=== PATIENT | male | born 1960 | race Two or more races ===

== ENCOUNTER 2017-01-03 17:11 | Emergency (ER) | payer OTHER ==
[~2017-01-03] VITALS: Ht 157.5 cm; Wt 76.0 kg
[2017-01-03 17:33] VITALS: Ht 157.5 cm; Wt 76.0 kg
[2017-01-03 19:30] VITALS: TEMP 98.2
[2017-01-03] MEDS ORDERED: ONDANSETRON 4 MG INJ IM STA (19:44)
[2017-01-03] MEDS ORDERED: AMLO-147 PO (19:51)
[2017-01-03] MEDS ORDERED: RANI150T5 PO (19:51)
[2017-01-03] MEDS ORDERED: METO-448 PO (19:52)
[2017-01-03] MEDS ORDERED: GABA300C16 PO (19:52)
[2017-01-03] MEDS ORDERED: SEVE800T7 PO (19:53)
--- NOTE | 2017-01-03 20:42 | RADRPT ---
PROCEDURE: CT Brain without. CLINICAL INDICATION: Weakness. TECHNIQUE: A CT of the brain was performed on multidetector high-resolution CT scanner utilizing a xial sections from the skull base through the vertex without contrast. The scan was reviewed in sof t tissue brain and high frequency resolution bone algorithm windows. Images were reviewed on a high -resolution PACS workstation. One or more the following does reduction techniques were utilized: Aut omated exposure control, adjustment of the mA/ or kV according to patient's size, or use of iterativ e reconstruction technique. The exam CTDI = 42.93 mGy and the DLP = 720.23 mGy-cm. COMPARISON: None available. FINDINGS: The ventricles and sulci are mildly prominent indicative of volume loss. There is no intracranial he morrhage, mass effect or midline shift. No abnormal intra-axial or extra-axial fluid collections ar e seen. The smith/white matter differentiation is preserved. There is prominent retrocerebellar CSF space measuring 1.1 cm in AP diameter which may represent yashira a cisterna magna versus arachnoid cyst. Partially empty sella is noted. There are minimal scattered foci of hypoattenuation in the white matter, which are nonspecific in et iology but likely reflect chronic small vessel ischemic changes. The visualized paranasal sinuses de monstrate mild to moderate mucosal thickening, more pronounced in ethmoid air cells. The mastoid ai r cells are essentially clear. IMPRESSION: 1. No acute intracranial hemorrhage, transcortical infarction or mass effect. If clinical concern p ersists consider brain MRI. 2. Minimal chronic small vessel ischemic changes. 3. Prominent retrocerebellar CSF space which may represent carolina cisterna magna versus arachnoid cys t. 4. Partially empty sella. 5. Mild generalized cerebral volume loss. RPTAT: HFN .Trudy Arzate MD, MD Date Time Electronically viewed and signed by .Trudy Arzate MD, MD on 01/03/2017 20:42 .N/
--- NOTE | 2017-01-03 21:07 | ERD ---
ER Documentation Chief Complaint Date/Time DATE: 01/03/17 TIME: 21:05 Chief Complaint Feeling Nauseated and weak after Dialysis today HPI 56-year-old man here for feeling nauseated midway through his dialysis. He states he received an hour and a half of hemodialysis and began feeling nauseous and somewhat dizzy. He denied chest pain, no headache or blurry vision , no slurred speech, no weakness in his arms or legs, no vomiting or diarrhea. Patient states his symptoms improved after leaving the dialysis center. ROS All systems reviewed and are negative except as per history of present illness. Medications Home Meds Active Scripts Ondansetron Hcl* (Zofran*) 4 Mg Tablet, 4 MG PO Q8H Y for NAUSEA AND/OR VOMITING , #30 TAB Prov:TITO MENDIOLA MD 01/03/17 Reported Medications Sevelamer Carbonate* (Renvela*) 800 Mg Tablet, 2.4 GM PO WITH MEALS, TAB 01/03/17 Metoprolol Tartrate* (Lopressor*) 25 Mg Tab, 25 MG PO BID, #60 TAB 01/03/17 Gabapentin* (Gabapentin*) 300 Mg Capsule, 300 MG PO DAILY, #30 CAP 01/03/17 Amlodipine Besylate* (Amlodipine Besylate*) 10 Mg Tablet, 10 MG PO DAILY, #30 TAB 01/03/17 Ranitidine Hcl* (Ranitidine Hcl*) 150 Mg Tablet, 150 MG PO Q12, #60 TAB 01/03/17 Allergies Allergies: Coded Allergies: No Known Allergy (Unverified , 01/03/17) PMhx/Soc Hypertension, end-stage kidney disease hemodialysis dependent History of Surgery: Yes (kidney stent) Anesthesia Reaction: No Hx Neurological Disorder: No Hx Respiratory Disorders: No Hx Cardiac Disorders: No Hx Psychiatric Problems: No Hx Miscellaneous Medical Probl: Yes (ESRD on HD) Hx Alcohol Use: No Hx Substance Use: No Hx Tobacco Use: No Smoking Status: Never smoker FmHx Family History: No diabetes Physical Exam Vitals Vital Signs Date Time Temp Pulse Resp B/P Pulse Ox O2 Delivery O2 Flow Rate FiO2 01/03/17 21:37 72 20 159/85 99 Room Air 01/03/17 19:30 98.2 73 20 173/85 98 Room Air 01/03/17 17:33 98.3 71 20 193/90 98 Physical Exam GENERAL: Well-developed, well-nourished, well-hydrated, in no apparent distress , looks nontoxic in appearance HEENT: Moist mucous membranes, pink conjunctiva, no cervical spine tenderness or step-off deformities, no goiter, no jaundice or icterus, extraocular movements intact without pain. No submandibular induration, and no pharyngeal erythema NEURO: Alert and oriented 3, cranial nerves II through XII intact bilaterally, pupils equal round reactive to light, no focal deficits or facial asymmetry, sensation intact distally Strength 5/5 in upper and lower extremities bilaterally CARDIAC: Regular rate and rhythm, no murmurs rubs or gallops LUNGS: Clear bilaterally no wheezing crackles or stridor ABDOMEN: Soft nontender, no guarding, no rigidity, no rebound, no psoas sign no obturator sign. Normoactive bowel sounds SKIN: Warm and dry to touch, no abrasions, contusions, or hematomas, no lacerations, no ecchymosis, no target lesions, and without ulcers EXTREMITIES: No clubbing cyanosis or edema, calves are bilaterally symmetrical, no Homans sign, no popliteal cord sign. Distal pulses equal and bilateral PSYCH: Normal affect without agitation or irritability Results 24 hrs Laboratory Tests Test 01/03/17 20:05 Troponin I < 0.012ng/ml Current Medications Medications (Trade) Dose Ordered Sig/Harjeet Route PRN Reason Start Time Stop Time Status Last Admin Dose Admin Ondansetron HCl (Zofran Inj) 4 mg ONCE STAT IM 01/03/17 19:44 01/03/17 19:47 DC 01/03/17 19:56 Clonidine (Catapres) 0.1 mg ONCE ONCE PO 01/03/17 20:00 01/03/17 20:01 DC 01/03/17 19:57 Procedures/MDM Patient was placed on autocad designer rhythm strip revealed a sinus rhythm at about 70 bpm with upright P and T waves. Patient was afebrile. CT scan of the brain was performed that was negative for acute bleed mass or shift. EKG performed, read by me: 68 bpm, normal sinus rhythm, normal axis, no acute ST segment changes, narrow QRS complex, with good R-wave progression in precordial leads. Troponin was negative. For his symptoms I administered Zofran 4 mg intramuscular injection, and clonidine 0.1 mg p.o. for hypertension. Differential diagnoses considered, included but not limited to acute coronary syndrome, pulmonary embolism, aortic dissection, abdominal aortic aneurysm, sepsis, stroke, meningitis, encephalitis, pneumonia, appendicitis, cholecystitis , bowel obstruction, pyelonephritis, nephrolithiasis, cystitis, as well as metabolic, hematologic, and electrolyte abnormalities. As well as abscess, cellulitis, fractures, and dislocations. Patient feels much better at this time, and vital signs are normal, symptoms have improved. I did give strict instructions to return to the ED if symptoms continue or worsen, patient will otherwise follow-up with primary care physician. Patient understood instructions and agreed to plan. Disclaimer: Inadvertent spelling and grammatical errors are likely due to EHR/ dictation software use and do not reflect on the overall quality of patient care. Also, please note that the electronic time recorded on this note does not necessarily reflect the actual time of the patient encounter. Departure Diagnosis: Primary Impression: Hypertension Hypertension type: essential hypertension Qualified Code: I10 - Essential hypertension Additional Impressions: Dizziness End stage kidney disease Condition: Good TITO MENDIOLA MD Jan 03, 2017 21:07
[2017-01-03] MEDS ORDERED: ONDA4TAB8 PO (21:27)
[2017-01-03 21:37] VITALS: BP 159/85; PULSE 72; RESP 20
== END 2017-01-03 21:40 | disposition home or self-care (01) ==
LOC: E/R 17:11
DX: I12.0 Hypertensive chronic kidney disease with stage 5 chronic kidney disease or end stage renal disease (principal); N18.6 End stage renal disease; R42 Dizziness and giddiness
CPT/HCPCS: 70450; 84484; 93005; 96372; J2405; Z7502; Z7610

== ENCOUNTER 2017-02-26 07:15 | Inpatient (IN) | payer OTHER ==
[~2017-02-26] VITALS: Ht 167.6 cm; Wt 72.3 kg
[~2017-02-26 07:15] MED LIST: AMLO-147 PO; GABA300C16 PO; METO-448 PO; ONDA4TAB8 PO; RANI150T5 PO; SEVE800T7 PO
--- NOTE | 2017-02-26 08:29 | RADRPT ---
PROCEDURE: XR Chest. CLINICAL INDICATION: Shortness of breath, cough TECHNIQUE: AP Portable chest. COMPARISON: No pertinent prior examinations were submitted for comparison. FINDINGS: The cardiac silhouette is enlarged. The aortic arch is calcified. The right hemidiaphragm is elevat ed. There are bilateral interstitial densities. The right minor fissure is thickened. Costophrenic angles are blunted. The pulmonary arteries are dilated. No pneumothorax is seen. The osseous stru ctures are intact. IMPRESSION: Interstitial edema or infiltrates. Probable trace pleural effusions. Physician Debora Date Time Electronically viewed and signed by Physician Debora on 02/26/2017 08:28 CS/
[2017-02-26 08:32] LABS: BASOPHIL # 0.1 10^3/ul (0.0-0.1); EOSINOPHILS # 0.9 10^3/ul (0.0-0.5); EOSINOPHILS % 6.8 % (0.0-7.0); HEMATOCRIT 26.4 % (42.0-52.0); LYMPHOCYTES # 1.2 10^3/ul (0.8-2.9); LYMPHOCYTES % 9.1 % (15.0-51.0); MEAN CORPUSCULAR HEMOGLOBIN 31.5 pg (29.0-33.0); MEAN CORPUSCULAR HGB CONC 34.1 g/dl (32.0-37.0); MEAN CORPUSCULAR VOLUME 92.3 fl (82.0-101.0); MEAN PLATELET VOLUME 9.3 fl (7.4-10.4); MONOCYTE # 1.4 10^3/ul (0.3-0.9); MONOCYTES % 10.6 % (0.0-11.0); PLATELET COUNT 268 10^3/UL (140-415); RED BLOOD COUNT 2.86 10^6/ul (4.70-6.10); RED CELL DISTRIBUTION WIDTH 13.2 % (11.5-14.5); WHITE BLOOD COUNT 13.3 10^3/ul (4.8-10.8)
--- NOTE | 2017-02-26 08:45 | ERA ---
ER Documentation Chief Complaint Date/Time DATE: 02/26/17 TIME: 08:42 Chief Complaint "cough congestion for past 3 days" received dialysis yesterday HPI 56-year-old male with a history of hypertension and ESRD on hemodialysis presenting with shortness of breath and cough for about 12 days. A chest x-ray was ordered yesterday after his dialysis and he was referred to a tortilla maker. Family called tortilla maker's office yesterday but was unable to get a hold of them. As he is worsening, they do not want to wait until Tuesday. He denies any associated fever, chills, colored phlegm, or chest pain. He does complain of worsening shortness of breath with exertion. He is unable to sleep secondary to his cough. He was told he had fluid in his lungs and needed to see this tortilla maker for further testing. In the meantime, he was given azithromycin prescription, which he started taking yesterday. ROS All systems reviewed and are negative except as per history of present illness. Medications Home Meds Reported Medications Tamsulosin Hcl* (Tamsulosin Hcl*) 0.4 Mg Cap.er.24h, 0.4 MG PO HS, CAP 02/26/17 Sevelamer Carbonate* (Renvela*) 800 Mg Tablet, 2.4 GM PO WITH MEALS, TAB 01/03/17 Metoprolol Tartrate* (Lopressor*) 25 Mg Tab, 25 MG PO BID, #60 TAB 01/03/17 Gabapentin* (Gabapentin*) 300 Mg Capsule, 300 MG PO DAILY, #30 CAP 01/03/17 Amlodipine Besylate* (Amlodipine Besylate*) 10 Mg Tablet, 10 MG PO DAILY, #30 TAB 01/03/17 Ranitidine Hcl* (Ranitidine Hcl*) 150 Mg Tablet, 150 MG PO Q12, #60 TAB 01/03/17 Discontinued Scripts Ondansetron Hcl* (Zofran*) 4 Mg Tablet, 4 MG PO Q8H Y for NAUSEA AND/OR VOMITING , #30 TAB Prov:TITO MENDIOLA MD 01/03/17 Allergies Allergies: Coded Allergies: No Known Allergy (Unverified , 02/26/17) PMhx/Soc History of Surgery: Yes (kidney stent) Anesthesia Reaction: No Hx Neurological Disorder: No Hx Respiratory Disorders: No Hx Cardiac Disorders: Yes (Hypertension) Hx Psychiatric Problems: No Hx Miscellaneous Medical Probl: Yes (ESRD on HD) Hx Alcohol Use: No Hx Substance Use: No Hx Tobacco Use: No Smoking Status: Never smoker FmHx Family History: No coronary disease Physical Exam Vitals Vital Signs Date Time Temp Pulse Resp B/P Pulse Ox O2 Delivery O2 Flow Rate FiO2 02/26/17 09:14 92 100 35 02/26/17 08:17 73 22 187/88 Room Air 02/26/17 08:11 Nasal Cannula 2 02/26/17 07:19 98.6 86 18 214/98 97 Physical Exam Const: Well-appearing, no apparent distress, speaking in full sentences, frequent dry cough on exam Head: Atraumatic Eyes: Normal Conjunctiva ENT: Normal External Ears, Nose and Mouth. Neck: Full range of motion..~ No meningismus. Resp: Clear to auscultation bilaterally, however limited as his respirations are shallow due to frequent coughing Cardio: Regular rate and rhythm, no murmurs Abd: Soft, non tender, non distended. Normal bowel sounds Skin: No petechiae or rashes Back: No midline or flank tenderness Ext: No cyanosis, or edema. Left upper extremity fistula with thrill Neur: Awake and alert and oriented 3, no facial asymmetry, strength and sensations intact in all 4 extremities Psych: Normal Mood and Affect Result Diagram: 02/26/17 0801 02/26/17 0801 Results 24 hrs Laboratory Tests Test 02/26/17 08:01 02/26/17 08:48 White Blood Count 13.310^3/ul Red Blood Count 2.8610^6/ul Hemoglobin 9.0g/dl Hematocrit 26.4% Mean Corpuscular Volume 92.3fl Mean Corpuscular Hemoglobin 31.5pg Mean Corpuscular Hemoglobin Concent 34.1g/dl Red Cell Distribution Width 13.2% Platelet Count 28199^3/UL Mean Platelet Volume 9.3fl Neutrophils % 72.0% Lymphocytes % 9.1% Monocytes % 10.6% Eosinophils % 6.8% Basophils % 1.0% Nucleated Red Blood Cells % 0.0/100WBC Neutrophils # (Manual) 1010^3/ul Lymphocytes # 1.210^3/ul Monocytes # 1.410^3/ul Eosinophils # 0.910^3/ul Basophils # 0.110^3/ul Nucleated Red Blood Cells # 0.010^3/ul Prothrombin Time 14.3Sec Prothrombin Time Ratio 1.1 INR International Normalized Ratio 1.11 Activated Partial Thromboplast Time 34.2Sec Sodium Level 132mmol/L Potassium Level 4.3mmol/L Chloride Level 86mmol/L Carbon Dioxide Level 28mmol/L Anion Gap 22 Blood Urea Nitrogen 24mg/dl Creatinine 7.53mg/dl Glucose Level 122mg/dl Calcium Level 9.6mg/dl Total Bilirubin 0.3mg/dl Direct Bilirubin 0.00mg/dl Indirect Bilirubin 0.3mg/dl Aspartate Amino Transf (AST/SGOT) 22IU/L Alanine Aminotransferase (ALT/SGPT) 31IU/L Alkaline Phosphatase 77IU/L Total Protein 7.9g/dl Albumin 4.0g/dl Globulin 3.90g/dl Albumin/Globulin Ratio 1.02 Troponin I 0.034ng/ml Current Medications Medications (Trade) Dose Ordered Sig/Harjeet Route PRN Reason Start Time Stop Time Status Last Admin Dose Admin Nitroglycerin (Nitroglycerin (Sl Tab) 0.4 Mg) 1 tab ONCE ONCE SL 02/26/17 09:00 02/26/17 09:01 DC 02/26/17 08:43 Hydralazine HCl (Apresoline) 10 mg ONCE ONCE IV 02/26/17 09:00 02/26/17 09:01 DC 02/26/17 08:43 Procedures/MDM EMERGENT LABS AND DIAGNOSTIC STUDIES: Lab Results above were reviewed and interpreted by me. CBC: no anemia or evidence of infection CMP: No evidence of electrolyte abnormality, renal failure, hypoglycemia, liver failure, or biliary obstruction Troponin within normal limits 12-lead EKG was interpreted by Winifred Daniel MD: Normal Sinus Rhythm Normal axis Normal intervals, nonspecific ST abnormalities No acute ST or T wave changes suggestive of acute ischemia or STEMI. Radiology Results as interpreted by Radiology below were reviewed by Gita Daniel MD: PROCEDURE: XR Chest. CLINICAL INDICATION: Shortness of breath, cough TECHNIQUE: AP Portable chest. COMPARISON: No pertinent prior examinations were submitted for comparison. FINDINGS: The cardiac silhouette is enlarged. The aortic arch is calcified. The right hemidiaphragm is elevated. There are bilateral interstitial densities. The right minor fissure is thickened. Costophrenic angles are blunted. The pulmonary arteries are dilated. No pneumothorax is seen. The osseous structures are intact. IMPRESSION: Interstitial edema or infiltrates. Probable trace pleural effusions. Physician Debora Date Time Electronically viewed and signed by Physician Debora on 02/26/2017 08: 28 Initial Nursing notes reviewed. Previous Medical Records requested via the Electronic Health Record. EMERGENCY DEPARTMENT COURSE / MEDICAL DECISION MAKING: Patient given IV hydralazine and nitro for his significantly elevated blood pressure. He had no hypoxia but was tachypneic in respiratory distress, so he was started on BiPAP. Patient is presenting with worsening shortness of breath and constellation of symptoms concerning for acute decompensated CHF. Vitals were notable for tachypnea and significantly elevated blood pressure. EKG shows no overt evidence of acute ischemia. Low suspicion for acute PE given exam and history. Low suspicion for acute ischemia, but will trend troponin. Chest x-ray showed interstitial infiltrates consistent with interstitial edema, however pneumonia could not be ruled out. Given the patient's clinical picture, I have a lower suspicion for pneumonia. Patient's symptoms significantly improved after he was given nitro and hydralazine for his hypertension and after BiPAP, so I cannot rule out hypertensive emergency as a possibility. Given decline in functional status, he will benefit from admission for further dialysis, hypertension management and cardiac evaluation. I spoke with Dr. Nichole, the admitting doctor, who requested blood cultures be sent and the patient be treated empirically for pneumonia. However I still think the patient does not need a full septic workup. Critical Care Time: 40 minutes Treatments/Evaluations: Close monitoring and treatment of unstable vital signs, cardiorespiratory, and neurologic status, while maintaining tight balance of fluid, respiratory, and cardiac interventions. This time includes discussing the case with the patient and the patients family. This time does not include all procedures stated elsewhere in this record. This time also includes reviewing old records, labs and radiological studies. This time includes examining and re-examining the patient. Additionally, this time also includes arranging care with admitting and consulting physicians. Accepting Care Team: Current data and ongoing care discussed. Time: Time of admission Primary Provider: Paola Consulting: Renal consulted for HD by admitting MD Outstanding Data: blood cultures Departure Diagnosis: Primary Impression: Acute respiratory failure Qualified Code: J96.00 - Acute respiratory failure, unspecified whether with hypoxia or hypercapnia Additional Impressions: Interstitial edema Qualified Code: R60.9 - Edema, unspecified type Chronic kidney disease Qualified Code: N18.9 - Chronic kidney disease, unspecified stage Condition: Serious OUMOU DANIEL MD Feb 26, 2017 08:45
[2017-02-26 08:46] LABS: ALBUMIN/GLOBULIN RATIO 1.02; BILIRUBIN,INDIRECT 0.3 mg/dl (0-1.1); BILIRUBIN,TOTAL 0.3 mg/dl (0.2-1.3); CALCIUM 9.6 mg/dl (8.4-10.2); CREATININE 7.53 mg/dl (0.61-1.24); POTASSIUM 4.3 mmol/L (3.5-5.1); TOTAL PROTEIN 7.9 g/dl (6.1-8.1)
[2017-02-26 08:53] LABS: INR 1.11; PARTIAL THROMBOPLASTIN TIME 34.2 Sec (25.0-35.0); PROTIME 14.3 Sec (12.2-14.2); PT RATIO 1.1
[2017-02-26] MEDS ORDERED: hydrALAzine 20 MG INJ IV ONE (09:00)
[2017-02-26] MEDS ORDERED: NITROGLYCERIN (SL) 0.4 MG TAB SL ONE (09:00)
[2017-02-26] MEDS ORDERED: ACETAMINOPHEN 325 MG TAB PO PRN ×2 (10:00→15:00)
[2017-02-26] MEDS ORDERED: ONDANSETRON 4 MG INJ IV PRN ×2 (10:00→15:00)
[2017-02-26] MEDS ORDERED: AZITHROMYCIN 500MG/NS (PMX) 250 ML IV STA (10:12)
[2017-02-26] MEDS ORDERED: CEFTRIAXONE 1 GM/50 ML (PMX) 50 ML IVPB STA (10:12)
[2017-02-26] MEDS ORDERED: TAMS0.4C2 PO (10:18)
[2017-02-26 11:48] VITALS: Ht 167.6 cm; Wt 72.3 kg
[2017-02-26 11:57] VITALS: BP 187/91; RESP 20
[2017-02-26 12:21] VITALS: PULSE 91
[2017-02-26 14:49] VITALS: BP 195/90; PULSE 84
[2017-02-26] MEDS: GABAPENTIN 300 MG CAP PO SCH (14:50)
[2017-02-26] MEDS: AMLODIPINE 10 MG TAB PO SCH (14:51)
[2017-02-26] MEDS: METOPROLOL 25 MG TAB PO SCH ×2 (14:51→21:12)
[2017-02-26] MEDS: RANITIDINE 150 MG TAB PO SCH (14:51)
[2017-02-26] MEDS ORDERED: ZOLPIDEM 5 MG TAB PO PRN (15:00)
[2017-02-26 15:25] VITALS: BP 181/96; RESP 20
[2017-02-26] MEDS: METHYLPREDNISOLONE 125 MG INJ IV SCH ×2 (15:36→21:12)
[2017-02-26] MEDS: ALBUTEROL/IPRATROPIUM (NEB) 3 ML AMP HHN SCH ×3 (15:44→20:05)
[2017-02-26] MEDS: ACETYLCYSTEINE 20% 4 ML VIAL NEB SCH ×2 (15:46→20:05)
[2017-02-26 16:51] VITALS: PULSE 85
[2017-02-26] MEDS: SEVELAMER CARBONATE 0.8 GM PKT PO SCH (18:11)
--- NOTE | 2017-02-26 18:40 | HP ---
DATE OF ADMISSION: 02/26/2017 CHIEF COMPLAINT: "I have been short of breath and coughing for 1 week with sweating and nausea." HISTORY OF PRESENT ILLNESS: The patient is a very pleasant, 56- year-old, [place] gentleman, with end-stage renal disease on hemodialysis Tuesday, Tuesday, and Tuesday, hypertension, GERD, and benign prostatic hypertrophy, who was in his usual state of health up until 1 week ago. He stated that he has been progressively short of breath and coughing while lying flat. He has also experienced diaphoresis and nausea, but no emesis. He denies any chest pain. He has had shortness of breath, however. It appeared his symptoms were predominantly at night while lying flat and are better with sitting up. He has been compliant with dialysis, which he has been on for approximately 3 years and underwent hemodialysis 1 day prior to admission. The patient stated that as the symptoms got worse, he presented to the emergency department for further evaluation and treatment. In the emergency department, the patient was hypertensive and was treated with intravenous medications and was placed on BiPAP. He defervesced and improved and was placed on the telemetry unit for further evaluation and treatment. ALLERGIES: NO KNOWN DRUG ALLERGIES. MEDICATIONS: 1. Tamsulosin 0.4 mg p.o. nightly. 2. Amlodipine 10 mg once daily. 3. Lopressor 25 mg twice daily. 4. Gabapentin 300 mg once daily. 5. Renvela 2.4 g with meals. 6. Ranitidine 150 mg p.o. twice daily. PAST SURGICAL HISTORY: 1. At age 14 in [facility], the patient had a surgery on his left kidney. He described as "cleaning of his kidney". 2. The patient had a fistula placed 3 years ago prior to the onset of dialysis. PAST MEDICAL HISTORY: As above. SOCIAL HISTORY: The patient smoked 2 to 3 cigarettes a day, but quit a year ago. He has done this off and on for approximately 30 years. Denies alcohol use. He lives in the [place] with his and daughter. 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 FAMILY HISTORY: Essentially noncontributory in this pleasant 56- year-old gentleman. REVIEW OF SYSTEMS: Essentially negative except as stated in the history of present illness. PHYSICAL EXAMINATION: VITAL SIGNS: Temperature is 98.6, blood pressure was severely elevated at 187/91, now down to 163/71, pulse rate ranged from 73 to 91, respiratory rate of 18 to 22, currently he is sating at 97 percent on room air. HEENT: Normocephalic, atraumatic. Extraocular moves are intact. His pupils are equal, round, and react to light and accommodation. Oropharynx is clear. No JVD was noted. No thyromegaly was noted. CARDIOVASCULAR: Regular rate and rhythm without appreciable murmurs, rubs, or gallops. LUNGS: He has poor air movement with inspiratory and expiratory wheezes bilaterally. No crackles or rales were noted. ABDOMEN: Abdomen is soft, nontender, nondistended. Normoactive bowel sounds present in all 4 quadrants. EXTREMITIES: H had 2 plus dorsalis pedis pulses, 2 plus radial pulses bilaterally. He had a shunt placed in his left upper arm and a thrill was present. NEUROLOGIC: He is alert, oriented times 4. Cranial nerves 2 through 12 grossly intact. Strength, sensation grossly intact. LABORATORY DATA/TESTS: Chest x-ray revealed interstitial edema or infiltrates and trace pleural effusions. White count 13.3, hemoglobin of 9.9, hematocrit of 26.4, platelet count of 268,000. Sodium 132, potassium 4.3, chloride 86, bicarb 28, anion gap 22, BUN 24, creatinine 7.53, glucose 122, calcium 9.6, total bilirubin 0.3, indirect 0.3, AST 22, ALT 31, alkaline phosphatase 77, troponin 0.034, total protein 7.9, albumin 4.0, globulin slightly elevated at 3.9. His PT is 14.3, INR 1.11, PTT of 34.2. IMPRESSION: 1. The patient is a very pleasant, 56-year-old gentleman, who presents with a 1 week history of cough, shortness of breath, diaphoresis and nausea. This predominantly occurred while laying flat. His x-ray reveals infiltrate edema. He was started on Rocephin and Zithromax. I have spoken to Dr. Real. He is brood station manager for the nephrology service. He will evaluate the patient in consultation and determine if additional dialysis needs to manage his volume. Will continue his Rocephin and Zithromax currently as well as Solu-Medrol and nebulizer treatment. I have also added Mucomyst as the patient stated that he has phlegm in his chest that he feels he cannot expectorate. 2. Hypertension: Needs better control. The patient will be started on Lopressor and Norvasc and additional agents to be added as needed. 3. Anemia: Appears to be stable with hemoglobin 9.0. This is likely secondary to chronic kidney disease. Will monitor his CBC and make treatment recommendations as needed. Dictated By: Tonny Guevara MD /tahmina/aurelio /Document#: [id number]
[2017-02-26 20:00] VITALS: BP 190/98; PULSE 86; RESP 20
[2017-02-26] MEDS ORDERED: ALPRAZOLAM 0.25 MG TAB PO ONE (21:00)
[2017-02-26] MEDS ORDERED: TAMSULOSIN (SR) 0.4 MG CAP PO SCH (21:00)
[2017-02-27] VITALS (10 sets, daily range): BP systolic 148–171; BP diastolic 70–84; PULSE 73–110; RESP 20
[2017-02-27] MEDS: ACETYLCYSTEINE 20% 4 ML VIAL NEB SCH ×2 (02:13→08:40)
[2017-02-27] MEDS: ALBUTEROL/IPRATROPIUM (NEB) 3 ML AMP HHN SCH ×4 (02:14→20:04)
[2017-02-27] MEDS: METHYLPREDNISOLONE 125 MG INJ IV SCH ×2 (06:39→14:32)
[2017-02-27 07:09] LABS: BASOPHILS % 0.4 % (0.0-2.0); HEMOGLOBIN 7.7 g/dl (14.0-18.0); LYMPHOCYTES # 0.7 10^3/ul (0.8-2.9); LYMPHOCYTES % 8.5 % (15.0-51.0); MEAN CORPUSCULAR HEMOGLOBIN 29.7 pg (29.0-33.0); MEAN CORPUSCULAR HGB CONC 33.5 g/dl (32.0-37.0); MEAN CORPUSCULAR VOLUME 88.8 fl (82.0-101.0); MEAN PLATELET VOLUME 9.8 fl (7.4-10.4); MONOCYTE # 0.3 10^3/ul (0.3-0.9); MONOCYTES % 3.3 % (0.0-11.0); NEUTROPHILS % 85.6 % (39.0-77.0); PLATELET COUNT 224 10^3/UL (140-415); RED BLOOD COUNT 2.59 10^6/ul (4.70-6.10); RED CELL DISTRIBUTION WIDTH 13.1 % (11.5-14.5); WHITE BLOOD COUNT 7.7 10^3/ul (4.8-10.8)
[2017-02-27 07:24] LABS: ALBUMIN 3.8 g/dl (3.3-4.9); CALCIUM 9.7 mg/dl (8.4-10.2); CREATININE 10.19 mg/dl (0.61-1.24); POTASSIUM 3.9 mmol/L (3.5-5.1)
[2017-02-27] MEDS: SEVELAMER CARBONATE 0.8 GM PKT PO SCH ×3 (09:02→17:34)
[2017-02-27] MEDS: AMLODIPINE 10 MG TAB PO SCH (09:03)
[2017-02-27] MEDS: RANITIDINE 150 MG TAB PO SCH (09:04)
[2017-02-27] MEDS: GABAPENTIN 300 MG CAP PO SCH (09:04)
[2017-02-27] MEDS: METOPROLOL 25 MG TAB PO SCH (09:04)
[2017-02-27] MEDS ORDERED: CEFTRIAXONE 1 GM/50 ML (PMX) 50 ML IVPB SCH (13:00)
[2017-02-27] MEDS ORDERED: AZITHROMYCIN 500MG/NS (PMX) 250 ML IVPB SCH (13:30)
[2017-02-27] MEDS ORDERED: METO-429 PO (15:46)
[2017-02-27] MEDS ORDERED: METOPROLOL 50 MG TAB PO SCH (21:00)
--- NOTE | 2017-02-28 05:28 | DS ---
DATE OF ADMISSION: 02/26/2017 DATE OF DISCHARGE: 02/27/2017 FINAL DIAGNOSES: 1. Tracheobronchitis. Stable. Continue with Zithromax for 5 more days and Medrol Dosepak. 2. End-stage renal disease. On hemodialysis, home, stable. Continue hemodialysis Tuesday, Tuesday, and Tuesday. 3. Hypertension. Stable. Continue outpatient medications including amlodipine, Lopressor. 4. Benign prostatic hypertrophy. Stable. Continue Flomax 0.4 mg nightly. 5. Gastroesophageal reflux disease. Stable. Continue 150 mg twice daily of ranitidine. HOSPITAL COURSE: The patient is a very pleasant 56-year-old gentleman with end-stage renal disease, on hemodialysis, who was in his usual state of health until approximately 1 week ago when he developed progressive shortness of breath and coughing while lying flat. He also experienced some diaphoresis and nausea, but no emesis. He presented to the Emergency Department with the aforementioned symptoms and was treated with intravenous hypertensive medications, as well as placed on BiPAP. The patient quickly defervesced and was placed on the Telemetry Unit for further evaluation and treatment. The patient was noted to have audible wheezing, predominantly in the upper chest area. I started him on Solu-Medrol 60 mg intravenously every 8 hours, as well as nebulizer treatments with Mucomyst. The patient stated that he has phlegm in her throat that he could not expectorate. After multiple doses of nebulized medications, as well as Solu-Medrol and intravenous antibiotics, the patient defervesced in 24 hours. He stated he was feeling much better after this treatment. His lung sounds cleared; however, he still had some wheezing in the neck and throat area. I discussed the patient's case with him in detail, as well as with his . The patient appears to have tracheobronchitis and it is responding to Zithromax and Solu-Medrol. For this reason, a joint decision was made to safely discharge the patient home on a 5-day course of Zithromax, as well as Solu-Medrol Dosepak. DISCHARGE CONDITION: Stable. DISPOSITION: Discharged home with . DISCHARGE MEDICATIONS: 1. Flomax 0.4 mg once nightly. 2. Amlodipine 10 mg once daily. 3. Lopressor 50 mg twice daily. (this was increased from 25 mg twice daily). 4. Gabapentin 300 mg once daily. 5. Renvela 2.4 g with meals. 6. Ranitidine 150 mg p.o. twice daily. 7. The patient was also given Zithromax for 5 additional days. 8. The patient was also given a Medrol Dosepak to complete his course. FOLLOWUP: The patient is to follow with hemodialysis tomorrow. His schedule is Tuesday, Tuesday, and Tuesday. He has also agreed to follow up with his primary care physician ( ) in 1 week as well. Dictated By: Tonny Guevara MD /tahmina/melvin /Document#: [id number]
--- NOTE | 2017-02-28 07:46 | RADRPT ---
PROCEDURE: US Abdomen and Retroperitoneum. CLINICAL INDICATION: Right upper quadrant pain evaluate cholelithiasis. TECHNIQUE: Multiple real-time longitudinal and transverse images were acquired of the patient's ab domen and retroperitoneum utilizing a curved array transducer. COMPARISON: None FINDINGS: Liver appears normal in size and echotexture No focal masses identified. Normal hepatopedal flow is seen within the main portal vein. The gallbladder is contracted without evidence of wall thickening or stones. No intra or extrahepatic biliary dilatation is seen. The common bile duct measures 3.1 mm in maximal dimension. The visualized portions of the pancreas are unremarkable. The spleen is normal in size and homogeneous in echogenicity. No free fluid is identified. The right kidney measures 9.6 cm. The left kidney measures 10.9 cm. There is normal echogenicity within the kidneys. There are no perinephric fluid collections. There is left-sided hydronephrosis with multiple left renal cysts as well. The largest measures 3.4 x 3.7 x 3.2 cm The aorta and IVC are unremarkable. There is a small amount of ascites seen in the right upper quadrant. IMPRESSION: 1. Contracted gallbladder without filling defects or biliary tree dilatation. This could be due to a nonfasting study. 2. Left-sided hydronephrosis. 3. Multiple left renal cysts. RPTAT: [facility] Physician Reynold Date Time Electronically viewed and signed by Physician Reynold on 02/28/2017 07:46 /
== END 2017-02-27 20:20 | disposition home or self-care (01) | DRG 202 ==
LOC: E/R 07:15 → TEL 09:47
PROVIDERS: ADMIT Internal Medicine; ATTEND Internal Medicine
DX: J40 Bronchitis, not specified as acute or chronic (principal); N18.6 End stage renal disease; I12.0 Hypertensive chronic kidney disease with stage 5 chronic kidney disease or end stage renal disease; Z87.891 Personal history of nicotine dependence; Z99.2 Dependence on renal dialysis; N40.0 Benign prostatic hyperplasia without lower urinary tract symptoms; K21.9 Gastro-esophageal reflux disease without esophagitis
CPT/HCPCS: 36415; 71010; 76700; 80053; 80061; 80069; 84484; 85025; 85610; 85730; 87040; 87081; 93005; 94640; 94660; 94664; 96374; J0360; J0456; J0696; J2930

== ENCOUNTER 2017-04-08 22:27 | Inpatient (IN) | payer MEDICARE, OTHER ==
[~2017-04-08] VITALS: Ht 162.6 cm; Wt 71.0 kg
[~2017-04-08 22:27] MED LIST changes: +METO-429 PO; -METO-448 PO; -ONDA4TAB8 PO; +TAMS0.4C2 PO
[2017-04-09] VITALS (21 sets, daily range): BP systolic 160–197; BP diastolic 71–95; PULSE 64–80; RESP 15–20; Ht 162.6 cm; Wt 71.0 kg
[2017-04-09] MEDS ORDERED: morphine 4 MG/ML VIAL IV STA (00:21)
[2017-04-09] MEDS ORDERED: LABETALOL HCL 20MG INJ IV ONE (00:30)
--- NOTE | 2017-04-09 00:36 | RADRPT ---
PROCEDURE: XR Chest. CLINICAL INDICATION: Chest pain. TECHNIQUE: Single frontal view. COMPARISON: 02/26/2017. FINDINGS: Previously noted interstitial pulmonary disease is no longer present. The lungs are now clear. The heart size is normal. There is no pleural effusion. There is no pneumothorax. IMPRESSION: 1. Normal chest radiograph. RPTAT: QQ .Jose Escoto MD, MD Date Time Electronically viewed and signed by .Jose Escoto MD, MD on 04/09/2017 00:35 .R/
[2017-04-09 01:04] LABS: BASOPHIL # 0.1 10^3/ul (0.0-0.1); BASOPHILS % 0.8 % (0.0-2.0); EOSINOPHILS # 0.9 10^3/ul (0.0-0.5); EOSINOPHILS % 7.2 % (0.0-7.0); HEMATOCRIT 39.9 % (42.0-52.0); HEMOGLOBIN 12.7 g/dl (14.0-18.0); LYMPHOCYTES # 1.7 10^3/ul (0.8-2.9); LYMPHOCYTES % 14.2 % (15.0-51.0); MEAN CORPUSCULAR HGB CONC 31.8 g/dl (32.0-37.0); MEAN CORPUSCULAR VOLUME 97.3 fl (82.0-101.0); MEAN PLATELET VOLUME 10.3 fl (7.4-10.4); MONOCYTE # 1.1 10^3/ul (0.3-0.9); MONOCYTES % 9.2 % (0.0-11.0); NEUTROPHIL # 8.2 10^3/ul (1.6-7.5); NEUTROPHILS % 68.3 % (39.0-77.0); PLATELET COUNT 145 10^3/UL (140-415); RED CELL DISTRIBUTION WIDTH 15.9 % (11.5-14.5)
[2017-04-09 01:19] LABS: INR 1.05; PROTIME 13.7 Sec (12.2-14.2); PT RATIO 1.1
[2017-04-09 01:20] LABS: PARTIAL THROMBOPLASTIN TIME 27.2 Sec (25.0-35.0)
[2017-04-09 01:23] LABS: CALCIUM 9.7 mg/dl (8.4-10.2); CREATININE 12.8 mg/dl (0.61-1.24); POTASSIUM 4.9 mmol/L (3.5-5.1)
[2017-04-09 01:34] LABS: TROPONIN-I 0.018 ng/ml (0.00-0.12)
[2017-04-09] MEDS ORDERED: morphine 10 MG INJ IM ONE (02:00)
[2017-04-09] MEDS ORDERED: SOD CHLORIDE 0.9% 500 ML IV ONE (02:00)
[2017-04-09] MEDS ORDERED: hydrALAzine 20 MG INJ IV ONE (02:00)
--- NOTE | 2017-04-09 02:56 | ERA ---
ER Documentation Chief Complaint Date/Time DATE: 04/09/17 TIME: 02:48 Chief Complaint sent by DR. JENKINS for surgery in am- left arm AV fistula needs declotting HPI This 56-year-old male presents for a clotted left upper arm fistula. He has significant pain in his upper arm. Last dialysis was on Tuesday. His vascular surgeon told him to come to this hospital to obtain surgery. There is no documentation of this but I did check with the surgery team and the patient is scheduled for surgery in the morning. He has no chest pain or shortness of breath. States that he is taking his blood pressure medications normally. ROS All systems reviewed and are negative except as per history of present illness. Medications Home Meds Active Scripts Metoprolol Tartrate* (Lopressor*) 50 Mg Tab, 50 MG PO BID for 30 Days, #60 TAB 0 Refills Prov:REENA CLAUDIO MD 02/27/17 Reported Medications Tamsulosin Hcl* (Tamsulosin Hcl*) 0.4 Mg Cap.er.24h, 0.4 MG PO HS, CAP 02/26/17 Sevelamer Carbonate* (Renvela*) 800 Mg Tablet, 2.4 GM PO WITH MEALS, TAB 01/03/17 Gabapentin* (Gabapentin*) 300 Mg Capsule, 300 MG PO DAILY, #30 CAP 01/03/17 Amlodipine Besylate* (Amlodipine Besylate*) 10 Mg Tablet, 10 MG PO DAILY, #30 TAB 01/03/17 Ranitidine Hcl* (Ranitidine Hcl*) 150 Mg Tablet, 150 MG PO Q12, #60 TAB 01/03/17 Allergies Allergies: Coded Allergies: No Known Allergy (Unverified , 02/26/17) PMhx/Soc History of Surgery: Yes (kidney stents, left upper arm av shunt) Anesthesia Reaction: No Hx Neurological Disorder: No Hx Respiratory Disorders: No Hx Cardiac Disorders: Yes (hypertension) Hx Psychiatric Problems: No Hx Miscellaneous Medical Probl: No Hx Alcohol Use: No Hx Substance Use: No Hx Tobacco Use: Yes Smoking Status: Current every day smoker Physical Exam Vitals Vital Signs Date Time Temp Pulse Resp B/P Pulse Ox O2 Delivery O2 Flow Rate FiO2 04/09/17 02:18 81 178/85 98 Room Air 04/09/17 01:43 20 196/96 04/09/17 00:55 74 178/74 04/08/17 22:35 98.2 62 20 212/101 99 Physical Exam Const: [] Distress, appears uncomfortable. Head: Atraumatic Eyes: Normal Conjunctiva ENT: Normal External Ears, Nose and Mouth. Neck: Full range of motion..~Mild JVD. Resp: Clear to auscultation bilaterally Cardio: Regular rate and rhythm, no murmurs Abd: Soft, non tender, non distended. Normal bowel sounds Skin: No petechiae or rashes Back: No midline or flank tenderness Ext: No cyanosis, or edema, upper extremity bulge with appearance of a fistula with no palpable thrill, or to palpation. Distal pulses intact in all 4 extremities and bounding. Neur: Awake and alert and oriented 3, no focal deficits, Psych: Normal Mood and Affect Result Diagram: 04/09/173404/09/1734 Results 24 hrs Laboratory Tests Test 04/09/17 00:35 White Blood Count 12.010^3/ul Red Blood Count 4.1010^6/ul Hemoglobin 12.7g/dl Hematocrit 39.9% Mean Corpuscular Volume 97.3fl Mean Corpuscular Hemoglobin 31.0pg Mean Corpuscular Hemoglobin Concent 31.8g/dl Red Cell Distribution Width 15.9% Platelet Count 37419^3/UL Mean Platelet Volume 10.3fl Neutrophils % 68.3% Lymphocytes % 14.2% Monocytes % 9.2% Eosinophils % 7.2% Basophils % 0.8% Nucleated Red Blood Cells % 0.0/100WBC Neutrophils # 8.210^3/ul Lymphocytes # 1.710^3/ul Monocytes # 1.110^3/ul Eosinophils # 0.910^3/ul Basophils # 0.110^3/ul Nucleated Red Blood Cells # 0.010^3/ul Prothrombin Time 13.7Sec Prothrombin Time Ratio 1.1 INR International Normalized Ratio 1.05 Activated Partial Thromboplast Time 27.2Sec Sodium Level 140mmol/L Potassium Level 4.9mmol/L Chloride Level 101mmol/L Carbon Dioxide Level 25mmol/L Anion Gap 19 Blood Urea Nitrogen 65mg/dl Creatinine 12.80mg/dl Glucose Level 102mg/dl Calcium Level 9.7mg/dl Troponin I 0.018ng/ml Current Medications Medications (Trade) Dose Ordered Sig/Harjeet Route PRN Reason Start Time Stop Time Status Last Admin Dose Admin Morphine Sulfate (morphine) 4 mg ONCE STAT IV 04/09/17 00:21 04/09/17 00:23 DC 04/09/17 00:41 Labetalol HCl (Labetalol) 20 mg ONCE ONCE IV 04/09/17 00:30 04/09/17 00:31 DC 04/09/17 00:41 Morphine Sulfate 6 mg 6 mg ONCE ONCE IM 04/09/17 02:00 04/09/17 02:01 DC 04/09/17 02:03 Sodium Chloride (NS) 500 ml @ 500 mls/hr Q1H ONCE IV 04/09/17 02:00 04/09/17 02:59 04/09/17 02:00 Hydralazine HCl (Apresoline) 10 mg ONCE ONCE IV 04/09/17 02:00 04/09/17 02:01 DC 04/09/17 02:03 Diphenhydramine HCl (Benadryl) 25 mg ONCE ONCE PO 04/09/17 03:00 04/09/17 03:01 04/09/17 02:44 Procedures/MDM Severe hypertension with clotted upper extremity graft, patient with significant pain. Required 2 doses of morphine in order to ease his pain. Did have itching after that was given 25 mg of IM Benadryl. Significantly elevated blood pressure did decrease somewhat with labetalol. Admitting him to telemetry for further monitoring of his severe hypertension. Ultrasound does varum clotted upper arm graft. Patient is placed n.p.o. and will be admitted with surgery scheduled for the morning. Dr. Perez is admitting. EKG interpretation: Normal sinus rhythm rate of 67, normal axis, no ST or T- wave changes concerning for acute ischemia. molding machine operator helper interpretation: Normal sinus rhythm without arrhythmia Chest x-ray interpretation: I see no acute process, no widened mediastinum, no pneumothorax, no fractures. Medical care time greater than 35 minutes: Secludes treatment of severe hypertension in a patient with significant distress and fluid overload, use of vasoactive medication labetalol, multiple suspicious bedside reassess status, chart review, discussion with admitting DrPeggy and discussion with patient. This did not include any billable procedures. Departure Diagnosis: Primary Impression: Complication of vascular access for dialysis Additional Impressions: Severe hypertension Acute on chronic renal failure Leukocytosis, unspecified Condition: Serious ZOLTAN JACOBSON DO Apr 09, 2017 02:56
[2017-04-09] MEDS ORDERED: DIPHENHYDRAMINE 50 MG INJ IV ONE (03:00)
[2017-04-09] MEDS ORDERED: DIPHENHYDRAMINE 25 MG CAP PO ONE (03:00)
--- NOTE | 2017-04-09 03:15 | RADRPT ---
PROCEDURE: Vascular arterial upper extremity graft left CLINICAL INDICATION: Pain, unable to dialyze, no thrill TECHNIQUE: Color and duplex Doppler ultrasound of the left upper extremity arteriovenous graft was performed. COMPARISON: None available FINDINGS: There is complete thrombosis of the left upper extremity arteriovenous graft. Flow is seen in the l eft brachial, radial and ulnar arteries. IMPRESSION: Complete thrombosis of proximal, mid and distal left upper extremity arteriovenous graft. RPTAT: HJES .Pablito Chacon MD, MD Date Time Electronically viewed and signed by .Pablito Chacon MD, MD on 04/09/2017 03:14 .S/
[2017-04-09] MEDS ORDERED: ACETAMINOPHEN 325 MG TAB PO PRN (05:00)
[2017-04-09] MEDS ORDERED: morphine 10 MG INJ IM PRN (05:00)
[2017-04-09] MEDS ORDERED: ONDANSETRON 4 MG INJ IV PRN ×2 (05:00→09:00)
[2017-04-09] MEDS: hydrALAzine 20 MG INJ IV PRN ×3 (06:51→22:04)
--- NOTE | 2017-04-09 06:52 | CONS ---
Date/Time of Note Date/Time of Note DATE: 04/09/17 TIME: 06:42 Assessment/Plan Assessment/Plan Chief Complaint/Hosp Course 56M w/ ESRD on HD via LUE AVF now w/ completely thrombosed LUE BC AVF Plan: -Appreciate medical management -Will plan for LUE AVF thrombectomy, possible fistulogram w/ intervention, possible permacath - indications, risks and benefits of procedure were d/w pt, who understood and agreed to proceed -Pt will need renal consult post-op for dialysis recommendations Thank you and please call with questions Problems: Consultation Date/Type/Reason Admit Date/Time Apr 09, 2017 at 02:16 Date of Consultation: Apr 09, 2017 Reason for Consultation Thrombosed LUE AVF Referring Provider: DAVID KNIGHT MD Hx of Present Illness 56 y/o hypertensive man, R handed, has ESRD due to PCKD and is s/p LUE AVF by Dr. Nelson 12/12/2014 and had been loss to follow-up presented to vascular surgery office from dialysis yesterday w/ thrombosed LUE AVF. He was evaluated by Dr. Cortes who felt that open surgical thrombectomy was required. He was sent to ER overnight for admission for surgery this morning. Pt says AVF was last used on but was dysfunctional yesterday. He denies L hand pain or swelling. He also denies F, C, SOB, CP, N/V. Constitutional: no complaints Eyes: no complaints ENT: no complaints Respiratory: no complaints Cardiovascular: no complaints Gastrointestinal: no complaints Genitourinary: no complaints Musculoskeletal: no complaints Skin: no complaints Psychological: no complaints Past Medical History hypertensive polycystic kidney disease ESRD Past Surgical History LUE BC AVF 2014 Family History Significant Family History: no pertinent family hx Social History Alcohol Use: none Smoking Status: Never smoker Drug Use: none Exam/Review of Systems Vital Signs Vitals Vital Signs Date Time Temp Pulse Resp B/P Pulse Ox O2 Delivery O2 Flow Rate FiO2 04/09/17 04:53 78 04/09/17 02:18 178/85 98 Room Air 04/09/17 01:43 20 04/08/17 22:35 98.2 Exam Gen: AAOx3, NAD Neck: supple Heart: Reg Lungs: clear Abd: soft, NT, ND Extr: Completely thrombosed LUE AVF, small aneurysmal areas noted as previous cannulation sites; no erythema, no wounds, no edema, palpable brachial and radial pulses Results Result Diagram: 04/09/17 0035 04/09/17 0035 Results 24 hrs Laboratory Tests Test 04/09/17 00:35 White Blood Count 12.0 #H Red Blood Count 4.10 #L Hemoglobin 12.7 #L Hematocrit 39.9 #L Mean Corpuscular Volume 97.3 Mean Corpuscular Hemoglobin 31.0 Mean Corpuscular Hemoglobin Concent 31.8 L Red Cell Distribution Width 15.9 #H Platelet Count 145 # Mean Platelet Volume 10.3 Neutrophils % 68.3 Lymphocytes % 14.2 L Monocytes % 9.2 Eosinophils % 7.2 H Basophils % 0.8 Nucleated Red Blood Cells % 0.0 Neutrophils # 8.2 H Lymphocytes # 1.7 Monocytes # 1.1 H Eosinophils # 0.9 H Basophils # 0.1 Nucleated Red Blood Cells # 0.0 Prothrombin Time 13.7 Prothrombin Time Ratio 1.1 INR International Normalized Ratio 1.05 Activated Partial Thromboplast Time 27.2 Sodium Level 140 Potassium Level 4.9 Chloride Level 101 Carbon Dioxide Level 25 Anion Gap 19 H Blood Urea Nitrogen 65 H Creatinine 12.80 H Glucose Level 102 Calcium Level 9.7 Troponin I 0.018 Medications Medications Current Medications Acetaminophen (Tylenol Tab) 650 mg Q6H PRN PO PAIN AND OR ELEVATED TEMP; Start 04/09/17 at 05:00 Ondansetron HCl (Zofran Inj) 4 mg Q6H PRN IV NAUSEA AND/OR VOMITING; Start at 05:00 Morphine Sulfate (morphine) 3 mg Q4H PRN IM PAIN LEVEL 8-10; Start 04/09/17 at 05:00 Hydralazine HCl (Apresoline) 10 mg Q4H PRN IV ELEVATED BLOOD PRESSURE; Start at 05:00 Amlodipine Besylate (Norvasc) 10 mg DAILY PO ; Start 04/09/17 at 09:00 Gabapentin (Neurontin) 300 mg DAILY PO ; Start 04/09/17 at 09:00 Metoprolol Tartrate (Lopressor) 50 mg BID PO ; Start 04/09/17 at 09:00 Ranitidine HCl (Zantac) 150 mg DAILY PO ; Start 04/09/17 at 09:00 Tamsulosin HCl (Flomax) 0.4 mg HS PO ; Start 04/09/17 at 21:00 THONY MIRAMONTES MD Apr 09, 2017 06:52
[2017-04-09] MEDS ORDERED: LIDOCAINE 1% (MPF) 30 ML INJ ONE (07:08)
[2017-04-09] MEDS ORDERED: GELATIN SIZE 100 SPONGE ONE (07:08)
[2017-04-09] MEDS ORDERED: IOHEXOL 300MG/ML 30 ML BTL ONE ×3 (07:09→10:45)
[2017-04-09] MEDS ORDERED: HEPARIN 1000 UNITS/ML 10 ML INJ ONE ×3 (07:09→10:34)
[2017-04-09] MEDS ORDERED: THROMBIN 5000 UNIT VIAL ONE (07:09)
[2017-04-09] MEDS ORDERED: BUPIVACAINE 0.5% (SDV) 30 ML INJ ONE (07:09)
[2017-04-09] MEDS: SEVELAMER CARBONATE 0.8 GM PKT PO SCH ×3 (07:55→18:22)
[2017-04-09] MEDS ORDERED: MIDAZOLAM 1 MG/ML 2 ML INJ ONE (08:01)
[2017-04-09] MEDS ORDERED: PROPOFOL 20 ML ONE ×6 (08:01→10:52)
[2017-04-09] MEDS ORDERED: METOCLOPRAMIDE 10 MG INJ ONE (08:02)
[2017-04-09] MEDS ORDERED: CEFAZOLIN 1 GM INJ ONE (08:21)
[2017-04-09] MEDS ORDERED: FENTAnyl 50 MCG/ML VIAL ONE (08:24)
[2017-04-09] MEDS ORDERED: HYDROmorphONE (0.2 MG/ML) 10ML SYG IV PRN ×3 (09:00)
[2017-04-09] MEDS ORDERED: LABETALOL HCL 20MG INJ IV PRN (09:00)
[2017-04-09] MEDS ORDERED: hydrALAzine 20 MG INJ IV PRN (09:00)
[2017-04-09] MEDS ORDERED: EPHEDrine SULFATE 50 MG/5 ML SYG ONE (09:56)
[2017-04-09] MEDS ORDERED: METOPROLOL 5 MG INJ ONE (12:04)
--- NOTE | 2017-04-09 12:46 | SIPON ---
Date/Time of Note Date/Time of Note DATE: 04/09/17 TIME: 12:45 Operative Report Preoperative Diagnosis ESRD, Thrombosed LUE AVF Postoperative Diagnosis same Operation/Procedure Performed Open thrombectomy LUE AVF, brachial and radial arteries LUE fistulogram w/ venoplasty Surgeon Thony Miramontes MD academic support assistant N/A Anesthesia: MAC Estimated blood loss: 50 - 100 ml's Transfusion Required none Specimen Thrombus Grafts/Implants none Complications none THONY MIRAMONTES MD Apr 09, 2017 12:46
[2017-04-09] MEDS ORDERED: NACL 0.9% 3 ML SYG IV SCH (13:00)
--- NOTE | 2017-04-09 13:41 | HP ---
Date/Time of Note Date/Time of Note DATE: 04/09/17 TIME: 13:41 Assessment/Plan VTE Prophylaxis VTE Prophylaxis Intervention: SCD's Lines/Catheters IV Catheter Type (from Nrsg): Peripheral IV Urinary Cath still in place: No Assessment/Plan Assessment/Plan 56-year-old male with: 1. Left upper extremity thrombosed fistula, status post attempt declotting this morning by Dr. Garza from vascular surgery, he had to do a cutdown and cleaned out a lot of thrombus. It is unclear if the fistula will be functional , I have contacted Dr. Bray, he will arrange for dialysis today, if unsuccessful, patient will need a permacath placed by Vascular, Dr Garza. 2. End-stage renal disease secondary to hypertensive nephropathy, last successful dialysis fistula was this past Tuesday, HD to be ordered today by nephrology. Patient on Tuesday/Tuesday/Tuesday schedule 3. Hypertension: Resume home medications, hydralazine as needed. 4. GERD: Continue Zantac 5. BPH: Continue Flomax Prophylaxis: Zantac, Pepcid for GI prophylaxis, heparin subcu for DVT prophylaxis Disposition: Attempt at dialysis today, if unable will need permacath placement , follow-up with nephrology vascular surgery HPI/ROS Admit Date/Time Admit Date/Time Apr 09, 2017 at 02:16 Hx of Present Illness Chief complaint: Clotted fistula History of presenting illness: This is a 56-year-old male with history of hypertension and end-stage renal disease on hemodialysis, who apparently has been having difficulty with dialysis to his left upper extremity fistula for the past week, he was sent to his vascular surgeon who did try to declot the fistula in the office and was unable therefore the patient was referred to [facility] ER and the patient was subsequently admitted and seen by Dr. Garza who did declot the fistula this morning the best he could including doing a cutdown, patient is currently stable but need to be dialyzed today or at least an attempt, if unable to dialyze he will need a permacath to be placed by vascular surgery. He denies chest pain, shortness of breath, nausea, vomiting. Dr. Bray has been contacted to order dialysis today. ROS Constitutional: fatigue Eyes: no complaints ENT: no complaints Respiratory: no complaints Cardiovascular: no complaints Gastrointestinal: no complaints Genitourinary: no complaints Musculoskeletal: other (left UE pain post attempted declot of Fistula ) Skin: no complaints Neurologic: no complaints Endocrine: no complaints Psychological: no complaints PMH/Family/Social Past Medical History Hypertension End-stage renal disease on hemodialysis Past Surgical History Status post left kidney surgery remotely Status post left upper extremity fistula placement 3 years ago Family History Significant Family History: no pertinent family hx Social History Alcohol Use: none Smoking Status: Former smoker (Quit a long time ago) Drug Use: none Exam/Review of Systems Vital Signs Vitals Vital Signs Date Time Temp Pulse Resp B/P Pulse Ox O2 Delivery O2 Flow Rate FiO2 04/09/17 13:18 66 17 163/80 98 Nasal Cannula 2.0 04/09/17 12:21 97.7 Exam Constitutional: alert, oriented, well developed Respiratory: clear to auscultation, normal air movement Cardiovascular: nl pulses, regular rate and rhythm Gastrointestinal: non-tender, soft Musculoskeletal: other (No edema, clubbing or cyanosis) Extremities: other (Left upper extremity status post declotting of fistula) Neurological: PAPER SALES REPRESENTATIVE II-XII intact, nl mental status, nl speech, nl strength Labs Result Diagram: 04/09/175 04/09/17 0035 Medications Medications Current Medications Acetaminophen (Tylenol Tab) 650 mg Q6H PRN PO PAIN AND OR ELEVATED TEMP; Start 04/09/17 at 05:00 Ondansetron HCl (Zofran Inj) 4 mg Q6H PRN IV NAUSEA AND/OR VOMITING; Start at 05:00 Morphine Sulfate (morphine) 3 mg Q4H PRN IM PAIN LEVEL 8-10; Start 04/09/17 at 05:00 Hydralazine HCl (Apresoline) 10 mg Q4H PRN IV ELEVATED BLOOD PRESSURE Last administered on 04/09/17t 13:16; Admin Dose 10 MG; Start 04/09/17 at 05:00 Amlodipine Besylate (Norvasc) 10 mg DAILY PO ; Start 04/09/17 at 09:00 Gabapentin (Neurontin) 300 mg DAILY PO ; Start 04/09/17 at 09:00 Metoprolol Tartrate (Lopressor) 50 mg BID PO ; Start 04/09/17 at 09:00 Ranitidine HCl (Zantac) 150 mg DAILY PO ; Start 04/09/17 at 09:00 Tamsulosin HCl (Flomax) 0.4 mg HS PO ; Start 04/09/17 at 21:00 Influenza Virus Vaccine (Fluzone) 0.5 ml ONCE ONCE IM* ; Start 04/10/17 at 09:00 ; Stop 04/10/17 at 09:01 Procedures Procedures PROCEDURE: Vascular arterial upper extremity graft left CLINICAL INDICATION: Pain, unable to dialyze, no thrill TECHNIQUE: Color and duplex Doppler ultrasound of the left upper extremity arteriovenous graft was performed. COMPARISON: None available FINDINGS: There is complete thrombosis of the left upper extremity arteriovenous graft. Flow is seen in the left brachial, radial and ulnar arteries. IMPRESSION: Complete thrombosis of proximal, mid and distal left upper extremity arteriovenous graft. RPTAT: HJES .Pablito Chacon MD, Date Time Electronically viewed and signed by .Pablito Chacon MD, on 04/09/2017 03:14 .S/ PROCEDURE: XR Chest. CLINICAL INDICATION: Chest pain. TECHNIQUE: Single frontal view. COMPARISON: 02/26/2017. FINDINGS: Previously noted interstitial pulmonary disease is no longer present. The lungs are now clear. The heart size is normal. There is no pleural effusion. There is no pneumothorax. IMPRESSION: 1. Normal chest radiograph. RPTAT: QQ .Jose Escoto MD, MD Date Time Electronically viewed and signed by .Jose Escoto MD, MD on 04/09/2017 00:35 .R/ CC: ZOLTAN JACOBSON N'DEYE F Apr 09, 2017 13:41
[2017-04-09] MEDS ORDERED: morphine 2 MG INJ IV PRN (14:30)
[2017-04-09] MEDS: RANITIDINE 150 MG TAB PO SCH (14:33)
[2017-04-09] MEDS: GABAPENTIN 300 MG CAP PO SCH (14:33)
[2017-04-09] MEDS: METOPROLOL 50 MG TAB PO SCH ×3 (14:34→22:10)
[2017-04-09] MEDS: AMLODIPINE 10 MG TAB PO SCH (14:35)
[2017-04-09 14:46] LABS: BASOPHIL # 0.1 10^3/ul (0.0-0.1); BASOPHILS % 0.7 % (0.0-2.0); EOSINOPHILS # 0.6 10^3/ul (0.0-0.5); HEMATOCRIT 39.5 % (42.0-52.0); HEMOGLOBIN 12.3 g/dl (14.0-18.0); LYMPHOCYTES # 1.8 10^3/ul (0.8-2.9); LYMPHOCYTES % 15.6 % (15.0-51.0); MEAN CORPUSCULAR HEMOGLOBIN 31.4 pg (29.0-33.0); MEAN CORPUSCULAR HGB CONC 31.1 g/dl (32.0-37.0); MEAN CORPUSCULAR VOLUME 100.8 fl (82.0-101.0); MONOCYTE # 1.3 10^3/ul (0.3-0.9); MONOCYTES % 11.3 % (0.0-11.0); NEUTROPHIL # 7.9 10^3/ul (1.6-7.5); NEUTROPHILS % 67.1 % (39.0-77.0); PLATELET COUNT 126 10^3/UL (140-415); RED BLOOD COUNT 3.92 10^6/ul (4.70-6.10); RED CELL DISTRIBUTION WIDTH 15.9 % (11.5-14.5); WHITE BLOOD COUNT 11.7 10^3/ul (4.8-10.8)
[2017-04-09] MEDS: morphine 4 MG/ML VIAL IV PRN ×2 (14:49→18:23)
[2017-04-09 15:08] LABS: ALBUMIN 3.7 g/dl (3.3-4.9); ALBUMIN/GLOBULIN RATIO 1.27; CALCIUM 8.8 mg/dl (8.4-10.2); CREATININE 13.66 mg/dl (0.61-1.24); PHOSPHORUS 9.7 mg/dl (2.5-4.9); POTASSIUM 5.4 mmol/L (3.5-5.1); TOTAL PROTEIN 6.6 g/dl (6.1-8.1)
[2017-04-09] MEDS ORDERED: NA POLYST SULFON 15 GM/60 ML BTL PO ONE (16:00)
--- NOTE | 2017-04-09 16:10 | OPR ---
DATE OF OPERATION: 04/09/2017 PREOPERATIVE DIAGNOSIS: End-stage renal disease, thrombosed left upper extremity arterial venous fistula. POSTOPERATIVE DIAGNOSIS: End-stage renal disease, thrombosed left upper extremity arterial venous fistula. PROCEDURE: 1. Open thrombectomy of left upper extremity arterial venous fistula, left brachial and radial arteries. 2. Left arm fistulogram with venoplasty of entire cephalic vein and arterial venous fistula. SURGEON: Alex Garza M.D. ESTIMATED BLOOD LOSS: 75 mL. COMPLICATIONS: None. SPECIMENS: Thrombus. PREOPERATIVE INDICATIONS: This is a 56-year-old gentleman with end-stage renal disease who was given dialysis via left upper extremity arterial venous fistula who presented with a thrombosed arterial venous fistula. He was seen at an outpatient office and was sent to the hospital for surgical intervention. The patient was told that he would receive an open surgical operation to try to save his fistula. The indications, risks, and benefits of the procedure, which included possible PermaCath were discussed with the patient who understood and agreed to proceed. PROCEDURE: The patient was properly identified, brought to the operating room and placed in the supine position. The patient's left upper extremity was prepped and draped in the usual sterile fashion. He was induced with MAC anesthesia as needed. He received preoperative antibiotics. An incision overlying the inflow portion of the fistula was created using a 15-blade scalpel. This was deepened through the subcutaneous tissues using electrocautery. Of note, local anesthesia was injected prior to incision. The fistula was identified, circumferentially dissected free and venotomy was created with an 11 blade scalpel, which was then extended using Benitez scissors. This was done in a transverse fashion. Kamran balloons sizes eventually 4 and 5 were sent to the proximal arm, both retrieved copious amounts of clot; however, there was still no mandaen of outflow and there were noted to be 2 very large pseudoaneursyms of the vein with large thrombus burden. There appeared to be a proximal occlusion to the Kamran balloon. Therefore, given this, a 6-Maori short sheath was then advanced and a floppy glidewire and an angled glide catheter were used to traverse multiple stenotic areas and the clotted fistula under fluoroscopy. There was a return of venous flow in the central veins at the subclavian vein. Pull back fistulogram demonstrated that the cephalic arch was occluded. Thus, the wire was readvanced and a 6 x 60 balloon was then used for venoplasty of this area and the entire fistula. There were multiple segments of the vein that were noted to have severely stenotic lesions. However, these did open fairly well with venoplasty. Eventually a 7mm balloon was used as well for venoplasty. There was improved outflow on fistulogram. Thus, attention was then turned towards restoring the inflow. A number 4 Kamran balloon was then passed through the venotomy towards the AV anastamosis. There was retrieval of copious amounts of clot; however, there was an obstructive lesion that prevented the balloon from going further. However, there was mandaen of weakly pulsatile flow. Thus, the venotomy was closed with a 6-0 running Prolene suture and the proximal fistula was accessed in a retrograde fashion with ultrasound guidance in the proximal arm. This was done after local anesthesia was injected into the skin and subcutaneous tissues. The ultrasound was used to guide access with a micropuncture needle and then a micropuncture wire was then advanced. This was upsized to a 4-Maori micropuncture sheath, which then allowed for an 0.035 floppy glidewire to pass through and exchange a 6-Maori short sheath. The wire and the catheter were then used to traverse 2 very stenotic lesions at the inflow vein and 1 near the arterial venous anastomosis. The catheter was then placed into the brachial artery; however, angiogram demonstrated that there was thrombus within the inflow portion of the vein into the AV anastomosis and in the area of the distal brachial artery/radial artery. Given this, decision was made to cut down on the AV anastomosis and the brachial artery; however, prior to doing this the plan was to at least to improve the luminal diameter of the stenotic lesions. Thus a 6 x 60 balloon was then readvanced to these areas and used for venoplasty. There was marked improvement of these segments of stenosis afterwards. Next, incision was extended down towards the anastomotic connection. The fistula was circumferentially dissected free along with the brachial artery. There was noted to be old Prolene sutures in the vein down in this area, noting that the patient had the site intervened on previously. There was noted marked scar tissue as well. The brachial artery was controlled proximally and distally to the reanastomosis. An 11 blade scalpel was used to create a venotomy close the AV anastamosis and there was immediate retrieval of copious thrombus. The venotomy was extended used Benitez scissors. A number 3 Kamran was then passed distally with retrieval of long segment of mixed age appearing clot. This allowed for mandaen of a great back flow. Kamran was passed until there was no retrieval of clot left. The Kamran was then passed through the proximal portion of the brachial artery as well. There was excellent inflow. The area was allowed to be flushed out given that there was a bulbus portion of the vein that was connected to the artery at the anastomosis. There was retrieval of clot from the proximal portion of the arm after the Kamran's were passed through once again. After mandaen of the inflow, the area was flushed and venotomy was closed again. This was done with a 6-0 Prolene running suture. There was good hemostasis afterwards. There was mandaen of a palpable brachial and radial pulse distally. There was good continuous flow into the AV fistula on doppler; however, there was only a weak thrill in the proximal arm. Fistulogram at the end demonstrated that there was still some clot; however, the fistula itself was patent and there was flow throughout. Given the extensive amount of interventions that was performed, a decision was made to stop the procedure here. There was no way to remove all the thrombus without doing a major revision of the fistula itself, which would not guarantee future functionality given diffuse venous stenotic lesions in the whole entire cephalic vein. Therefore, the incision was closed after hemostasis was obtained with the aide of thrombin soaked gelfoam. Of note, the venotomy for the fistulogram at the end was closed using a 6-0 Prolene suture. The subcutaneous tissues were closed using 3-0 Vicryl sutures. The skin was closed using Monocryl sutures. The retrograde access site was closed using a Monocryl pursestring and with manual compression. Steri-Strips and dry dressings were then placed. The patient tolerated the procedure fairly well without any immediate complications overall. He was transferred to recovery in good condition. Dictated By: Alex Garza M.D. /[email or web address]/[email or web address] /Document#: [id number] RUDY
--- NOTE | 2017-04-09 16:26 | RADRPT ---
PROCEDURE: Intraoperative imaging of the left upper extremity with fluoroscopy. CLINICAL INDICATION: Left upper extremity dialysis fistula malfunction. Intraoperative. TECHNIQUE: 19 series of images of the left upper extremity were obtained in the operating room wit h an image intensifier. No radiologist was in attendance. Fluoroscopy time is 930 seconds. COMPARISON: No prior study is available for comparison. FINDINGS: Images demonstrate contrast injected into the arterial and venous system of the left upper extremity . There is thrombus and stenosis of the cephalic vein which is the outflow vein. IMPRESSION: 1. Intraoperative imaging of the left upper extremity. RPTAT: QQ .Jose Escoto MD, Date Time Electronically viewed and signed by .Jose Escoto MD, on 04/09/2017 16:25 .R/
[2017-04-09] MEDS: TAMSULOSIN (SR) 0.4 MG CAP PO SCH ×2 (21:15→22:03)
[2017-04-10] VITALS (20 sets, daily range): BP systolic 108–212; BP diastolic 55–100; PULSE 60–89; RESP 17–18
[2017-04-10] MEDS ORDERED: LABETALOL HCL 20MG INJ IV PRN (01:00)
[2017-04-10] MEDS ORDERED: DIPHENHYDRAMINE 2.5 MG/ML 5ML CUP PO PRN (02:00)
[2017-04-10] MEDS: LABETALOL HCL 20MG INJ IV PRN ×2 (02:10→09:24)
[2017-04-10] MEDS: hydrALAzine 20 MG INJ IV PRN ×2 (06:25→20:06)
[2017-04-10 07:01] LABS: BASOPHIL # 0.1 10^3/ul (0.0-0.1); BASOPHILS % 0.9 % (0.0-2.0); EOSINOPHILS # 0.6 10^3/ul (0.0-0.5); EOSINOPHILS % 6.1 % (0.0-7.0); HEMATOCRIT 36.5 % (42.0-52.0); HEMOGLOBIN 11.7 g/dl (14.0-18.0); LYMPHOCYTES # 1.5 10^3/ul (0.8-2.9); LYMPHOCYTES % 14.1 % (15.0-51.0); MEAN CORPUSCULAR HEMOGLOBIN 31.5 pg (29.0-33.0); MEAN CORPUSCULAR HGB CONC 32.1 g/dl (32.0-37.0); MEAN CORPUSCULAR VOLUME 98.4 fl (82.0-101.0); MEAN PLATELET VOLUME 10.4 fl (7.4-10.4); MONOCYTE # 1.2 10^3/ul (0.3-0.9); MONOCYTES % 11.9 % (0.0-11.0); NEUTROPHIL # 6.9 10^3/ul (1.6-7.5); NEUTROPHILS % 66.6 % (39.0-77.0); PLATELET COUNT 135 10^3/UL (140-415); RED BLOOD COUNT 3.71 10^6/ul (4.70-6.10); RED CELL DISTRIBUTION WIDTH 15.6 % (11.5-14.5); WHITE BLOOD COUNT 10.4 10^3/ul (4.8-10.8)
--- NOTE | 2017-04-10 07:08 | PN ---
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 Ramachandran He should follow up w/ Vascular surgery (Dr Miramontes [phone]) in 1-2 weeks Thank you and please Problems: Subjective 24 Hr Interval Summary Unsuccessful attempt at HD yesterday Exam/Review of Systems Vital Signs Vitals Vital Signs Date Time Temp Pulse Resp B/P Pulse Ox O2 Delivery O2 Flow Rate FiO2 04/10/17 08:22 98.3 76 17 190/91 99 04/09/17 13:18 Nasal Cannula 2.0 Intake and Output 04/09/17 04/09/17 04/10/17 15:00 23:00 07:00 Intake Total 225 ml 600 ml Output Total 75 ml 50 ml Balance 150 ml 550 ml Exam Free Text/Dictation Gen: AAOx3, NAD Extr: LUE incision c/d/i; only pulsatile flow noted, no thrill, palpable radial pulse Results Result Diagram: 04/10/17 0601 04/10/17 0601 THONY MIRAMONTES MD Apr 10, 2017 07:08
[2017-04-10 07:38] LABS: CALCIUM 8.9 mg/dl (8.4-10.2); POTASSIUM 4.8 mmol/L (3.5-5.1)
[2017-04-10 07:46] LABS: CREATININE 15.16 mg/dl (0.61-1.24)
[2017-04-10] MEDS: SEVELAMER CARBONATE 0.8 GM PKT PO SCH ×3 (07:55→18:08)
[2017-04-10 08:16] LABS: PHOSPHORUS 10.9 mg/dl (2.5-4.9)
[2017-04-10] MEDS ORDERED: INFLUENZA VIRUS VACCINE 0.5 ML SYG IM* ONE (09:00)
[2017-04-10] MEDS: METOPROLOL 50 MG TAB PO SCH ×2 (09:00→20:07)
[2017-04-10] MEDS ORDERED: LIDOCAINE 1% (MDV) 20 ML INJ ONE (09:32)
[2017-04-10] MEDS ORDERED: HEPARIN 1000 UNITS/ML 10 ML INJ ONE (09:32)
[2017-04-10] MEDS ORDERED: IODIXANOL LOCM 100 ML BTL ONE (09:32)
[2017-04-10] MEDS ORDERED: HEPARIN 1000 UNITS/NS (A-LINE) 1,000 ML ONE (09:32)
--- NOTE | 2017-04-10 11:27 | SIPON ---
Date/Time of Note Date/Time of Note DATE: 04/10/17 TIME: 11:26 Operative Report Preoperative Diagnosis ESRD, dysfunctional LUE AVF Postoperative Diagnosis Same Operation/Procedure Performed Placement of R IJ tunneled dialysis catheter with ultrasound and fluoroscopy Surgeon Thony Miramontes MD rehab care assistant N/A Anesthesia: other (Local) Estimated blood loss: minimal Transfusion Required none Specimen None Grafts/Implants none Complications none THONY MIRAMONTES MD Apr 10, 2017 11:27
--- NOTE | 2017-04-10 12:40 | PN ---
Date/Time of Note Date/Time of Note DATE: 04/10/17 TIME: 12:34 Assessment/Plan VTE Prophylaxis VTE Prophylaxis Intervention: SCD's Lines/Catheters IV Catheter Type (from Nrs): Saline Lock Urinary Cath still in place: No Assessment/Plan Assessment/Plan 56-year-old male with: 1. Left upper extremity thrombosed fistula, status post attempted declotting yesterday AM by Dr. Garza from vascular surgery, but still not able to dialyze through fistula last night S/p Permcath placement this AM by Dr Garza and patient on HD currently. 2. End-stage renal disease secondary to hypertensive nephropathy, last successful dialysis fistula was this past Tuesday, Finally has functional access for HD and getting dialyzed this AM Follow up nephro recs today, ? HD tomorrow also and d/c plan after HD tomorrow if being done, then to resume Tuesday/Tuesday/Tuesday schedule 3. Hypertension: Resumed home medications, hydralazine as needed. 4. GERD: Continue Zantac 5. BPH: Continue Flomax Prophylaxis: Zantac, Pepcid for GI prophylaxis, heparin subcu for DVT prophylaxis Disposition: S/p PermCath this AM and HD currently, d/c plan tomorrow hopefully after HD. Subjective 24 Hr Interval Summary Free Text/Dictation Fistula still not viable/functional S/p PermCath placement this AM and HD currently No complaints from patient this AM Exam/Review of Systems Vital Signs Vitals Vital Signs Date Time Temp Pulse Resp B/P Pulse Ox O2 Delivery O2 Flow Rate FiO2 04/10/17 12:00 70 04/10/17 08:22 98.3 17 190/91 99 04/09/17 13:18 Nasal Cannula 2.0 Intake and Output 04/09/17 04/09/17 04/10/17 15:00 23:00 07:00 Intake Total 225 ml 600 ml Output Total 75 ml 50 ml Balance 150 ml 550 ml Exam Constitutional: alert, oriented, well developed Respiratory: clear to auscultation, normal air movement, other (RU chest wall new PermCath ) Cardiovascular: nl pulses, regular rate and rhythm Gastrointestinal: non-tender, soft Musculoskeletal: nl extremities to inspection, nl gait and stance Neurological: MEDIATION COMMISSIONER II-XII intact, nl mental status, nl speech, nl strength Results Result Diagram: 04/10/1760004/10/17 06 Results 24 hrs Laboratory Tests Test 04/09/17 14:30 04/10/17 06:01 White Blood Count 11.7 H 10.4 Red Blood Count 3.92 L 3.71 L Hemoglobin 12.3 L 11.7 L Hematocrit 39.5 L 36.5 L Mean Corpuscular Volume 100.8 98.4 Mean Corpuscular Hemoglobin 31.4 31.5 Mean Corpuscular Hemoglobin Concent 31.1 L 32.1 Red Cell Distribution Width 15.9 H 15.6 H Platelet Count 126 L 135 L Mean Platelet Volume 10.0 10.4 Neutrophils % 67.1 66.6 Lymphocytes % 15.6 14.1 L Monocytes % 11.3 H 11.9 H Eosinophils % 5.0 6.1 Basophils % 0.7 0.9 Nucleated Red Blood Cells % 0.0 0.0 Neutrophils # 7.9 H 6.9 Lymphocytes # 1.8 1.5 Monocytes # 1.3 H 1.2 H Eosinophils # 0.6 H 0.6 H Basophils # 0.1 0.1 Nucleated Red Blood Cells # 0.0 0.0 Sodium Level 143 144 Potassium Level 5.4 H 4.8 Chloride Level 106 105 Carbon Dioxide Level 21 21 Anion Gap 21 H 23 H Blood Urea Nitrogen 69 H 77 H Creatinine 13.66 H 15.16 H Glucose Level 79 104 Hemoglobin A1c 4.9 Calcium Level 8.8 8.9 Phosphorus Level 9.7 H 10.9 H Magnesium Level 2.0 2.0 Total Bilirubin 0.0 L Direct Bilirubin 0.00 Indirect Bilirubin 0.0 Aspartate Amino Transf (AST/SGOT) 19 Alanine Aminotransferase (ALT/SGPT) 27 Alkaline Phosphatase 81 Total Protein 6.6 Albumin 3.7 Globulin 2.90 Albumin/Globulin Ratio 1.27 Medications Medications Current Medications Acetaminophen (Tylenol Tab) 650 mg Q6H PRN PO PAIN AND OR ELEVATED TEMP; Start 04/09/17 at 05:00 Ondansetron HCl (Zofran Inj) 4 mg Q6H PRN IV NAUSEA AND/OR VOMITING; Start at 05:00 Hydralazine HCl (Apresoline) 10 mg Q4H PRN IV ELEVATED BLOOD PRESSURE Last administered on 04/10/17t 06:25; Admin Dose 10 MG; Start 04/09/17 at 05:00 Amlodipine Besylate (Norvasc) 10 mg DAILY PO Last administered on 04/09/17 14: 35; Admin Dose 10 MG; Start 04/09/17 at 09:00 Gabapentin (Neurontin) 300 mg DAILY PO Last administered on 04/09/17 14:33; Admin Dose 300 MG; Start 04/09/17 at 09:00 Metoprolol Tartrate (Lopressor) 50 mg BID PO Last administered on 04/09/17 22: 10; Admin Dose 50 MG; Start 04/09/17 at 09:00 Ranitidine HCl (Zantac) 150 mg DAILY PO Last administered on 04/09/17 14:33; Admin Dose 150 MG; Start 04/09/17 at 09:00 Tamsulosin HCl (Flomax) 0.4 mg HS PO Last administered on 04/09/17 22:03; Admin Dose 0.4 MG; Start 04/09/17 at 21:00 Morphine Sulfate (morphine) 2 mg Q4H PRN IV MODERATE PAIN LEVEL 4-6; Start at 14:30 Morphine Sulfate (morphine) 4 mg Q4H PRN IV SEVERE PAIN LEVEL 7-10 Last administered on 04/09/17 18:23; Admin Dose 4 MG; Start 04/09/17 at 14:30 Hydralazine HCl (Apresoline) 75 mg TID PO ; Start 04/10/17 at 09:00 Clonidine (Catapres) 0.2 mg Q8 PO Last administered on 04/10/17 06:25; Admin Dose 0.2 MG; Start 04/10/17 at 01:00 Labetalol HCl (Labetalol) 20 mg Q4 PRN IV ELEVATED BLOOD PRESSURE Last administered on 04/10/17 09:24; Admin Dose 20 MG; Start 04/10/17 at 02:00 Diphenhydramine HCl (Benadryl Liquid Cup) 12.5 mg Q8 PRN PO ITCHING Last administered on 04/10/17 02:07; Admin Dose 12.5 MG; Start 04/10/17 at 02:00 MARICRUZ MURRAY Apr 10, 2017 12:40
--- NOTE | 2017-04-10 13:50 | OPR ---
DATE OF OPERATION: 04/10/2017 PREOPERATIVE DIAGNOSIS: End-stage renal disease, dysfunctional left upper extremity arteriovenous fistula. POSTOPERATIVE DIAGNOSIS: End-stage renal disease, dysfunctional left upper extremity arteriovenous fistula. OPERATION PERFORMED: Placement of right internal jugular vein tunneled dialysis catheter with ultrasound and fluoroscopy. SURGEON: Alex Garza M.D. ANESTHESIA: Local. ESTIMATED BLOOD LOSS: Minimal. COMPLICATIONS: None. PREOPERATIVE INDICATIONS: This is a 56-year-old gentleman with end-stage renal disease on dialysis who underwent open surgical thrombectomy and fistulogram and venoplasty of a thrombosed left arm AV fistula. However, attempts at dialysis postop was unsuccessful. Therefore, the patient now needs AV access for dialysis. The plan is to place a right internal jugular vein tunneled dialysis catheter. The indications, risks, and benefits of the procedure were discussed with the patient, who understood and agreed to proceed. OPERATIVE PROCEDURE: The patient was properly identified, brought to the angiography suite and placed in the supine position. The patient's right neck and chest were prepped and draped in the usual sterile fashion. The right internal jugular vein was evaluated using ultrasound. It was noted to be widely patent, although it was mildly scarred at the proximal aspect. Local anesthesia was injected into the skin and subcutaneous tissues overlying the vein. Using a micropuncture needle, ultrasound was used to guide the needle entry into the vein. With return of venous blood, the micropuncture wire was then advanced into the SVC under fluoroscopy. A micropuncture sheath was then placed. An Amplatz stiff wire was then advanced through the micropuncture sheath and into the inferior vena cava under fluoroscopy. A skin yumiko was created at the access site. This was done using 11 blade scalpel. Sequential dilation of the access site and tract and the vein was then performed and eventually a peel-away sheath was placed. Next, an appropriate site was chosen for the catheter exit site in the right chest. Local anesthesia was injected into the skin and subcutaneous tissue for the planned tunnel. A 11 blade scalpel used to create the exit site incision. A rigid trocar was used to tunnel the pre-flushed 14.5-Tajik by 19 cm cuffed dialysis catheter through the subcutaneous tunnel and to the neck site. The wire and the dilator with the peel-away sheath were then removed and the catheter was then introduced into the peel-away sheath. The peel- away sheath was then peeled away. The final position of the catheter tip was within the top of the right atrium. Both ports were then flushed and esteban back easily with saline. They were locked with concentrated heparin at 1000 units/mL at the appropriate volumes. Caps were then placed. The catheter was then secured to the chest using nylon sutures. The skin at the neck access site was closed using 4-0 Monocryl. A Biopatch was placed at the catheter and dry dressings and occlusive dressings were placed at both sites. The patient tolerated procedure well and was transferred to recovery in good condition. Dictated By: Alex Garza M.D. /tahmina/cecile /Document#: [id number] RUDY
[2017-04-10] MEDS: RANITIDINE 150 MG TAB PO SCH (18:08)
[2017-04-10] MEDS: AMLODIPINE 10 MG TAB PO SCH (18:10)
[2017-04-10] MEDS: GABAPENTIN 300 MG CAP PO SCH (18:12)
[2017-04-10] MEDS: TAMSULOSIN (SR) 0.4 MG CAP PO SCH (20:07)
[2017-04-11] VITALS (10 sets, daily range): BP systolic 111–158; BP diastolic 63–76; PULSE 54–85; RESP 18–19
[2017-04-11 07:24] LABS: ABNORMAL IP MESSAGE 1; HEMATOCRIT 33.5 % (42.0-52.0); HEMOGLOBIN 10.6 g/dl (14.0-18.0); MEAN CORPUSCULAR HGB CONC 31.6 g/dl (32.0-37.0); MEAN PLATELET VOLUME 10.7 fl (7.4-10.4); PLATELET COUNT 96 10^3/UL (140-415); POSITIVE DIFF @See below; RED BLOOD COUNT 3.42 10^6/ul (4.70-6.10); RED CELL DISTRIBUTION WIDTH 15.4 % (11.5-14.5); WHITE BLOOD COUNT 9.4 10^3/ul (4.8-10.8)
[2017-04-11 07:52] LABS: MAGNESIUM 1.9 mg/dl (1.7-2.5); PHOSPHORUS 8.2 mg/dl (2.5-4.9)
[2017-04-11 07:58] LABS: CALCIUM 9.2 mg/dl (8.4-10.2); CREATININE 11.29 mg/dl (0.61-1.24); POTASSIUM 4.3 mmol/L (3.5-5.1)
[2017-04-11] MEDS: GABAPENTIN 300 MG CAP PO SCH (08:41)
[2017-04-11] MEDS: AMLODIPINE 10 MG TAB PO SCH (08:41)
[2017-04-11] MEDS: RANITIDINE 150 MG TAB PO SCH (08:41)
[2017-04-11] MEDS: METOPROLOL 50 MG TAB PO SCH (08:42)
[2017-04-11 08:47] LABS: ANISOCYTOSIS 1+ (0-0); EOSINOPHILS % (M) 3 % (0-7); MONOCYTES % (M) 8 % (0-11); MYELOCYTES % (M) 1 % (0-0); PLATELET ESTIMATE DECREASED; REACTIVE LYMPHOCYTES% (M) 3 % (0-0)
[2017-04-11] MEDS: SEVELAMER CARBONATE 0.8 GM PKT PO SCH ×3 (08:47→18:28)
--- NOTE | 2017-04-11 15:32 | PN ---
Date/Time of Note Date/Time of Note DATE: 04/11/17 TIME: 15:21 Assessment/Plan VTE Prophylaxis VTE Prophylaxis Intervention: ambulation, SCD's Lines/Catheters IV Catheter Type (from Nrs): Permacath Urinary Cath still in place: No Assessment/Plan Assessment/Plan 56-year-old male with: 1. Left upper extremity thrombosed fistula, status post attempted declotting yesterday AM by Dr. Garza from vascular surgery, but still not able to dialyze through fistula last night S/p Permcath placement yesterday and HD yesterday ' F/u with vascular surgery outpatient as needed . 2. End-stage renal disease secondary to hypertensive nephropathy, last successful dialysis fistula was this past Tuesday, Finally has functional access for HD and s/p HD yesterday Per Nephrology Dr Leblanc, no HD today and OK to discharge home and nest HD Tuesday as outpatient D/c home today and resume Tuesday/Tuesday/Tuesday schedule 3. Hypertension: Resumed home medications, hydralazine as needed. 4. GERD: Continue Zantac 5. BPH: Continue Flomax Prophylaxis: Zantac, Pepcid for GI prophylaxis, heparin subcu for DVT prophylaxis Disposition: D/c home today and f/u with PCP and Nephrology. Next HD Tuesday. Subjective 24 Hr Interval Summary Free Text/Dictation Patient got dialyzed successfully through his permacath yesterday, he is doing well this morning, laboratory data are stable, according to Dr. Leblanc he will not be dialyzed today, his next dialysis is as scheduled this coming Tuesday as outpatient, patient will be discharged home today. Exam/Review of Systems Vital Signs Vitals Vital Signs Date Time Temp Pulse Resp B/P Pulse Ox O2 Delivery O2 Flow Rate FiO2 04/11/17 12:14 54 04/11/17 11:36 97.9 18 126/68 98 04/09/17 13:18 Nasal Cannula 2.0 Intake and Output 04/10/17 04/10/17 04/11/17 15:00 23:00 07:00 Intake Total 1150 ml 250 ml Output Total 5500 ml Balance -4350 ml 250 ml Exam Constitutional: alert, oriented, well developed Respiratory: clear to auscultation, normal air movement, other (Right upper chest PermCath in place ) Cardiovascular: nl pulses, regular rate and rhythm Gastrointestinal: non-tender, soft Musculoskeletal: nl extremities to inspection, nl gait and stance Extremities: normal pulses Neurological: FISH ICER II-XII intact, nl mental status, nl speech, nl strength Results Result Diagram: 04/11/17 0636 04/11/17 0636 Results 24 hrs Laboratory Tests Test 04/11/17 06:36 White Blood Count 9.4 Red Blood Count 3.42 L Hemoglobin 10.6 L Hematocrit 33.5 L Mean Corpuscular Volume 98.0 Mean Corpuscular Hemoglobin 31.0 Mean Corpuscular Hemoglobin Concent 31.6 L Red Cell Distribution Width 15.4 H Platelet Count 96 #L Mean Platelet Volume 10.7 H Neutrophils % Segmented Neutrophils % (Manual) 79 H Lymphocytes % Lymphocytes % (Manual) 6 L Reactive Lymphocytes % (Manual) 3 H Monocytes % Monocytes % (Manual) 8 Eosinophils % Eosinophils % (Manual) 3 Basophils % Myelocytes % (Manual) 1 H Nucleated Red Blood Cells % 0.0 Neutrophils # Absolute Lymphocytes (Manual) 0.5 L Lymphocytes # Reactive Lymphocytes # 0.2 H Monocytes # Absolute Monocytes (Manual) 0.7 Eosinophils # Basophils # Myelocytes # 0.0 Nucleated Red Blood Cells # Platelet Estimate DECREASED Anisocytosis 1+ Sodium Level 137 Potassium Level 4.3 Chloride Level 99 Carbon Dioxide Level 27 Anion Gap 15 # Blood Urea Nitrogen 53 H Creatinine 11.29 #H Glucose Level 123 Calcium Level 9.2 Phosphorus Level 8.2 #H Magnesium Level 1.9 Medications Medications Current Medications Acetaminophen (Tylenol Tab) 650 mg Q6H PRN PO PAIN AND OR ELEVATED TEMP Last administered on 04/10/17 20:07; Admin Dose 650 MG; Start 04/09/17 at 05:00 Ondansetron HCl (Zofran Inj) 4 mg Q6H PRN IV NAUSEA AND/OR VOMITING; Start at 05:00 Hydralazine HCl (Apresoline) 10 mg Q4H PRN IV ELEVATED BLOOD PRESSURE Last administered on 04/10/17 20:06; Admin Dose 10 MG; Start 04/09/17 at 05:00 Amlodipine Besylate (Norvasc) 10 mg DAILY PO Last administered on 04/11/17 08: 41; Admin Dose 10 MG; Start 04/09/17 at 09:00 Gabapentin (Neurontin) 300 mg DAILY PO Last administered on 04/11/17 08:41; Admin Dose 300 MG; Start 04/09/17 at 09:00 Metoprolol Tartrate (Lopressor) 50 mg BID PO Last administered on 04/11/17 08: 42; Admin Dose 50 MG; Start 04/09/17 at 09:00 Ranitidine HCl (Zantac) 150 mg DAILY PO Last administered on 04/11/17 08:41; Admin Dose 150 MG; Start 04/09/17 at 09:00 Tamsulosin HCl (Flomax) 0.4 mg HS PO Last administered on 04/10/17 20:07; Admin Dose 0.4 MG; Start 04/09/17 at 21:00 Morphine Sulfate (morphine) 2 mg Q4H PRN IV MODERATE PAIN LEVEL 4-6; Start at 14:30 Morphine Sulfate (morphine) 4 mg Q4H PRN IV SEVERE PAIN LEVEL 7-10 Last administered on 04/09/17 18:23; Admin Dose 4 MG; Start 04/09/17 at 14:30 Hydralazine HCl (Apresoline) 75 mg TID PO Last administered on 04/11/17 12:03 ; Admin Dose 75 MG; Start 04/10/17 at 09:00 Clonidine (Catapres) 0.2 mg Q8 PO Last administered on 04/11/17 05:47; Admin Dose 0.2 MG; Start 04/10/17 at 01:00 Labetalol HCl (Labetalol) 20 mg Q4 PRN IV ELEVATED BLOOD PRESSURE Last administered on 04/10/17 09:24; Admin Dose 20 MG; Start 04/10/17 at 02:00 Diphenhydramine HCl (Benadryl Liquid Cup) 12.5 mg Q8 PRN PO ITCHING Last administered on 04/10/17 02:07; Admin Dose 12.5 MG; Start 04/10/17 at 02:00 MARICRUZ MURRAY Apr 11, 2017 15:32
--- NOTE | 2017-04-11 15:33 | PDOCDIS ---
Discharge Instructions CONDITION Patient Condition: Good HOME CARE INSTRUCTIONS: Special Diet: Renal ACTIVITY: Activity Restrictions: No Restrictions FOLLOW UP/APPOINTMENTS Follow-up Plan Follow-up with vascular surgery as needed outpatient. Follow-up with primary care physician within 1 week Follow-up with nephrology within 1-2 weeks Resume outpatient dialysis schedule this coming Tuesday the next dialysis (on //) MARICRUZ MURRAY Apr 11, 2017 15:33
== END 2017-04-11 18:48 | disposition home or self-care (01) | DRG 252 ==
LOC: E/R 22:27 → TEL 04-09 02:16
PROVIDERS: ADMIT Internal Medicine; ATTEND Internal Medicine
PROC: 03CC0ZZ Extirpation of Matter from Left Radial Artery, Open Approach (ICD-10-PCS; 2017-04-09)
PROC: 057F0ZZ Dilation of Left Cephalic Vein, Open Approach (ICD-10-PCS; 2017-04-09)
PROC: 03C80ZZ Extirpation of Matter from Left Brachial Artery, Open Approach (ICD-10-PCS; principal; 2017-04-09 08:00)
PROC: 02H633Z Insertion of Infusion Device into Right Atrium, Percutaneous Approach (ICD-10-PCS; 2017-04-10)
PROC: B214YZZ Fluoroscopy of Right Heart using Other Contrast (ICD-10-PCS; 2017-04-10)
PROC: B244ZZZ Ultrasonography of Right Heart (ICD-10-PCS; 2017-04-10)
PROC: 5A1D70Z Performance of Urinary Filtration, Intermittent, Less than 6 Hours Per Day (ICD-10-PCS; 2017-04-10)
DX: T82.868A Thrombosis due to vascular prosthetic devices, implants and grafts, initial encounter (principal); N18.6 End stage renal disease; I12.0 Hypertensive chronic kidney disease with stage 5 chronic kidney disease or end stage renal disease; Q61.3 Polycystic kidney, unspecified; K21.9 Gastro-esophageal reflux disease without esophagitis; N40.0 Benign prostatic hyperplasia without lower urinary tract symptoms; Z87.891 Personal history of nicotine dependence; Y83.2 Surgical operation with anastomosis, bypass or graft as the cause of abnormal reaction of the patient, or of later complication, without mention of misadventure at the time of the procedure; Z99.2 Dependence on renal dialysis
CPT/HCPCS: 36415; 71010; 80048; 80053; 83036; 83735; 84100; 84484; 85025; 85610; 85730; 88304; 90686; 90935; 93005; 93931; 96372; 96374; 96375; C1725; J0360; J0690; J1644; J2250; J2270; J2765; J3010; J7040; Q9967

== ENCOUNTER 2017-05-06 07:19 | Day surgery (SDC) | payer MEDICARE, OTHER ==
[~2017-05-06] VITALS: Ht 160 cm; Wt 68.0 kg
[2017-05-06] MEDS ORDERED: SIMV20TA PO (08:01)
[2017-05-06 08:34] VITALS: BP 184/90; PULSE 52; RESP 16; Ht 160 cm; Wt 68.0 kg
[2017-05-06 09:43] VITALS: BP 181/86; PULSE 60; RESP 18
[2017-05-06] MEDS ORDERED: HEPARIN 1000 UNITS/NS (A-LINE) 1,000 ML ONE (09:44)
[2017-05-06] MEDS ORDERED: LIDOCAINE 1% (MDV) 20 ML INJ ONE (09:44)
[2017-05-06] MEDS ORDERED: HEPARIN 1000 UNITS/ML 10 ML INJ ONE (09:44)
--- NOTE | 2017-05-06 09:53 | SIPON ---
Date/Time of Note Date/Time of Note DATE: 05/06/17 TIME: 09:52 Operative Report Preoperative Diagnosis broken permacath Postoperative Diagnosis same Operation/Procedure Performed Permacath exchange Surgeon see signature line curriculum assistant principal none Anesthesia: other Estimated blood loss: none Transfusion Required none Specimen 19 cm permacath Grafts/Implants none Complications none JESS MCKEON MD May 06, 2017 09:53
--- NOTE | 2017-05-06 09:53 | SIPON ---
Date/Time of Note Date/Time of Note DATE: 05/06/17 TIME: 09:52 Operative Report Preoperative Diagnosis broken permacath Postoperative Diagnosis same Operation/Procedure Performed Permacath exchange Surgeon see signature line psychological assistant none Anesthesia: other Estimated blood loss: none Transfusion Required none Specimen 19 cm permacath Grafts/Implants none Complications none JESS MCKEON MD May 06, 2017 09:53
--- NOTE | 2017-05-06 09:53 | SIPON ---
Date/Time of Note Date/Time of Note DATE: 05/06/17 TIME: 09:52 Operative Report Preoperative Diagnosis broken permacath Postoperative Diagnosis same Operation/Procedure Performed Permacath exchange Surgeon see signature line anesthesiology physician assistant none Anesthesia: other Estimated blood loss: none Transfusion Required none Specimen 19 cm permacath Grafts/Implants none Complications none JESS MCKEON MD May 06, 2017 09:53
--- NOTE | 2017-05-06 11:03 | OPR ---
DATE OF OPERATION: 05/06/2017 PREOPERATIVE DIAGNOSIS: Broken right internal jugular vein Perm-A-Cath. POSTOPERATIVE DIAGNOSIS: Broken right internal jugular vein Perm-A-Cath. PROCEDURE PERFORMED: PermCath exchange under fluoroscopic guidance. SURGEON: Jess Nelson MD ANESTHESIA: Local anesthesia. ESTIMATED BLOOD LOSS: Minimal. COMPLICATIONS: No intraprocedural complications. INDICATIONS: This is a 56-year-old diabetic hypertensive gentleman with endstage renal disease on d ialysis for several years. He has a failed left upper arm AV graft. He had a right IJ Perm-A-Cath placed several weeks ago and the graft failed and could not be reopened. The Perm-A-Cath was workin g fine but somehow one of the ports cracked so it cannot be connected to the dialysis machine. Ther e is not a good seal so I brought him in today for Perm-A-Cath exchange. DESCRIPTION OF PROCEDURE: The patient was brought to the confectionery laboratory manager and placed on the table in supine position. The right chest wall and Perm-A-Cath ports were prepped and draped in the usual sterile fashion. I began by freeing up the cuff. I injected about 10 mL of 1% Xylocaine right around the i nsertion site and then freed up the cuff using blunt and sharp dissection. I then advanced an Ampla tz wire through the catheter and down into the inferior vena cava, removed the catheter and then jeanne erma a second 19 cm Perm-A-Cath over the wire, leaving the tip in the right atrium and the cuff in th e tract. I then flushed it. It flushed easily. There was good backflow from each port with 2 mL o f heparin in each port, anchored to the skin using 2-0 Vicryl suture. Sterile dressing was applied and the patient was then transferred to same day and he is going to be discharged home and go [facility] to dialysis. Dictated By: JESS NARVAEZ/EDDIE Conf#: [id number] DID#: [id number] CC: ROBERTO PRADHAN MD;*EndCC*
--- NOTE | 2017-05-06 11:03 | OPR ---
DATE OF OPERATION: 05/06/2017 PREOPERATIVE DIAGNOSIS: Broken right internal jugular vein Perm-A-Cath. POSTOPERATIVE DIAGNOSIS: Broken right internal jugular vein Perm-A-Cath. PROCEDURE PERFORMED: PermCath exchange under fluoroscopic guidance. SURGEON: Jess Nelson MD ANESTHESIA: Local anesthesia. ESTIMATED BLOOD LOSS: Minimal. COMPLICATIONS: No intraprocedural complications. INDICATIONS: This is a 56-year-old diabetic hypertensive gentleman with endstage renal disease on d ialysis for several years. He has a failed left upper arm AV graft. He had a right IJ Perm-A-Cath placed several weeks ago and the graft failed and could not be reopened. The Perm-A-Cath was workin g fine but somehow one of the ports cracked so it cannot be connected to the dialysis machine. Ther e is not a good seal so I brought him in today for Perm-A-Cath exchange. DESCRIPTION OF PROCEDURE: The patient was brought to the microbiology lab analyst and placed on the table in supine position. The right chest wall and Perm-A-Cath ports were prepped and draped in the usual sterile fashion. I began by freeing up the cuff. I injected about 10 mL of 1% Xylocaine right around the i nsertion site and then freed up the cuff using blunt and sharp dissection. I then advanced an Ampla tz wire through the catheter and down into the inferior vena cava, removed the catheter and then jeanne erma a second 19 cm Perm-A-Cath over the wire, leaving the tip in the right atrium and the cuff in th e tract. I then flushed it. It flushed easily. There was good backflow from each port with 2 mL o f heparin in each port, anchored to the skin using 2-0 Vicryl suture. Sterile dressing was applied and the patient was then transferred to same day and he is going to be discharged home and go [facility] [place]. Dictated By: JESS NARVAEZ/EDDIE Conf#: [id number] DID#: [id number] CC: ROBERTO PRADHAN MD;*EndCC*
--- NOTE | 2017-05-06 11:03 | OPR ---
DATE OF OPERATION: 05/06/2017 PREOPERATIVE DIAGNOSIS: Broken right internal jugular vein Perm-A-Cath. POSTOPERATIVE DIAGNOSIS: Broken right internal jugular vein Perm-A-Cath. PROCEDURE PERFORMED: PermCath exchange under fluoroscopic guidance. SURGEON: Jess Nelson MD ANESTHESIA: Local anesthesia. ESTIMATED BLOOD LOSS: Minimal. COMPLICATIONS: No intraprocedural complications. INDICATIONS: This is a 56-year-old diabetic hypertensive gentleman with endstage renal disease on d ialysis for several years. He has a failed left upper arm AV graft. He had a right IJ Perm-A-Cath placed several weeks ago and the graft failed and could not be reopened. The Perm-A-Cath was workin g fine but somehow one of the ports cracked so it cannot be connected to the dialysis machine. Ther e is not a good seal so I brought him in today for Perm-A-Cath exchange. DESCRIPTION OF PROCEDURE: The patient was brought to the mini lab operator and placed on the table in supine position. The right chest wall and Perm-A-Cath ports were prepped and draped in the usual sterile fashion. I began by freeing up the cuff. I injected about 10 mL of 1% Xylocaine right around the i nsertion site and then freed up the cuff using blunt and sharp dissection. I then advanced an Ampla tz wire through the catheter and down into the inferior vena cava, removed the catheter and then jeanne erma a second 19 cm Perm-A-Cath over the wire, leaving the tip in the right atrium and the cuff in th e tract. I then flushed it. It flushed easily. There was good backflow from each port with 2 mL o f heparin in each port, anchored to the skin using 2-0 Vicryl suture. Sterile dressing was applied and the patient was then transferred to same day and he is going to be discharged home and go [facility] to dialysis. Dictated By: JESS NARVAEZ/EDDIE Conf#: [id number] DID#: [id number] CC: ROBERTO PRADHAN MD;*EndCC*
== END 2017-05-06 10:15 | disposition home or self-care (01) ==
LOC: SDS 07:19
PROVIDERS: ATTEND Surgery Vascular Surgery
DX: T82.898A Other specified complication of vascular prosthetic devices, implants and grafts, initial encounter (principal); Y84.1 Kidney dialysis as the cause of abnormal reaction of the patient, or of later complication, without mention of misadventure at the time of the procedure; Y92.89 Other specified places as the place of occurrence of the external cause; I12.0 Hypertensive chronic kidney disease with stage 5 chronic kidney disease or end stage renal disease; N18.6 End stage renal disease
CPT/HCPCS: 36582; 84132; J1644

== ENCOUNTER 2017-05-19 09:46 | Emergency (ER) | payer MEDICARE, BC, OTHER ==
[~2017-05-19] VITALS: Wt 68.3 kg
[~2017-05-19 09:46] MED LIST changes: -RANI150T5 PO; +SIMV20TA PO
--- NOTE | 2017-05-19 11:13 | ERD ---
ER Documentation Chief Complaint Chief Complaint abd pain, "dysentry" HPI Patient is a 56-year-old male who presents with gradual onset, intermittent, mucoid, nonbloody, liquid brown stool for more than 1 week. He has been to see his primary care physician, but is not sure what tests have been done. He denies vomiting, dark stool. He reports having suprapubic pain at the time of defecation only. He reports having one episode of subjective fevers, but has not measured his temperature. The patient is on dialysis and had last dialysis yesterday. ROS All systems reviewed and are negative except as per history of present illness. Medications Home Meds Active Scripts Metoprolol Tartrate* (Lopressor*) 50 Mg Tab, 50 MG PO BID for 30 Days, #60 TAB 0 Refills Prov:REENA CLAUDIO MD 02/27/17 Reported Medications Simvastatin* (Zocor*) 20 Mg Tablet, 20 MG PO QHS, #30 TAB 05/06/17 Tamsulosin Hcl* (Tamsulosin Hcl*) 0.4 Mg Cap.er.24h, 0.4 MG PO HS, CAP 02/26/17 Sevelamer Carbonate* (Renvela*) 800 Mg Tablet, 2.4 GM PO WITH MEALS, TAB 01/03/17 Gabapentin* (Gabapentin*) 300 Mg Capsule, 300 MG PO DAILY, #30 CAP 01/03/17 Amlodipine Besylate* (Amlodipine Besylate*) 10 Mg Tablet, 10 MG PO DAILY, #30 TAB 01/03/17 Allergies Allergies: Coded Allergies: No Known Allergy (Unverified , 02/26/17) PMhx/Soc Past medical history: Hypertension, end-stage renal disease Past surgical history: Dialysis catheter Social history: Denies tobacco or alcohol History of Surgery: Yes (AV SHUNT L ARM) Anesthesia Reaction: No Hx Neurological Disorder: No Hx Respiratory Disorders: No Hx Cardiac Disorders: Yes (HTN) Hx Psychiatric Problems: Yes Hx Miscellaneous Medical Probl: No Hx Alcohol Use: No Hx Substance Use: No Hx Tobacco Use: Yes (1 YEAR AGO) FmHx Family History: No coronary disease, No diabetes Physical Exam Vitals Vital Signs Date Time Temp Pulse Resp B/P Pulse Ox O2 Delivery O2 Flow Rate FiO2 05/19/17 13:42 76 20 154/73 99 Room Air 05/19/17 09:49 98.6 80 20 172/77 99 Physical Exam Const: Alert, no acute distress Head: Atraumatic Eyes: Normal Conjunctiva, No pallor, no icterus ENT: Normal External Ears, Nose and Mouth. Mucous membranes moist Neck: Full range of motion..~ No meningismus. Resp: Clear to auscultation bilaterally Cardio: Regular rate and rhythm, no murmurs Abd: Soft, non tender, non distended. Skin: No petechiae or rashes Back: No midline or flank tenderness Ext: No cyanosis, or edema Neur: Awake and alert Psych: Normal Mood and Affect Result Diagram: 05/19/17 1115 Results 24 hrs Laboratory Tests Test 05/19/17 11:15 Sodium Level 131mmol/L Potassium Level 3.8mmol/L Chloride Level 91mmol/L Carbon Dioxide Level 30mmol/L Anion Gap 14 Blood Urea Nitrogen 31mg/dl Creatinine 8.48mg/dl Glucose Level 125mg/dl Calcium Level 9.1mg/dl Current Medications Medications (Trade) Dose Ordered Sig/Harjeet Route PRN Reason Start Time Stop Time Status Last Admin Dose Admin Acetaminophen (Tylenol Tab) 650 mg ONCE ONCE PO 05/19/17 13:30 05/19/17 13:31 DC 05/19/17 13:41 Acetaminophen (Tylenol Tab) 325 mg STK-MED ONCE .ROUTE 05/19/17 13:02 05/19/17 13:03 DC Procedures/MDM Time 1112: I spoke with the patient's primary care physician who states that he ordered a C. difficile, but does not think that the patient has produced stool in the office. He will follow-up with the patient and arrange for GI follow-up , and is aware that stool studies will be sent from the ER. MDM: Patient is a 56-year-old male with more than 1 week of mucoid diarrhea. There is no evidence of GI bleed. The patient is currently without abdominal pain and has benign abdominal exam. He has no recent foreign travel or food exposures that are likely associated with his diarrhea. He is afebrile with normal vital signs. He is on dialysis, but has no significant electrolyte abnormalities. I spoke with his primary care doctor, who will arrange for outpatient GI consultation if his symptoms persist. I sent stool studies, and have advised the patient to follow-up on the results with his PMD in 3 days. Departure Diagnosis: Primary Impression: Diarrhea Diarrhea type: unspecified type Qualified Code: R19.7 - Diarrhea, unspecified type Condition: JOSH Fisher MD May 19, 2017 11:13
[2017-05-19] MEDS ORDERED: ACETAMINOPHEN 325 MG TAB ONE (13:02)
[2017-05-19] MEDS ORDERED: ACETAMINOPHEN 325 MG TAB PO ONE (13:30)
[2017-05-19 13:42] VITALS: BP 154/73; PULSE 76; RESP 20
== END 2017-05-19 13:00 | disposition home or self-care (01) ==
LOC: E/R 09:46
DX: R19.7 Diarrhea, unspecified (principal); I12.0 Hypertensive chronic kidney disease with stage 5 chronic kidney disease or end stage renal disease; N18.6 End stage renal disease; Z99.2 Dependence on renal dialysis; Z87.891 Personal history of nicotine dependence
CPT/HCPCS: 36415; 80048; 87045; 87075; 87177; 99283

== ENCOUNTER 2017-06-01 12:22 | Inpatient (IN) | payer MEDICARE, BC, OTHER ==
[~2017-06-01] VITALS: Ht 160 cm; Wt 65.9 kg
[2017-06-01] MEDS ORDERED: CEFEPIME 2GM/50 ML (PMX) 50 ML IVPB STA (13:58)
[2017-06-01] MEDS ORDERED: ACETAMINOPHEN 325 MG TAB PO ONE (14:00)
[2017-06-01] MEDS ORDERED: VANCOMYCIN 1 GM (PMX) 250 ML IVPB ONE (14:00)
--- NOTE | 2017-06-01 14:25 | RADRPT ---
PROCEDURE: XR Chest. CLINICAL INDICATION: shortness of breath TECHNIQUE: Single portable view of the chest was obtained COMPARISON: None FINDINGS: There is mild cardiomegaly. There is mild pulmonary vascular congestion. There is no evidence of pleural effusion. There is a right-sided Perma-Cath in place. There is no pneumothorax. The bones and soft tissues are unremarkable. RPTAT: AA IMPRESSION: Mild cardiomegaly with pulmonary vascular congestion. .Pramod Kent MD, MD Date Time Electronically viewed and signed by .Pramod Kent MD, on 06/01/2017 14:25 .S/
[2017-06-01 14:47] LABS: ABNORMAL IP MESSAGE 1; BASOPHIL # 0.1 10^3/ul (0.0-0.1); BASOPHILS % 0.4 % (0.0-2.0); EOSINOPHILS # 0.2 10^3/ul (0.0-0.5); EOSINOPHILS % 1.1 % (0.0-7.0); HEMATOCRIT 22.1 % (42.0-52.0); HEMOGLOBIN 7.2 g/dl (14.0-18.0); LYMPHOCYTES # 1.3 10^3/ul (0.8-2.9); LYMPHOCYTES % 6.9 % (15.0-51.0); MEAN CORPUSCULAR HGB CONC 32.6 g/dl (32.0-37.0); MEAN CORPUSCULAR VOLUME 98.2 fl (82.0-101.0); MEAN PLATELET VOLUME 11.2 fl (7.4-10.4); MONOCYTE # 1.6 10^3/ul (0.3-0.9); MONOCYTES % 8.7 % (0.0-11.0); NEUTROPHIL # 15.4 10^3/ul (1.6-7.5); PLATELET COUNT 213 10^3/UL (140-415); POSITIVE DIFF @See below; RED BLOOD COUNT 2.25 10^6/ul (4.70-6.10); RED CELL DISTRIBUTION WIDTH 14.2 % (11.5-14.5); WHITE BLOOD COUNT 18.8 10^3/ul (4.8-10.8)
[2017-06-01 15:03] LABS: INR 1.13; PROTIME 14.5 Sec (12.2-14.2); PT RATIO 1.1
[2017-06-01 15:04] LABS: PARTIAL THROMBOPLASTIN TIME 33.7 Sec (25.0-35.0)
[2017-06-01 15:09] VITALS: TEMP 99.2
[2017-06-01 15:14] LABS: ALBUMIN 3.4 g/dl (3.3-4.9); ALBUMIN/GLOBULIN RATIO 0.94; BILIRUBIN,INDIRECT 0.1 mg/dl (0-1.1); BILIRUBIN,TOTAL 0.1 mg/dl (0.2-1.3); CALCIUM 9.6 mg/dl (8.4-10.2); CREATININE 11.41 mg/dl (0.61-1.24); POTASSIUM 4.1 mmol/L (3.5-5.1)
[2017-06-01 15:24] LABS: TROPONIN-I 0.03 ng/ml (0.00-0.12)
[2017-06-01] MEDS ORDERED: ACETAMINOPHEN 325 MG TAB PO PRN (16:00)
[2017-06-01] MEDS ORDERED: ONDANSETRON 4 MG INJ IV PRN ×2 (16:00→17:30)
--- NOTE | 2017-06-01 16:39 | ERD ---
ER Documentation Chief Complaint Chief Complaint dialysis not done today (MWF) due to low H&H 6.8/20.4 HPI Patient is a 56-year-old male with dialysis and hypertension who presents with fever. He had dialysis today and was sent to the ER because he had a hemoglobin of 6.6. He has fevers. He denies cough. He does not make urine. He has had bloody stool as well. He does not know the name of his primary doctor or his customer success director at this time. ROS All systems reviewed and are negative except as per history of present illness. Medications Home Meds Active Scripts Metoprolol Tartrate* (Lopressor*) 50 Mg Tab, 50 MG PO BID for 30 Days, #60 TAB 0 Refills Prov:REENA CLAUDIO MD 02/27/17 Reported Medications Simvastatin* (Zocor*) 20 Mg Tablet, 20 MG PO QHS, #30 TAB 05/06/17 Tamsulosin Hcl* (Tamsulosin Hcl*) 0.4 Mg Cap.er.24h, 0.4 MG PO HS, CAP 02/26/17 Sevelamer Carbonate* (Renvela*) 800 Mg Tablet, 2.4 GM PO WITH MEALS, TAB 01/03/17 Gabapentin* (Gabapentin*) 300 Mg Capsule, 300 MG PO DAILY, #30 CAP 01/03/17 Amlodipine Besylate* (Amlodipine Besylate*) 10 Mg Tablet, 10 MG PO DAILY, #30 TAB 01/03/17 Allergies Allergies: Coded Allergies: No Known Allergy (Unverified , 02/26/17) PMhx/Soc History of Surgery: Yes (AV SHUNT L ARM, KIDNEY SX) Anesthesia Reaction: No Hx Neurological Disorder: No Hx Respiratory Disorders: No Hx Cardiac Disorders: Yes (HTN) Hx Psychiatric Problems: No Hx Miscellaneous Medical Probl: Yes (RENAL FAILURE W/ DIALYSIS) Hx Alcohol Use: No Hx Substance Use: No Hx Tobacco Use: Yes (1 YEAR AGO) Smoking Status: Never smoker FmHx Family History: No diabetes Physical Exam Vitals Vital Signs Date Time Temp Pulse Resp B/P Pulse Ox O2 Delivery O2 Flow Rate FiO2 06/01/17 15:09 99.2 71 16 139/95 100 Room Air 06/01/17 14:34 Nasal Cannula 2 06/01/17 12:28 102.2 73 26 157/70 95 Physical Exam Const: Moderate distress Head: Atraumatic Eyes: Normal Conjunctiva ENT: Normal External Ears, Nose and Mouth. Neck: Full range of motion..~ No meningismus. Resp: Clear to auscultation bilaterally Cardio: Regular rate and rhythm, no murmurs Abd: Soft, non tender, non distended. Normal bowel sounds Skin: Pale skin, dialysis catheter in the right chest wall Back: No midline or flank tenderness Ext: No cyanosis, or edema Neur: Awake and alert Psych: Normal Mood and Affect Result Diagram: 06/01/17 1425 06/01/17 1425 Results 24 hrs Laboratory Tests Test 06/01/17 14:25 06/01/17 14:40 White Blood Count 18.810^3/ul Red Blood Count 2.2510^6/ul Hemoglobin 7.2g/dl Hematocrit 22.1% Mean Corpuscular Volume 98.2fl Mean Corpuscular Hemoglobin 32.0pg Mean Corpuscular Hemoglobin Concent 32.6g/dl Red Cell Distribution Width 14.2% Platelet Count 16073^3/UL Mean Platelet Volume 11.2fl Neutrophils % 82.0% Lymphocytes % 6.9% Monocytes % 8.7% Eosinophils % 1.1% Basophils % 0.4% Nucleated Red Blood Cells % 0.0/100WBC Neutrophils # 15.410^3/ul Lymphocytes # 1.310^3/ul Monocytes # 1.610^3/ul Eosinophils # 0.210^3/ul Basophils # 0.110^3/ul Nucleated Red Blood Cells # 0.010^3/ul Prothrombin Time 14.5Sec Prothrombin Time Ratio 1.1 INR International Normalized Ratio 1.13 Activated Partial Thromboplast Time 33.7Sec Sodium Level 138mmol/L Potassium Level 4.1mmol/L Chloride Level 94mmol/L Carbon Dioxide Level 28mmol/L Anion Gap 20 Blood Urea Nitrogen 75mg/dl Creatinine 11.41mg/dl Glucose Level 137mg/dl Calcium Level 9.6mg/dl Total Bilirubin 0.1mg/dl Direct Bilirubin 0.00mg/dl Indirect Bilirubin 0.1mg/dl Aspartate Amino Transf (AST/SGOT) 22IU/L Alanine Aminotransferase (ALT/SGPT) 39IU/L Alkaline Phosphatase 102IU/L Troponin I 0.030ng/ml Total Protein 7.0g/dl Albumin 3.4g/dl Globulin 3.60g/dl Albumin/Globulin Ratio 0.94 Lactic Acid Level 1.3mmol/L Current Medications Medications (Trade) Dose Ordered Sig/Harjeet Route PRN Reason Start Time Stop Time Status Last Admin Dose Admin Cefepime HCl 50 ml @ 100 mls/hr ONCE STAT IVPB 06/01/17 13:58 06/01/17 14:27 DC 06/01/17 14:40 Vancomycin HCl (Vancocin) 250 ml @ 125 mls/hr ONCE ONCE IVPB 06/01/17 14:00 06/01/17 15:59 DC 06/01/17 14:00 Acetaminophen (Tylenol Tab) 650 mg ONCE ONCE PO 06/01/17 14:00 06/01/17 14:01 DC 06/01/17 14:55 Ondansetron HCl (Zofran Inj) 4 mg BRIDGE ORDER PRN IV NAUSEA AND/OR VOMITING 06/01/17 16:00 06/02/17 15:59 Acetaminophen (Tylenol Tab) 650 mg ER BRIDGE PRN PO MILD PAIN/FEVER 06/01/17 16:00 06/02/17 15:59 Procedures/MDM EKG read by me: Rate/Rhythm: Regular rate and rhythm at a rate of 68 Intervals: Normal Impression: No evidence of ischemia or arrhythmia Chest x-ray negative for pneumonia per radiology. Admit MDM: Patient's infectious symptoms have not stabilized and the patient is at risk of rapid decompensation. The patient will be admitted for careful hydration, antibiotic therapy, and infectious source control. Severe Sepsis criteria: Infectious source: Possible line infection End organ damage indicated by: Creatinine greater than 2 Sepsis Management: Time of recognition of sepsis: 1425 Within 3 hours of recognition: Blood cultures x 2 before broad-spectrum antibiotics: Yes 30 ml/kg NS bolus not given because the patient has renal failure and gets dialysis and I was concerned about fluid overload Initial lactate 1.3 Repeat lactate pending Time of recognition of septic shock: No septic shock Septic Shock Assessment: Any lactic acid > 4.0 No Persistent hypotension (SBP < 90 or 40 mmHg drop, MAP < 65) despite 30 mL/kg IV fluid bolus No Volume Re-assessment for Septic Shock (post 30 ml/kg bolus): No septic shock at this time Persistent Hypotension Treatment: Comfort care No Central line Not Required Vasopressor started Not required I considered further perfusion assessment with CVP measurement, SCVO2, bedside ultrasound volume assessment, passive leg raise, trial of further fluid bolus. And proceeded with broad spectrum antibiotics and admission. I did not give a fluid bolus because the patient has renal failure with dialysis and I was concerned for fluid overload. Accepting Care Team Current data and ongoing care discussed. Admitting Physician: Dr. Meneses from the panel team Warp Dresser(s): None Outstanding Data: Culture results and repeat lactic acid Critical Care: Critical care time 35 minutes excluding all billable procedures Emergent fluid management while maintaining close respiratory support. Provision of immediate and broad-spectrum antibiotic therapy. Simultaneous assessment for possible sources in order to direct targeted therapy. Consideration for invasive and chemical support to prevent cardiopulmonary collapse. Departure Diagnosis: Primary Impression: Severe sepsis Additional Impressions: Anemia Anemia type: unspecified type Qualified Code: D64.9 - Anemia, unspecified type Renal failure Renal failure chronicity: unspecified chronicity Qualified Code: N19 - Renal failure, unspecified chronicity GI bleed GI bleed type/associated pathology: unspecified gastrointestinal hemorrhage type Qualified Code: K92.2 - Gastrointestinal hemorrhage, unspecified gastrointestinal hemorrhage type Condition: Serious ZELDA MOODY MD Jun 01, 2017 16:39
[2017-06-01] MEDS ORDERED: SOD CHLORIDE 0.9% 250 ML IV* ONE (17:03)
--- NOTE | 2017-06-01 17:23 | HP ---
Date/Time of Note Date/Time of Note DATE: 06/01/17 TIME: 17:16 Assessment/Plan VTE Prophylaxis VTE Prophylaxis Intervention: SCD's Assessment/Plan Chief Complaint/Hosp Course o: Physical exam General: Patient is laying in bed and answers questions appropriately Mentation: Patient is alert and oriented 4, Head: Normocephalic atraumatic Eyes: EOMI, pupils reactive to light Neck: Supple, nontender, midline Respiratory: diminished to auscultation bilaterally Cardiovascular: regular rate, no obvious murmurs Gastrointestinal: non-tender to palpation, bowel sounds heard. Neurological: Moves all extremities spontaneously Skin: No new skin lesions Patient is a 56-year-old male with a past medical history of end-stage renal disease who presents with low hemoglobin and history of recent bloody diarrhea. Assessment and plan Sepsis, GI source -Broad-spectrum antibiotics, lactic acid within normal limits, patient on end- stage renal disease with no urine production, judicious fluid management, encourage p.o. intake for now, follow-up with lactic acid -Patient's fever already within normal limits, still high white count, monitor GI bleed -Questionable infectious etiology given bloody diarrhea, Protonix drip started, GI consulted, does not seem like overt GI bleed at this time, patient's issue was probably from slow bleed secondary from possible infectious cause. -We will consider CT scan of the abdomen if needed -Stool studies sent out, FOBT -Monitor closely End-stage renal disease on hemodialysis -Blood products ordered to be administered with hemodialysis, patient's sports complex attendant, Dr. Patel consulted, spoke directly on phone, will order HD for tonight or tomorrow -Right permacath Hypertension -Patient on what appears to be 125 mg metoprolol twice daily, curiously high dose, will be conservative and start at 50 mg twice daily for now -Continue hydralazine and amlodipine Problems: HPI/ROS Admit Date/Time Admit Date/Time Hx of Present Illness Patient is a 56-year-old male with a past medical history significant for hypertension, end-stage renal disease who presents to [facility] after being sent by his dialysis center for low hemoglobin. Patient's hemoglobin upon arrival was 7.2 and patient also complained about a week of feeling unwell, fevers, bloody stool as well as generalized weakness. Patient states that although he appears comfortable, he states that he feels weak. Patient is wondering if he is going to get blood. Patient denies any chest pain but does endorse some shortness of breath as well as nausea. Patient states that he also continues to get bloody diarrhea at this time although much improved than before. Patient has also been on oral vancomycin by his primary care provider for diarrhea and fever. PMH: End-stage renal disease on hemodialysis, hypertension, GERD PSH: Permacath Meds: It should be noted patient's current medications was reviewed at bedside, different from discharge medications during last admission, includes metformin 100 twice daily, omeprazole, hydralazine, amlodipine PMH/Family/Social Social History Smoking Status: Never smoker Exam/Review of Systems Vital Signs Vitals Vital Signs Date Time Temp Pulse Resp B/P Pulse Ox O2 Delivery O2 Flow Rate FiO2 06/01/17 15:09 99.2 71 16 139/95 100 Room Air 06/01/17 14:34 2 Labs Result Diagram: 06/01/17 1425 06/01/17 1425 Medications Medications Current Medications Lorazepam (Ativan) 0.5 mg Q8H PRN PO ANXIETY; Start 06/01/17 at 17:30; Status UNV Ondansetron HCl (Zofran Inj) 4 mg Q6H PRN IV NAUSEA AND/OR VOMITING; Start at 17:30; Status UNV Acetaminophen (Tylenol Tab) 650 mg Q6H PRN PO PAIN LEVEL 1-3 OR FEVER; Start 06/01/17 at 17:30; Status UNV Acetaminophen/ Hydrocodone Bitart ([place] (5/325)) 1 tab Q6H PRN PO PAIN LEVEL 4 -6; Start 06/01/17 at 17:30; Status UNV Morphine Sulfate (morphine) 2 mg Q4H PRN IV PAIN LEVEL 7-10; Start 06/01/17 at 17:30; Status UNV Bisacodyl 5 mg 5 mg DAILY PRN PO CONSTIPATION; Start 06/01/17 at 17:30; Status UNV Pantoprazole 80 mg/Sodium Chloride 100 ml @ 10 mls/hr Q10H IV ; Start at 17:30; Status UNV Piperacillin Sod/ Tazobactam Sod (Zosyn 3.375gm/ 50 ml (Pmx)) 50 ml @ 100 mls/ hr Q6 IVPB ; Start 06/01/17 at 18:00; Status UNV Metoprolol Tartrate (Lopressor) 50 mg BID PO ; Start 06/01/17 at 21:00; Status UNV Pantoprazole (Protonix Tab) 40 mg DAILY@06 PO ; Start 06/02/17 at 06:00; Status UNV Hydralazine HCl (Apresoline) 50 mg QID PO ; Start 06/01/17 at 21:00; Status UNV Amlodipine Besylate (Norvasc) 10 mg DAILY PO ; Start 06/02/17 at 09:00; Status UNV Hydralazine HCl (Apresoline) 10 mg Q4H PRN IV sbp>160; Start 06/01/17 at 17:30 ; Status UNV TITO PENA Jun 01, 2017 17:23
[2017-06-01] MEDS ORDERED: morphine 2 MG INJ IV PRN (17:30)
[2017-06-01] MEDS ORDERED: LORAZEPAM 0.5 MG TAB PO PRN (17:30)
[2017-06-01] MEDS ORDERED: ALBUTEROL/IPRATROPIUM (NEB) 3 ML AMP HHN PRN (17:30)
[2017-06-01] MEDS ORDERED: BISACODYL (EC) 5 MG TAB PO PRN (17:30)
[2017-06-01] MEDS ORDERED: HYDROCODONE/APAP (5/325) TAB PO PRN (17:30)
[2017-06-01] MEDS ORDERED: NACL 0.9% 3 ML SYG IV SCH (17:30)
[2017-06-01 18:00] VITALS: BP 155/72; PULSE 77
[2017-06-01 18:30] VITALS: BP_SYST 124; BP_SYST 155; BP_DIAS 68; BP_DIAS 72; PULSE 77; PULSE 98; RESP 20
[2017-06-01] MEDS: ACETAMINOPHEN 325 MG TAB PO PRN (18:40)
[2017-06-01 19:00] VITALS: BP 164/88; PULSE 100
[2017-06-01 19:30] VITALS: BP 151/70; PULSE 130
[2017-06-01] MEDS: ALBUTEROL/IPRATROPIUM (NEB) 3 ML AMP HHN SCH (20:00)
[2017-06-01] MEDS ORDERED: VANCOMYCIN 500MG/NS (PMX) 100 ML IVPB SCH (20:00)
[2017-06-01] MEDS: PIPER-TAZO 2.25 GM (PMX) 50 ML IVPB SCH (20:38)
[2017-06-01] MEDS: PANTOPRAZOLE IV 80 MG in SOD CHLORIDE 0.9% 100 ML IV SCH ×2 (20:44→23:44)
[2017-06-01] MEDS: METOPROLOL 50 MG TAB PO SCH (21:38)
[2017-06-02] VITALS (29 sets, daily range): BP systolic 111–161; BP diastolic 55–91; PULSE 65–82; RESP 15–23
[2017-06-02] MEDS: PANTOPRAZOLE IV 80 MG in SOD CHLORIDE 0.9% 100 ML IV SCH ×3 (03:30→23:39)
[2017-06-02] MEDS: PIPER-TAZO 2.25 GM (PMX) 50 ML IVPB SCH ×2 (05:06→18:17)
[2017-06-02 05:47] LABS: ABNORMAL IP MESSAGE 1; BASOPHIL # 0.1 10^3/ul (0.0-0.1); BASOPHILS % 0.4 % (0.0-2.0); EOSINOPHILS # 0.3 10^3/ul (0.0-0.5); EOSINOPHILS % 1.3 % (0.0-7.0); HEMATOCRIT 20.5 % (42.0-52.0); LYMPHOCYTES # 1.4 10^3/ul (0.8-2.9); LYMPHOCYTES % 7.2 % (15.0-51.0); MEAN CORPUSCULAR HEMOGLOBIN 30.9 pg (29.0-33.0); MEAN CORPUSCULAR HGB CONC 31.2 g/dl (32.0-37.0); MEAN PLATELET VOLUME 11.9 fl (7.4-10.4); MONOCYTE # 1.2 10^3/ul (0.3-0.9); MONOCYTES % 6.6 % (0.0-11.0); NEUTROPHIL # 15.8 10^3/ul (1.6-7.5); NEUTROPHILS % 83.9 % (39.0-77.0); PLATELET COUNT 179 10^3/UL (140-415); POSITIVE DIFF @See below; RED BLOOD COUNT 2.07 10^6/ul (4.70-6.10); RED CELL DISTRIBUTION WIDTH 14.3 % (11.5-14.5); WHITE BLOOD COUNT 18.8 10^3/ul (4.8-10.8)
[2017-06-02 05:52] LABS: HEMOGLOBIN 6.4 g/dl (14.0-18.0)
[2017-06-02] MEDS ORDERED: PANTOPRAZOLE (EC) 40 MG TAB PO SCH (06:00)
[2017-06-02 06:14] LABS: ALBUMIN 3.2 g/dl (3.3-4.9); ALBUMIN/GLOBULIN RATIO 0.94; BILIRUBIN,INDIRECT 0.3 mg/dl (0-1.1); BILIRUBIN,TOTAL 0.3 mg/dl (0.2-1.3); CALCIUM 9.4 mg/dl (8.4-10.2); CREATININE 10.27 mg/dl (0.61-1.24); MAGNESIUM 2.1 mg/dl (1.7-2.5); POTASSIUM 4.4 mmol/L (3.5-5.1); TOTAL PROTEIN 6.6 g/dl (6.1-8.1)
[2017-06-02] MEDS ORDERED: VANCOMYCIN IV PER PHARMACY XX SCH (07:00)
[2017-06-02] MEDS: ALBUTEROL/IPRATROPIUM (NEB) 3 ML AMP HHN SCH ×3 (07:24→20:38)
[2017-06-02] MEDS: METOPROLOL 50 MG TAB PO SCH ×2 (09:00→21:27)
[2017-06-02] MEDS: AMLODIPINE 10 MG TAB PO SCH (09:00)
--- NOTE | 2017-06-02 10:18 | CONS ---
Date/Time of Note Date/Time of Note DATE: 06/02/17 TIME: 09:43 Assessment/Plan Assessment/Plan Chief Complaint/Hosp Course Summary Assessment and Plan: GI bleed r/o infectious End-stage renal disease on HD Hypertension Plan: Monitor H/H, transfuse for Hgb less than 7.5 Possible colonoscopy in near future if patient agrees Spoke with nurse to notify GI team if patient changes his mind and agrees to colonoscopy Will order CT abd/pelvis without contrast Pt seen in collaboration with Dr. Solorzano Chief Complaint/Reason for Visit: Anemia History of Present Illness: This is a 56 year old male with past medical history of ESRD on HD, and HTN, presented to the ER with anemia. Pt was sent in from dialysis center for low hgb. Pt initially stated bowels were normal without BRBPR, or evidence of black tarry stools, he also denied complaints of hematemesis. However, with further evaluation patient did state he has been having bloody stools described as being loose for the past several days. Now have resolved. He denies abdominal pain, nausea, vomiting, unintentional weight loss, constipation, dysphagia. He stated last EGD/colonoscopy 2 years ago without any significant findings, however, patient does not seem to be a great historian. Upon initial work hgb 7.2 WBC 18.8, labs this am show Hgb to be 6.4 and WBC 18.8. Blood has been ordered and transfusions have been started, stool for OB and stool workup studies have been ordered currently pending we will add C. difficile to lab workup however unlikely to be positive. Discussed plan of colonoscopy including risks/benefits/alternatives/indications of procedure and sedation/ anesthesia. He is currently declining to move forward with the procedure at this time. Will order Ct abd/pelvis without contrast for further evaluation. Past Medical History: ESRD with HD HTN Allergies: NKA PHYSICAL EXAMINATION: GENERAL: Well developed, well nourished, alert & oriented x 3, in no acute distress SKIN: No lesions, no stigmata chronic liver disease, no evidence of bleeding diathesis LYMPHATIC: No palpable lymphadenopathy. HEAD: Normocephalic, atraumatic, no tenderness. EYES: Pupils equal reactive to light and accommodation, full extraocular movements, sclera clear, non-icteric, no discharge. EARS/NOSE AND THROAT: Ears normal, nose normal, oropharynx normal, oral membranes well hydrated without lesions. NECK: Supple, no masses, thyroid normal, CHEST: Inspection within normal limits. CARDIOVASCULAR: Heart: Regular rate and rhythm, no murmurs, gallops or rubs. P RESPIRATORY: Lungs clear to auscultation and percussion, no wheezing, no rubs GASTROINTESTINAL AND LIVER: Abdomen: Soft, non tenderness, non-distended, no hernias, no masses, no organomegaly, no ascites, no guarding, no rebound tenderness, normoactive bowel sounds. Rectal: Deferred. GENITOURINARY: [Male genitalia within normal limits.].] EXTREMITIES: No cyanosis, clubbing or edema. Problems: Consultation Date/Type/Reason Admit Date/Time Past Medical History Medical History: hypertension, renal disease Family History Significant Family History: no pertinent family hx Social History Alcohol Use: none Smoking Status: Never smoker Drug Use: none Exam/Review of Systems Vital Signs Vitals Vital Signs Date Time Temp Pulse Resp B/P Pulse Ox O2 Delivery O2 Flow Rate FiO2 06/02/17 07:27 98.0 63 20 153/68 97 06/02/17 07:22 21 06/01/17 18:30 Room Air 06/01/17 14:34 2 Intake and Output 06/01/17 06/01/17 06/02/17 15:00 23:00 07:00 Intake Total 500 ml 740 ml Output Total 1500 ml Balance -1000 ml 740 ml Results Result Diagram: 06/02/17 0449 06/02/17 0449 Results 24 hrs Laboratory Tests Test 06/01/17 14:25 06/01/17 14:40 06/01/17 17:50 06/01/17 19:59 White Blood Count 18.8 #H Red Blood Count 2.25 #L Hemoglobin 7.2 #L Hematocrit 22.1 #L Mean Corpuscular Volume 98.2 Mean Corpuscular Hemoglobin 32.0 Mean Corpuscular Hemoglobin Concent 32.6 Red Cell Distribution Width 14.2 Platelet Count 213 # Mean Platelet Volume 11.2 H Neutrophils % 82.0 H Lymphocytes % 6.9 L Monocytes % 8.7 Eosinophils % 1.1 Basophils % 0.4 Nucleated Red Blood Cells % 0.0 Neutrophils # 15.4 H Lymphocytes # 1.3 Monocytes # 1.6 H Eosinophils # 0.2 Basophils # 0.1 Nucleated Red Blood Cells # 0.0 Prothrombin Time 14.5 H Prothrombin Time Ratio 1.1 INR International Normalized Ratio 1.13 Activated Partial Thromboplast Time 33.7 Sodium Level 138 Potassium Level 4.1 Chloride Level 94 L Carbon Dioxide Level 28 Anion Gap 20 H Blood Urea Nitrogen 75 H Creatinine 11.41 H Glucose Level 137 Calcium Level 9.6 Total Bilirubin 0.1 L Direct Bilirubin 0.00 Indirect Bilirubin 0.1 Aspartate Amino Transf (AST/SGOT) 22 Alanine Aminotransferase (ALT/SGPT) 39 Alkaline Phosphatase 102 Troponin I 0.030 Total Protein 7.0 Albumin 3.4 Globulin 3.60 H Albumin/Globulin Ratio 0.94 Lactic Acid Level 1.3 0.8 1.4 Test 06/02/17 04:49 White Blood Count 18.8 H Red Blood Count 2.07 L Hemoglobin 6.4 *L Hematocrit 20.5 L Mean Corpuscular Volume 99.0 Mean Corpuscular Hemoglobin 30.9 Mean Corpuscular Hemoglobin Concent 31.2 L Red Cell Distribution Width 14.3 Platelet Count 179 Mean Platelet Volume 11.9 H Neutrophils % 83.9 H Lymphocytes % 7.2 L Monocytes % 6.6 Eosinophils % 1.3 Basophils % 0.4 Nucleated Red Blood Cells % 0.0 Neutrophils # 15.8 H Lymphocytes # 1.4 Monocytes # 1.2 H Eosinophils # 0.3 Basophils # 0.1 Nucleated Red Blood Cells # 0.0 Sodium Level 138 Potassium Level 4.4 Chloride Level 96 L Carbon Dioxide Level 26 Anion Gap 20 H Blood Urea Nitrogen 63 H Creatinine 10.27 H Glucose Level 117 Calcium Level 9.4 Magnesium Level 2.1 Total Bilirubin 0.3 Direct Bilirubin 0.00 Indirect Bilirubin 0.3 Aspartate Amino Transf (AST/SGOT) 22 Alanine Aminotransferase (ALT/SGPT) 35 Alkaline Phosphatase 89 Total Protein 6.6 Albumin 3.2 L Globulin 3.40 H Albumin/Globulin Ratio 0.94 Medications Medications Current Medications Lorazepam (Ativan) 0.5 mg Q8H PRN PO ANXIETY; Start 06/01/17 at 17:30 Ondansetron HCl (Zofran Inj) 4 mg Q6H PRN IV NAUSEA AND/OR VOMITING; Start at 17:30 Acetaminophen (Tylenol Tab) 650 mg Q6H PRN PO PAIN LEVEL 1-3 OR FEVER Last administered on 06/01/17t 18:40; Admin Dose 650 MG; Start 06/01/17 at 17:30 Acetaminophen/ Hydrocodone Bitart ([place] (5/325)) 1 tab Q6H PRN PO PAIN LEVEL 4 -6; Start 06/01/17 at 17:30 Morphine Sulfate (morphine) 2 mg Q4H PRN IV PAIN LEVEL 7-10; Start 06/01/17 at 17:30 Bisacodyl 5 mg 5 mg DAILY PRN PO CONSTIPATION; Start 06/01/17 at 17:30 Pantoprazole 80 mg/Sodium Chloride 100 ml @ 10 mls/hr Q10H IV Last administered on 06/01/17 23:44; Admin Dose 10 MLS/HR; Start 06/01/17 at 17:30 Piperacillin Sod/ Tazobactam Sod (Zosyn 2.25gm/ 50ml (Pmx)) 50 ml @ 100 mls/hr Q12H IVPB Last administered on 06/02/17 05:06; Admin Dose 100 MLS/HR; Start 06/01/17 at 18:00 Metoprolol Tartrate (Lopressor) 50 mg BID PO Last administered on 06/01/17 21 :38; Admin Dose 50 MG; Start 06/01/17 at 21:00 Hydralazine HCl (Apresoline) 50 mg QID PO Last administered on 06/01/17 21:37 ; Admin Dose 50 MG; Start 06/01/17 at 21:00 Amlodipine Besylate (Norvasc) 10 mg DAILY PO ; Start 06/02/17 at 09:00 Hydralazine HCl (Apresoline) 10 mg Q4H PRN IV sbp>160; Start 06/01/17 at 17:30 Miscellaneous Information (*Rx Drug Level Order Reminder*) RANDOM VANCOMYCIN LEVEL ... ONCE ONCE XX ; Start 06/03/17 at 05:00; Stop 06/03/17 at 05:01 Copies To: CC: TEA SOLORZANO MD, VICTORIA Jun 02, 2017 09:54
--- NOTE | 2017-06-02 11:17 | PN ---
Date/Time of Note Date/Time of Note DATE: 06/02/17 TIME: 11:14 Assessment/Plan VTE Prophylaxis VTE Prophylaxis Intervention: SCD's Lines/Catheters IV [facility]from [facility] PERMA CATH Urinary Cath still in place: No Assessment/Plan Chief Complaint/Hosp Course S: 06/02: feels better than yesterday, does not want colonoscopy at this time o: Physical exam General: Patient is laying in bed and answers questions appropriately Mentation: Patient is alert and oriented 4, Head: Normocephalic atraumatic Eyes: EOMI, pupils reactive to light Neck: Supple, nontender, midline Respiratory: diminished to auscultation bilaterally Cardiovascular: regular rate, no obvious murmurs Gastrointestinal: non-tender to palpation, bowel sounds heard. Neurological: Moves all extremities spontaneously Skin: No new skin lesions Patient is a 56-year-old male with a past medical history of end-stage renal disease who presents with low hemoglobin and history of recent bloody diarrhea. Assessment and plan Sepsis, GI source -Broad-spectrum antibiotics, lactic acid within normal limits, patient on end- stage renal disease with no urine production, judicious fluid management, encourage p.o. intake for now. -Patient's fever already within normal limits, still high white count, monitor -ID consulted, ?permacath infection, non erythematous vs GI GI bleed -Questionable infectious etiology given bloody diarrhea, Protonix drip started, GI consulted, does not seem like overt GI bleed at this time, patient's issue was probably from slow bleed secondary from possible infectious cause. -CT abdomen ordered -refusing colonoscopy -Stool studies sent out, FOBT -Monitor closely End-stage renal disease on hemodialysis -HD to be ordered per renal, Dr. Real. -Right permacath Hypertension -Patient on what appears to be 125 mg metoprolol twice daily, curiously high dose, will be conservative and start at 50 mg twice daily for now -Continue hydralazine and amlodipine anemia -GI source, with bowel movement, no blood seen per patient in most recent bowel movement DISPO -f/u with ID/GI recommendations -upgraded to tele, but in ICU for overflow Problems: Exam/Review of Systems Vital Signs Vitals Vital Signs Date Time Temp Pulse Resp B/P Pulse Ox O2 Delivery O2 Flow Rate FiO2 06/02/17 10:30 65 22 135/59 94 Room Air 06/02/17 10:00 98.2 06/02/17 07:22 21 06/01/17 14:34 2 Intake and Output 06/01/17 06/01/17 06/02/17 15:00 23:00 07:00 Intake Total 500 ml 740 ml Output Total 1500 ml Balance -1000 ml 740 ml Results Result Diagram: 06/02/17 0449 06/02/17 0449 Results 24 hrs Laboratory Tests Test 06/01/17 14:25 06/01/17 14:40 06/01/17 17:50 06/01/17 19:59 White Blood Count 18.8 #H Red Blood Count 2.25 #L Hemoglobin 7.2 #L Hematocrit 22.1 #L Mean Corpuscular Volume 98.2 Mean Corpuscular Hemoglobin 32.0 Mean Corpuscular Hemoglobin Concent 32.6 Red Cell Distribution Width 14.2 Platelet Count 213 # Mean Platelet Volume 11.2 H Neutrophils % 82.0 H Lymphocytes % 6.9 L Monocytes % 8.7 Eosinophils % 1.1 Basophils % 0.4 Nucleated Red Blood Cells % 0.0 Neutrophils # 15.4 H Lymphocytes # 1.3 Monocytes # 1.6 H Eosinophils # 0.2 Basophils # 0.1 Nucleated Red Blood Cells # 0.0 Prothrombin Time 14.5 H Prothrombin Time Ratio 1.1 INR International Normalized Ratio 1.13 Activated Partial Thromboplast Time 33.7 Sodium Level 138 Potassium Level 4.1 Chloride Level 94 L Carbon Dioxide Level 28 Anion Gap 20 H Blood Urea Nitrogen 75 H Creatinine 11.41 H Glucose Level 137 Calcium Level 9.6 Total Bilirubin 0.1 L Direct Bilirubin 0.00 Indirect Bilirubin 0.1 Aspartate Amino Transf (AST/SGOT) 22 Alanine Aminotransferase (ALT/SGPT) 39 Alkaline Phosphatase 102 Troponin I 0.030 Total Protein 7.0 Albumin 3.4 Globulin 3.60 H Albumin/Globulin Ratio 0.94 Lactic Acid Level 1.3 0.8 1.4 Test 06/02/17 04:49 White Blood Count 18.8 H Red Blood Count 2.07 L Hemoglobin 6.4 *L Hematocrit 20.5 L Mean Corpuscular Volume 99.0 Mean Corpuscular Hemoglobin 30.9 Mean Corpuscular Hemoglobin Concent 31.2 L Red Cell Distribution Width 14.3 Platelet Count 179 Mean Platelet Volume 11.9 H Neutrophils % 83.9 H Lymphocytes % 7.2 L Monocytes % 6.6 Eosinophils % 1.3 Basophils % 0.4 Nucleated Red Blood Cells % 0.0 Neutrophils # 15.8 H Lymphocytes # 1.4 Monocytes # 1.2 H Eosinophils # 0.3 Basophils # 0.1 Nucleated Red Blood Cells # 0.0 Sodium Level 138 Potassium Level 4.4 Chloride Level 96 L Carbon Dioxide Level 26 Anion Gap 20 H Blood Urea Nitrogen 63 H Creatinine 10.27 H Glucose Level 117 Calcium Level 9.4 Magnesium Level 2.1 Total Bilirubin 0.3 Direct Bilirubin 0.00 Indirect Bilirubin 0.3 Aspartate Amino Transf (AST/SGOT) 22 Alanine Aminotransferase (ALT/SGPT) 35 Alkaline Phosphatase 89 Total Protein 6.6 Albumin 3.2 L Globulin 3.40 H Albumin/Globulin Ratio 0.94 Medications Medications Current Medications Lorazepam (Ativan) 0.5 mg Q8H PRN PO ANXIETY; Start 06/01/17 at 17:30 Ondansetron HCl (Zofran Inj) 4 mg Q6H PRN IV NAUSEA AND/OR VOMITING; Start at 17:30 Acetaminophen (Tylenol Tab) 650 mg Q6H PRN PO PAIN LEVEL 1-3 OR FEVER Last administered on 06/01/17 18:40; Admin Dose 650 MG; Start 06/01/17 at 17:30 Acetaminophen/ Hydrocodone Bitart ([place] (5/325)) 1 tab Q6H PRN PO PAIN LEVEL 4 -6; Start 06/01/17 at 17:30 Morphine Sulfate (morphine) 2 mg Q4H PRN IV PAIN LEVEL 7-10; Start 06/01/17 at 17:30 Bisacodyl 5 mg 5 mg DAILY PRN PO CONSTIPATION; Start 06/01/17 at 17:30 Pantoprazole 80 mg/Sodium Chloride 100 ml @ 10 mls/hr Q10H IV Last administered on 06/01/17 23:44; Admin Dose 10 MLS/HR; Start 06/01/17 at 17:30 Piperacillin Sod/ Tazobactam Sod (Zosyn 2.25gm/ 50ml (Pmx)) 50 ml @ 100 mls/hr Q12H IVPB Last administered on 06/02/17 05:06; Admin Dose 100 MLS/HR; Start 06/01/17 at 18:00 Metoprolol Tartrate (Lopressor) 50 mg BID PO Last administered on 06/01/17 21 :38; Admin Dose 50 MG; Start 06/01/17 at 21:00 Hydralazine HCl (Apresoline) 50 mg QID PO Last administered on 06/01/17 21:37 ; Admin Dose 50 MG; Start 06/01/17 at 21:00 Amlodipine Besylate (Norvasc) 10 mg DAILY PO ; Start 06/02/17 at 09:00 Hydralazine HCl (Apresoline) 10 mg Q4H PRN IV sbp>160; Start 06/01/17 at 17:30 Miscellaneous Information (*Rx Drug Level Order Reminder*) RANDOM VANCOMYCIN LEVEL ... ONCE ONCE XX ; Start 06/03/17 at 05:00; Stop 06/03/17 at 05:01 TITO PENA Jun 02, 2017 11:17
--- NOTE | 2017-06-02 13:49 | CONS ---
DATE OF ADMISSION: 06/01/2017 DATE OF CONSULTATION: 06/02/2017 TYPE OF CONSULTATION: Infectious Disease. REASON FOR CONSULTATION: Antibiotic management. HISTORY OF PRESENT ILLNESS: Shirlene Pinto is a 56-year-old male who has numerous problems and is n ow in the intensive care unit with fevers and is to be evaluated by infectious disease. His past pr oblems include: 1. Hypertension. 2. End-stage renal disease on hemodialysis. The patient was sent to the dialysis center for low hemoglobin which was 7.2. He was feeling unwell with fevers, bloody stool and generalized weakness. He denies chest pain, but has shortness of miguelito ath as well as nausea. He continues to have bloody diarrhea, although better than before. He has b een on oral vancomycin prescribed by his primary care doctor for diarrhea and fevers. PAST MEDICAL HISTORY: Operations as outlined. FAMILY HISTORY: Noncontributory. SOCIAL HISTORY: He does not smoke, drink or abuse drugs. ALLERGIES: NONE TO PENICILLIN, SULFA OR FOODS. MEDICATIONS: Per chart. REVIEW OF SYSTEMS: As per HPI. PHYSICAL EXAMINATION: GENERAL: The patient is a 56-year-old male with end-stage renal disease who is lying in bed in no a cute distress. SKIN: Without generalized rash. HEENT: Within normal limits. NECK: Supple. LYMPH NODES: None palpable. CHEST: Decreased breath sounds at the bases. HEART: Without murmur or gallop. ABDOMEN: Soft, nontender, without organosplenomegaly or masses. EXTREMITIES: Without cyanosis, clubbing, or edema. RECTAL AND GENITAL: Deferred. NEUROLOGIC: No focal neurological abnormalities. Patient has a Perm-A-Cath in place. ANCILLARY LABORATORY DATA: White count today is 18.8, hemoglobin 6.4, hematocrit 20.5, platelet cou nt is 179,000, BUN and creatinine 63/10.27. Chest x-ray: Mild cardiomegaly, pulmonary vascular con gestion, Perm-A-Cath. IMPRESSION AND PLAN: The patient obviously has sepsis, etiology of which is unclear. He could have a Perm-A-Cath infection. He could have urinary tract infection. He was placed on vancomycin and Z osyn. His chest x-ray is clear. It is unclear if he has urine output. It does not seem to be. A urine culture has been ordered. Blood cultures ordered. Stool for fecal leukocytes. Stool for C. difficile was ordered as well as a stool culture. Will observe. I will dictate my findings to the hospitalist. Dictated By: RAIMUNDO BARRETO MD, JD/EDDIE Conf#: [id number] DID#: [id number]
[2017-06-03] VITALS (11 sets, daily range): BP systolic 123–162; BP diastolic 59–78; PULSE 61–80; RESP 16–20
[2017-06-03] MEDS: PIPER-TAZO 2.25 GM (PMX) 50 ML IVPB SCH ×3 (06:04→23:53)
[2017-06-03 07:09] LABS: BASOPHIL # 0.1 10^3/ul (0.0-0.1); BASOPHILS % 0.7 % (0.0-2.0); EOSINOPHILS # 0.6 10^3/ul (0.0-0.5); EOSINOPHILS % 4.5 % (0.0-7.0); HEMATOCRIT 27.7 % (42.0-52.0); HEMOGLOBIN 9.3 g/dl (14.0-18.0); LYMPHOCYTES # 1.1 10^3/ul (0.8-2.9); LYMPHOCYTES % 8.3 % (15.0-51.0); MEAN CORPUSCULAR HEMOGLOBIN 30.7 pg (29.0-33.0); MEAN CORPUSCULAR HGB CONC 33.6 g/dl (32.0-37.0); MEAN CORPUSCULAR VOLUME 91.4 fl (82.0-101.0); MEAN PLATELET VOLUME 11.2 fl (7.4-10.4); MONOCYTE # 1.4 10^3/ul (0.3-0.9); MONOCYTES % 10.2 % (0.0-11.0); NEUTROPHIL # 10.3 10^3/ul (1.6-7.5); NEUTROPHILS % 75.6 % (39.0-77.0); PLATELET COUNT 202 10^3/UL (140-415); RED BLOOD COUNT 3.03 10^6/ul (4.70-6.10); RED CELL DISTRIBUTION WIDTH 16.8 % (11.5-14.5); WHITE BLOOD COUNT 13.7 10^3/ul (4.8-10.8)
[2017-06-03 07:33] LABS: CALCIUM 9.1 mg/dl (8.4-10.2); CREATININE 8.12 mg/dl (0.61-1.24); MAGNESIUM 1.9 mg/dl (1.7-2.5); PHOSPHORUS 6.4 mg/dl (2.5-4.9); POTASSIUM 3.6 mmol/L (3.5-5.1)
[2017-06-03] MEDS: ALBUTEROL/IPRATROPIUM (NEB) 3 ML AMP HHN SCH ×3 (08:02→20:00)
[2017-06-03] MEDS: AMLODIPINE 10 MG TAB PO SCH (09:45)
[2017-06-03] MEDS: METOPROLOL 50 MG TAB PO SCH ×2 (09:46→21:03)
[2017-06-03] MEDS: PANTOPRAZOLE IV 80 MG in SOD CHLORIDE 0.9% 100 ML IV SCH (09:54)
--- NOTE | 2017-06-03 10:15 | PN ---
Date/Time of Note Date/Time of Note DATE: 06/03/17 TIME: 10:11 Assessment/Plan VTE Prophylaxis VTE Prophylaxis Intervention: SCD's Lines/Catheters IV [facility]ter [facility] (from [facility] Saline Lock Urinary Cath still in place: No Assessment/Plan Chief Complaint/Hosp Course Summary Assessment and Plan: GI bleed r/o infectious End-stage renal disease on HD Hypertension Plan: Monitor H/H, transfuse for Hgb less than 7.5 CT abd/pelvis without contrast- today Stool studies ordered- no results at this time Pt seen in collaboration with Dr. Solorzano Subjective: Course reviewed with nursing staff Patient interviewed and examined All labs, imaging and other results reviewed The patient feeling well, at bedside, hgb has improved, no further episodes of bloody diarrhea, will await results of Ct abd/pelvis will plan to hold off on colonoscopy at this time. PHYSICAL EXAMINATION: GENERAL: Well developed, well nourished, alert & oriented x 3, in no acute distress SKIN: No lesions, no stigmata chronic liver disease, no evidence of bleeding diathesis LYMPHATIC: No palpable lymphadenopathy. HEAD: Normocephalic, atraumatic, no tenderness. EYES: Pupils equal reactive to light and accommodation, full extraocular movements, sclera clear, non-icteric, no discharge. EARS/NOSE AND THROAT: Ears normal, nose normal, oropharynx normal, oral membranes well hydrated without lesions. NECK: Supple, no masses, thyroid normal, CHEST: Inspection within normal limits. CARDIOVASCULAR: Heart: Regular rate and rhythm, no murmurs, gallops or rubs. P RESPIRATORY: Lungs clear to auscultation and percussion, no wheezing, no rubs GASTROINTESTINAL AND LIVER: Abdomen: Soft, non tenderness, non-distended, no hernias, no masses, no organomegaly, no ascites, no guarding, no rebound tenderness, normoactive bowel sounds. Rectal: Deferred. GENITOURINARY: [Male genitalia within normal limits.].] EXTREMITIES: No cyanosis, clubbing or edema. Problems: Exam/Review of Systems Vital Signs Vitals Vital Signs Date Time Temp Pulse Resp B/P Pulse Ox O2 Delivery O2 Flow Rate FiO2 06/03/17 08:21 72 06/03/17 08:02 18 100 21 06/03/17 07:37 98.0 154/69 06/02/17 15:30 Room Air 11/22/17 14:34 2 Intake and Output 06/02/17 06/02/17 06/03/17 15:00 23:00 07:00 Intake Total 1360 ml 300 ml Output Total 3500 ml Balance -2140 ml 300 ml Results Result Diagram: 06/03/17 0631 06/03/17 0631 Results 24 hrs Laboratory Tests Test 06/02/17 20:42 06/03/17 06:31 Stool Occult Blood NEGATIVE White Blood Count 13.7 #H Red Blood Count 3.03 #L Hemoglobin 9.3 #L Hematocrit 27.7 #L Mean Corpuscular Volume 91.4 Mean Corpuscular Hemoglobin 30.7 Mean Corpuscular Hemoglobin Concent 33.6 Red Cell Distribution Width 16.8 H Platelet Count 202 Mean Platelet Volume 11.2 H Neutrophils % 75.6 Lymphocytes % 8.3 L Monocytes % 10.2 Eosinophils % 4.5 Basophils % 0.7 Nucleated Red Blood Cells % 0.0 Neutrophils # 10.3 H Lymphocytes # 1.1 Monocytes # 1.4 H Eosinophils # 0.6 H Basophils # 0.1 Nucleated Red Blood Cells # 0.0 Sodium Level 137 Potassium Level 3.6 Chloride Level 95 L Carbon Dioxide Level 27 Anion Gap 19 H Blood Urea Nitrogen 39 #H Creatinine 8.12 #H Glucose Level 94 Calcium Level 9.1 Phosphorus Level 6.4 H Magnesium Level 1.9 Random Vancomycin Level 14.6 Medications Medications Current Medications Lorazepam (Ativan) 0.5 mg Q8H PRN PO ANXIETY; Start 06/01/17 at 17:30 Ondansetron HCl (Zofran Inj) 4 mg Q6H PRN IV NAUSEA AND/OR VOMITING; Start at 17:30 Acetaminophen (Tylenol Tab) 650 mg Q6H PRN PO PAIN LEVEL 1-3 OR FEVER Last administered on 06/01/17t 18:40; Admin Dose 650 MG; Start 06/01/17 at 17:30 Acetaminophen/ Hydrocodone Bitart ([place] (5/325)) 1 tab Q6H PRN PO PAIN LEVEL 4 -6; Start 06/01/17 at 17:30 Morphine Sulfate (morphine) 2 mg Q4H PRN IV PAIN LEVEL 7-10; Start 06/01/17 at 17:30 Bisacodyl 5 mg 5 mg DAILY PRN PO CONSTIPATION; Start 06/01/17 at 17:30 Pantoprazole 80 mg/Sodium Chloride 100 ml @ 10 mls/hr Q10H IV Last administered on 06/03/17 09:54; Admin Dose 10 MLS/HR; Start 06/01/17 at 17:30 Piperacillin Sod/ Tazobactam Sod (Zosyn 2.25gm/ 50ml (Pmx)) 50 ml @ 100 mls/hr Q12H IVPB Last administered on 06/03/17 06:04; Admin Dose 100 MLS/HR; Start 06/01/17 at 18:00 Metoprolol Tartrate (Lopressor) 50 mg BID PO Last administered on 06/03/17 09 :46; Admin Dose 50 MG; Start 06/01/17 at 21:00 Hydralazine HCl (Apresoline) 50 mg QID PO Last administered on 06/03/17 09:45 ; Admin Dose 50 MG; Start 06/01/17 at 21:00 Amlodipine Besylate (Norvasc) 10 mg DAILY PO Last administered on 06/03/17 09 :45; Admin Dose 10 MG; Start 06/02/17 at 09:00 Hydralazine HCl 10 mg 10 mg Q4H PRN IV sbp>160; Start 06/01/17 at 17:30 Vancomycin HCl (Vancocin) 250 ml @ 125 mls/hr ONCE IVPB ; Start 06/03/17 at 16 :00; Stop 06/03/17 at 17:59 MARGO HONEYCUTT Jun 03, 2017 10:15
--- NOTE | 2017-06-03 11:49 | PN ---
Date/Time of Note Date/Time of Note DATE: 06/03/17 TIME: 11:48 Assessment/Plan VTE Prophylaxis VTE Prophylaxis Intervention: ambulation, SCD's Lines/Catheters [facility] Saline Lock Urinary Cath still in place: No Assessment/Plan Chief Complaint/Hosp Course S: 06/02: feels better than yesterday, does not want colonoscopy at this time 06.03: no acute issues o: Physical exam General: Patient is laying in bed and answers questions appropriately Mentation: Patient is alert and oriented 4, Head: Normocephalic atraumatic Eyes: EOMI, pupils reactive to light Neck: Supple, nontender, midline Respiratory: diminished to auscultation bilaterally Cardiovascular: regular rate, no obvious murmurs Gastrointestinal: non-tender to palpation, bowel sounds heard. Neurological: Moves all extremities spontaneously Skin: No new skin lesions Patient is a 56-year-old male with a past medical history of end-stage renal disease who presents with low hemoglobin and history of recent bloody diarrhea. Assessment and plan Sepsis, GI source -Broad-spectrum antibiotics, lactic acid within normal limits, patient on end- stage renal disease with no urine production, judicious fluid management, encourage p.o. intake for now. -Patient's fever already within normal limits, white count improving -ID consulted, ?permacath infection, vs infectious GI? GI bleed -Questionable infectious etiology given bloody diarrhea, Protonix drip to DC as no signs of upper GI bleed and negative FOBT. likely secondary from possible infectious cause. -CT abdomen ordered -refusing colonoscopy -Stool studies sent out, FOBT neg -Monitor closely End-stage renal disease on hemodialysis -HD to be ordered per renal, Dr. Real. -Right permacath Hypertension -Patient on what appears to be 125 mg metoprolol twice daily, curiously high dose, will be conservative and start at 50 mg twice daily for now -Continue hydralazine and amlodipine anemia -GI source, with bowel movement, no blood seen per patient in most recent bowel movement DISPO -f/u with ID/GI recommendations Problems: Exam/Review of Systems Vital Signs Vitals Vital Signs Date Time Temp Pulse Resp B/P Pulse Ox O2 Delivery O2 Flow Rate FiO2 06/03/17 08:21 72 06/03/17 08:02 18 100 21 06/03/17 07:37 98.0 154/69 06/02/17 15:30 Room Air 06/01/17 14:34 2 Intake and Output 06/02/17 06/02/17 06/03/17 14:59 22:59 06:59 Intake Total 1350 ml 10 ml 300 ml Output Total 3500 ml Balance -2150 ml 10 ml 300 ml Results Result Diagram: 06/03/17 0631 06/03/17 0631 Results 24 hrs Laboratory Tests Test 06/02/17 20:42 06/03/17 06:31 Stool Occult Blood NEGATIVE White Blood Count 13.7 #H Red Blood Count 3.03 #L Hemoglobin 9.3 #L Hematocrit 27.7 #L Mean Corpuscular Volume 91.4 Mean Corpuscular Hemoglobin 30.7 Mean Corpuscular Hemoglobin Concent 33.6 Red Cell Distribution Width 16.8 H Platelet Count 202 Mean Platelet Volume 11.2 H Neutrophils % 75.6 Lymphocytes % 8.3 L Monocytes % 10.2 Eosinophils % 4.5 Basophils % 0.7 Nucleated Red Blood Cells % 0.0 Neutrophils # 10.3 H Lymphocytes # 1.1 Monocytes # 1.4 H Eosinophils # 0.6 H Basophils # 0.1 Nucleated Red Blood Cells # 0.0 Sodium Level 137 Potassium Level 3.6 Chloride Level 95 L Carbon Dioxide Level 27 Anion Gap 19 H Blood Urea Nitrogen 39 #H Creatinine 8.12 #H Glucose Level 94 Calcium Level 9.1 Phosphorus Level 6.4 H Magnesium Level 1.9 Random Vancomycin Level 14.6 Medications Medications Current Medications Lorazepam (Ativan) 0.5 mg Q8H PRN PO ANXIETY; Start 06/01/17 at 17:30 Ondansetron HCl (Zofran Inj) 4 mg Q6H PRN IV NAUSEA AND/OR VOMITING; Start at 17:30 Acetaminophen (Tylenol Tab) 650 mg Q6H PRN PO PAIN LEVEL 1-3 OR FEVER Last administered on 06/01/17t 18:40; Admin Dose 650 MG; Start 06/01/17 at 17:30 Acetaminophen/ Hydrocodone Bitart ([place] (5/325)) 1 tab Q6H PRN PO PAIN LEVEL 4 -6; Start 06/01/17 at 17:30 Morphine Sulfate (morphine) 2 mg Q4H PRN IV PAIN LEVEL 7-10; Start 06/01/17 at 17:30 Bisacodyl 5 mg 5 mg DAILY PRN PO CONSTIPATION; Start 06/01/17 at 17:30 Pantoprazole 80 mg/Sodium Chloride 100 ml @ 10 mls/hr Q10H IV Last administered on 06/03/17 09:54; Admin Dose 10 MLS/HR; Start 06/01/17 at 17:30 Piperacillin Sod/ Tazobactam Sod (Zosyn 2.25gm/ 50ml (Pmx)) 50 ml @ 100 mls/hr Q12H IVPB Last administered on 06/03/17 06:04; Admin Dose 100 MLS/HR; Start 06/01/17 at 18:00 Metoprolol Tartrate (Lopressor) 50 mg BID PO Last administered on 06/03/17 09 :46; Admin Dose 50 MG; Start 06/01/17 at 21:00 Hydralazine HCl (Apresoline) 50 mg QID PO Last administered on 06/03/17 09:45 ; Admin Dose 50 MG; Start 06/01/17 at 21:00 Amlodipine Besylate (Norvasc) 10 mg DAILY PO Last administered on 06/03/17 09 :45; Admin Dose 10 MG; Start 06/02/17 at 09:00 Hydralazine HCl 10 mg 10 mg Q4H PRN IV sbp>160; Start 06/01/17 at 17:30 Vancomycin HCl (Vancocin) 250 ml @ 125 mls/hr ONCE IVPB ; Start 06/03/17 at 16 :00; Stop 06/03/17 at 17:59 TITO PENA Jun 03, 2017 11:49
[2017-06-03] MEDS ORDERED: VANCOMYCIN 1 GM in NS 250 ML IVPB SCH (16:00)
--- NOTE | 2017-06-03 16:58 | RADRPT ---
PROCEDURE: CT Abdomen and Pelvis without contrast. CLINICAL INDICATION: Abdominal pain TECHNIQUE: CT scan of the abdomen and pelvis was performed on a multidetector high-resolution CT s canner without intravenous contrast. Coronal and sagittal reformatted images were obtained from the axial source images. Images were reviewed on a high-resolution PACS workstation. The total exam CTD I equals 6mGy and the total exam DLP equals 369mGy-cm. One or more of the following dose reduction t echniques were used: Automated exposure control, Adjustment of the mA and/or kV according to patient size, and/or use of iterative reconstruction technique. DICOM images are available. COMPARISON: None. FINDINGS: Evaluation of the solid organs is limited given the lack of intravenous contrast administration. Small right and trace left pleural effusions with ground-glass changes in the lung bases. Cardiomega ly. Small pericardial effusion. The liver, pancreas, spleen, and adrenals are grossly unremarkable. No focal pericholecystic inflammatory changes. Left renal hydronephrosis with left renal atrophy and cortical thinning. There is abrupt caliber nolan nge with subsequent normal-caliber of the left ureter. Bilateral renal cysts. Right anterior renal p eripheral soft tissue density structure measuring at least 2.6 cm. No renal or ureteral stone. Mild dilatation of proximal small bowel loops without high-grade transition point. Normal-caliber appendix. No significant retroperitoneal lymphadenopathy, ascites or evidence of pneumoperitoneum. Aortoiliac atherosclerosis. Prominent prostate gland. Scattered degenerative changes of the spine. IMPRESSION: Mild dilatation of proximal small bowel loops is suggestive of ileus. No evidence of high-grade smal l bowel obstruction. Normal-caliber appendix. Left renal hydronephrosis with abrupt caliber change of the proximal ureter suggestive of chronic le ft ureteropelvic junction obstruction. There is associated left renal atrophy and cortical thinning. Right anterior renal peripheral soft tissue density structure measuring at least 2.6 cm may represen t a renal mass or complex renal cyst. Recommend contrast-enhanced renal CT or MRI for further evalua tion. Small right and trace left pleural effusions with atelectatic changes in the lung bases. RPTAT: AA .Silvano Onofre MD, MD Date Time Electronically viewed and signed by .Silvano Onofre MD, MD on 06/03/2017 16:58 .T/
--- NOTE | 2017-06-03 17:16 | CONS ---
Date/Time of Note Date/Time of Note DATE: 06/03/17 TIME: 17:05 Assessment/Plan Assessment/Plan Chief Complaint/Hosp Course ID PROGRESS NOTE CURRENT ABX: DAY # => Vanco IV + Zosyn 24H INTERVAL SUMMARY * A/A/O-> feeling better, afebrile today, s/p PRBC tx fo GIB = bloody diarrhea * 06/01/17 MICRO: BCx(-); C.Diff (-) * 06/03/17 CT A/P: IMPRESSION: * Mild dilatation of proximal small bowel loops is suggestive of ileus. No evidence of high-grade small bowel obstruction. * Normal-caliber appendix. * Left renal hydronephrosis with abrupt caliber change of the proximal ureter suggestive of chronic left ureteropelvic junction obstruction. There is associated left renal atrophy and cortical thinning. * Right anterior renal peripheral soft tissue density structure measuring at least 2.6 cm may represent a renal mass or complex renal cyst. Recommend contrast-enhanced renal CT or MRI for further evaluation. * Small right and trace left pleural effusions with atelectatic changes in the lung bases. PHYSICAL EXAMINATION: GENERAL: VSS, afebrile, NAD HEENT: Unremarkable NECK: Supple, trach midline CHEST: Equal chest rise bilaterally, without dyspnea on observation HEART: RRR ABDOMEN: Soft, NT EXT: Warm, SKIN: No rash, no diaphoresis ID ASSESSMENT: 56 yo M admit [facility]: 1. Sepsis w/ fevers, leukocytosis, tachycardia on admission => IMPROVED w/ ABX = > Work-up in process * PermCath (POA placed @ [place] ~ 3-weeks prior to admission * -> Bcx (-) 2. Symptomatic anemia -> w/bloody diarrhea => s/p PRBC Tx 3. Ileus per CT 4. Hypertension w/ cardiomegaly and pulmonary vascular congestion per CXR 5. End-stage renal disease on hemodialysis. 6. Left AVF (-)MRSA (-)Influenza ABX ALLERGIES: KNDA INVASIVES: PV CURRENT ABX: *Vanco IV + Zosyn ID RECOMMENDATIONS/PLAN: 1. Continue current ABX, patient has improved and feels better . Problems: Consultation Date/Type/Reason Admit Date/Time Jun 01, 2017 at 15:45 Initial Consult Date Exam/Review of Systems Vital Signs Vitals Vital Signs Date Time Temp Pulse Resp B/P Pulse Ox O2 Delivery O2 Flow Rate FiO2 06/03/17 16:33 78 06/03/17 13:51 18 99 21 06/03/17 12:25 98.0 155/75 06/02/17 15:30 Room Air 06/01/17 14:34 2 Intake and Output 06/02/17 06/02/17 06/03/17 15:00 23:00 07:00 Intake Total 1360 ml 300 ml Output Total 3500 ml Balance -2140 ml 300 ml Results Result Diagram: 06/03/17 0631 06/03/17 0631 Results 24 hrs Laboratory Tests Test 06/02/17 20:42 06/03/17 06:31 Stool Occult Blood NEGATIVE White Blood Count 13.7 #H Red Blood Count 3.03 #L Hemoglobin 9.3 #L Hematocrit 27.7 #L Mean Corpuscular Volume 91.4 Mean Corpuscular Hemoglobin 30.7 Mean Corpuscular Hemoglobin Concent 33.6 Red Cell Distribution Width 16.8 H Platelet Count 202 Mean Platelet Volume 11.2 H Neutrophils % 75.6 Lymphocytes % 8.3 L Monocytes % 10.2 Eosinophils % 4.5 Basophils % 0.7 Nucleated Red Blood Cells % 0.0 Neutrophils # 10.3 H Lymphocytes # 1.1 Monocytes # 1.4 H Eosinophils # 0.6 H Basophils # 0.1 Nucleated Red Blood Cells # 0.0 Sodium Level 137 Potassium Level 3.6 Chloride Level 95 L Carbon Dioxide Level 27 Anion Gap 19 H Blood Urea Nitrogen 39 #H Creatinine 8.12 #H Glucose Level 94 Calcium Level 9.1 Phosphorus Level 6.4 H Magnesium Level 1.9 Random Vancomycin Level 14.6 Medications Medications Current Medications Lorazepam (Ativan) 0.5 mg Q8H PRN PO ANXIETY; Start 06/01/17 at 17:30 Ondansetron HCl (Zofran Inj) 4 mg Q6H PRN IV NAUSEA AND/OR VOMITING; Start at 17:30 Acetaminophen (Tylenol Tab) 650 mg Q6H PRN PO PAIN LEVEL 1-3 OR FEVER Last administered on 06/01/17t 18:40; Admin Dose 650 MG; Start 06/01/17 at 17:30 Acetaminophen/ Hydrocodone Bitart ([place] (5/325)) 1 tab Q6H PRN PO PAIN LEVEL 4 -6; Start 06/01/17 at 17:30 Morphine Sulfate (morphine) 2 mg Q4H PRN IV PAIN LEVEL 7-10; Start 06/01/17 at 17:30 Bisacodyl 5 mg 5 mg DAILY PRN PO CONSTIPATION; Start 06/01/17 at 17:30 Piperacillin Sod/ Tazobactam Sod (Zosyn 2.25gm/ 50ml (Pmx)) 50 ml @ 100 mls/hr Q12H IVPB Last administered on 06/03/17 06:04; Admin Dose 100 MLS/HR; Start 06/01/17 at 18:00 Metoprolol Tartrate (Lopressor) 50 mg BID PO Last administered on 06/03/17 09 :46; Admin Dose 50 MG; Start 06/01/17 at 21:00 Hydralazine HCl (Apresoline) 50 mg QID PO Last administered on 06/03/17 09:45 ; Admin Dose 50 MG; Start 06/01/17 at 21:00 Amlodipine Besylate (Norvasc) 10 mg DAILY PO Last administered on 06/03/17 09 :45; Admin Dose 10 MG; Start 06/02/17 at 09:00 Hydralazine HCl 10 mg 10 mg Q4H PRN IV sbp>160; Start 06/01/17 at 17:30 Vancomycin HCl (Vancocin) 250 ml @ 125 mls/hr ONCE IVPB ; Start 06/03/17 at 16 :00; Stop 06/03/17 at 17:59 HAL ALBERTO NP Jun 03, 2017 17:15
[2017-06-03] MEDS: hydrALAzine 20 MG INJ IV PRN (17:26)
[2017-06-03] MEDS: GABAPENTIN 100 MG CAP PO SCH (21:03)
[2017-06-03] MEDS: ACETAMINOPHEN 325 MG TAB PO PRN (22:37)
[2017-06-04] VITALS (20 sets, daily range): BP systolic 121–179; BP diastolic 55–86; PULSE 70–106; RESP 16–20
[2017-06-04] MEDS: PIPER-TAZO 2.25 GM (PMX) 50 ML IVPB SCH (05:49)
[2017-06-04 07:31] LABS: BASOPHIL # 0.1 10^3/ul (0.0-0.1); BASOPHILS % 1.1 % (0.0-2.0); EOSINOPHILS # 0.9 10^3/ul (0.0-0.5); HEMATOCRIT 29.4 % (42.0-52.0); HEMOGLOBIN 9.6 g/dl (14.0-18.0); LYMPHOCYTES # 1.2 10^3/ul (0.8-2.9); LYMPHOCYTES % 9.9 % (15.0-51.0); MEAN CORPUSCULAR HEMOGLOBIN 30.1 pg (29.0-33.0); MEAN CORPUSCULAR HGB CONC 32.7 g/dl (32.0-37.0); MEAN CORPUSCULAR VOLUME 92.2 fl (82.0-101.0); MEAN PLATELET VOLUME 10.8 fl (7.4-10.4); MONOCYTE # 1.5 10^3/ul (0.3-0.9); NEUTROPHIL # 8.5 10^3/ul (1.6-7.5); NEUTROPHILS % 69.2 % (39.0-77.0); PLATELET COUNT 254 10^3/UL (140-415); RED BLOOD COUNT 3.19 10^6/ul (4.70-6.10); RED CELL DISTRIBUTION WIDTH 15.9 % (11.5-14.5); WHITE BLOOD COUNT 12.3 10^3/ul (4.8-10.8)
[2017-06-04 07:53] LABS: CALCIUM 9.5 mg/dl (8.4-10.2); CREATININE 10.32 mg/dl (0.61-1.24); PHOSPHORUS 7.6 mg/dl (2.5-4.9); POTASSIUM 3.9 mmol/L (3.5-5.1)
[2017-06-04] MEDS: ALBUTEROL/IPRATROPIUM (NEB) 3 ML AMP HHN SCH ×3 (08:00→20:00)
--- NOTE | 2017-06-04 08:31 | CONS ---
Date/Time of Note Date/Time of Note DATE: 06/04/17 TIME: 08:28 Consultation Date/Type/Reason Admit Date/Time Jun 01, 2017 at 15:45 Reason for Consultation ESRD on dialysis He had anemia and received 2 units of blood trasnfusion and the blood cultures has been negative and has not had any fevres i saw him now on dialysis and denies any complaints now Hx of Present Illness he has a cyst in the kind[place] and will need MRI of the abdomen on TUESDAY WITH NO CONTRAST to evaluate this cyst He says he has allergy to contrast so we cannot do CT scan with contrast dialysis done now next dialysis tuesday d/c home after MRI Past Medical History Medical History: hypertension, renal disease Social History Alcohol Use: none Smoking Status: Never smoker Drug Use: none Exam/Review of Systems Vital Signs Vitals Vital Signs Date Time Temp Pulse Resp B/P Pulse Ox O2 Delivery O2 Flow Rate FiO2 06/04/17 08:04 81 06/04/17 04:00 97.9 20 150/69 98 Room Air 06/03/17 23:35 21 06/01/17 14:34 2 Intake and Output 06/03/17 06/03/17 06/04/17 15:00 23:00 07:00 Intake Total 50 ml 300 ml Balance 50 ml 300 ml Results Result Diagram: 06/04/1770406/04/17704 Results 24 hrs Laboratory Tests Test 06/04/17 05:53 06/04/17 07:05 Lab Scanned Report BLOOD TRANSFUSION White Blood Count 12.3 H Red Blood Count 3.19 L Hemoglobin 9.6 L Hematocrit 29.4 L Mean Corpuscular Volume 92.2 Mean Corpuscular Hemoglobin 30.1 Mean Corpuscular Hemoglobin Concent 32.7 Red Cell Distribution Width 15.9 H Platelet Count 254 # Mean Platelet Volume 10.8 H Neutrophils % 69.2 Lymphocytes % 9.9 L Monocytes % 12.0 H Eosinophils % 7.0 Basophils % 1.1 Nucleated Red Blood Cells % 0.0 Neutrophils # 8.5 H Lymphocytes # 1.2 Monocytes # 1.5 H Eosinophils # 0.9 H Basophils # 0.1 Nucleated Red Blood Cells # 0.0 Sodium Level 136 Potassium Level 3.9 Chloride Level 96 L Carbon Dioxide Level 24 Anion Gap 20 H Blood Urea Nitrogen 50 H Creatinine 10.32 #H Glucose Level 91 Calcium Level 9.5 Phosphorus Level 7.6 H Magnesium Level 2.0 Medications Medications Current Medications Lorazepam (Ativan) 0.5 mg Q8H PRN PO ANXIETY; Start 06/01/17 at 17:30 Ondansetron HCl (Zofran Inj) 4 mg Q6H PRN IV NAUSEA AND/OR VOMITING; Start at 17:30 Acetaminophen (Tylenol Tab) 650 mg Q6H PRN PO PAIN LEVEL 1-3 OR FEVER Last administered on 06/03/17 22:37; Admin Dose 650 MG; Start 06/01/17 at 17:30 Acetaminophen/ Hydrocodone Bitart ([place] (5/325)) 1 tab Q6H PRN PO PAIN LEVEL 4 -6; Start 06/01/17 at 17:30 Morphine Sulfate (morphine) 2 mg Q4H PRN IV PAIN LEVEL 7-10; Start 06/01/17 at 17:30 Bisacodyl (Dulcolax) 5 mg DAILY PRN PO CONSTIPATION; Start 06/01/17 at 17:30 Metoprolol Tartrate (Lopressor) 50 mg BID PO Last administered on 06/03/17 21 :03; Admin Dose 50 MG; Start 06/01/17 at 21:00 Hydralazine HCl (Apresoline) 50 mg QID PO Last administered on 06/03/17 21:02 ; Admin Dose 50 MG; Start 06/01/17 at 21:00 Amlodipine Besylate (Norvasc) 10 mg DAILY PO Last administered on 06/03/17 09 :45; Admin Dose 10 MG; Start 06/02/17 at 09:00 Hydralazine HCl 10 mg 10 mg Q4H PRN IV sbp>160 Last administered on 06/03/17 17:26; Admin Dose 10 MG; Start 06/01/17 at 17:30 Piperacillin Sod/ Tazobactam Sod (Zosyn 2.25gm/ 50ml (Pmx)) 50 ml @ 100 mls/hr Q8 IVPB Last administered on 06/04/17 05:49; Admin Dose 100 MLS/HR; Start at 18:00 Gabapentin (Neurontin) 100 mg BID PO Last administered on 06/03/17 21:03; Admin Dose 100 MG; Start 06/03/17 at 21:00 SULAIMAN RIVAS MD Jun 04, 2017 08:31
[2017-06-04] MEDS: GABAPENTIN 100 MG CAP PO SCH ×2 (09:00→20:25)
[2017-06-04] MEDS: AMLODIPINE 10 MG TAB PO SCH (09:00)
[2017-06-04] MEDS: METOPROLOL 50 MG TAB PO SCH ×2 (09:00→20:26)
--- NOTE | 2017-06-04 11:08 | CONS ---
Date/Time of Note Date/Time of Note DATE: 06/04/17 TIME: 11:01 Assessment/Plan Assessment/Plan Chief Complaint/Hosp Course ID PROGRESS NOTE CURRENT ABX: DAY # 4=> Vanco IV + Zosyn 24H INTERVAL SUMMARY * Patient is improved, he feels back to baseline, currently asymptomatic and he is eager to go home. * Has received adequate course 4-days for concern gastroenteritis * 06/01/17 MICRO: BCx(-); C.Diff (-) PHYSICAL EXAMINATION: GENERAL: VSS, afebrile, NAD HEENT: Unremarkable NECK: Supple, trach midline CHEST: Equal chest rise bilaterally, without dyspnea on observation HEART: RRR ABDOMEN: Soft, NT EXT: Warm, SKIN: No rash, no diaphoresis ID ASSESSMENT: 56 yo M admit [facility]: 1. Sepsis w/ fevers, leukocytosis, tachycardia on admission => IMPROVED w/ ABX = > Work-up in process * PermCath (POA placed @ [place] ~ 3-weeks prior to admission * -> Bcx (-) 2. Acute gastroenteritis -> w/bloody diarrhea & anemia => s/p PRBC Tx 3. Ileus per CT 4. Hypertension w/ cardiomegaly and pulmonary vascular congestion per CXR 5. End-stage renal disease on hemodialysis. 6. Left AVF (-)MRSA (-)Influenza ABX ALLERGIES: KNDA INVASIVES: PV CURRENT ABX: *Vanco IV + Zosyn => Day #4 ID RECOMMENDATIONS/PLAN: 1. Patient is improved, he feels back to baseline, currently asymptomatic and he is eager to go home. 2. He has received adequate 4 days ABX course for concern gastroenteritis, the PermCath is new, all micro cultures are negative. 3. Recommend DC ABX and DC home. . Problems: Consultation Date/Type/Reason Admit Date/Time Jun 01, 2017 at 15:45 Exam/Review of Systems Vital Signs Vitals Vital Signs Date Time Temp Pulse Resp B/P Pulse Ox O2 Delivery O2 Flow Rate FiO2 06/04/17 08:32 98.3 74 17 158/83 100 06/04/17 04:00 Room Air 06/03/17 23:35 21 06/01/17 14:34 2 Intake and Output 06/03/17 06/03/17 06/04/17 15:00 23:00 07:00 Intake Total 50 ml 300 ml Balance 50 ml 300 ml Results Result Diagram: 06/04/17 0706/04/17 0705 Results 24 hrs Laboratory Tests Test 06/04/17 05:53 06/04/17 07:05 Lab Scanned Report BLOOD TRANSFUSION White Blood Count 12.3 H Red Blood Count 3.19 L Hemoglobin 9.6 L Hematocrit 29.4 L Mean Corpuscular Volume 92.2 Mean Corpuscular Hemoglobin 30.1 Mean Corpuscular Hemoglobin Concent 32.7 Red Cell Distribution Width 15.9 H Platelet Count 254 # Mean Platelet Volume 10.8 H Neutrophils % 69.2 Lymphocytes % 9.9 L Monocytes % 12.0 H Eosinophils % 7.0 Basophils % 1.1 Nucleated Red Blood Cells % 0.0 Neutrophils # 8.5 H Lymphocytes # 1.2 Monocytes # 1.5 H Eosinophils # 0.9 H Basophils # 0.1 Nucleated Red Blood Cells # 0.0 Sodium Level 136 Potassium Level 3.9 Chloride Level 96 L Carbon Dioxide Level 24 Anion Gap 20 H Blood Urea Nitrogen 50 H Creatinine 10.32 #H Glucose Level 91 Calcium Level 9.5 Phosphorus Level 7.6 H Magnesium Level 2.0 Medications Medications Current Medications Lorazepam (Ativan) 0.5 mg Q8H PRN PO ANXIETY; Start 06/01/17 at 17:30 Ondansetron HCl (Zofran Inj) 4 mg Q6H PRN IV NAUSEA AND/OR VOMITING; Start at 17:30 Acetaminophen (Tylenol Tab) 650 mg Q6H PRN PO PAIN LEVEL 1-3 OR FEVER Last administered on 06/03/17 22:37; Admin Dose 650 MG; Start 06/01/17 at 17:30 Acetaminophen/ Hydrocodone Bitart ([place] (5/325)) 1 tab Q6H PRN PO PAIN LEVEL 4 -6; Start 06/01/17 at 17:30 Morphine Sulfate (morphine) 2 mg Q4H PRN IV PAIN LEVEL 7-10; Start 06/01/17 at 17:30 Bisacodyl (Dulcolax) 5 mg DAILY PRN PO CONSTIPATION; Start 06/01/17 at 17:30 Metoprolol Tartrate (Lopressor) 50 mg BID PO Last administered on 06/03/17 21 :03; Admin Dose 50 MG; Start 06/01/17 at 21:00 Hydralazine HCl (Apresoline) 50 mg QID PO Last administered on 06/03/17 21:02 ; Admin Dose 50 MG; Start 06/01/17 at 21:00 Amlodipine Besylate (Norvasc) 10 mg DAILY PO Last administered on 06/03/17 09 :45; Admin Dose 10 MG; Start 06/02/17 at 09:00 Hydralazine HCl 10 mg 10 mg Q4H PRN IV sbp>160 Last administered on 06/03/17 17:26; Admin Dose 10 MG; Start 06/01/17 at 17:30 Piperacillin Sod/ Tazobactam Sod (Zosyn 2.25gm/ 50ml (Pmx)) 50 ml @ 100 mls/hr Q8 IVPB Last administered on 06/04/17 05:49; Admin Dose 100 MLS/HR; Start at 18:00 Gabapentin (Neurontin) 100 mg BID PO Last administered on 06/03/17 21:03; Admin Dose 100 MG; Start 06/03/17 at 21:00 HAL ALBERTO NP Jun 04, 2017 11:08
--- NOTE | 2017-06-04 11:50 | PN ---
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 Solorzano Subjective: Course reviewed with nursing staff Patient interviewed and examined All labs, imaging and other results reviewed The patient feeling well, poss ileus no SBO on ct scan, bs (+) no complaints plan for MRI today PHYSICAL EXAMINATION: GENERAL: Well developed, well nourished, alert & oriented x 3, in no acute distress SKIN: No lesions, no stigmata chronic liver disease, no evidence of bleeding diathesis LYMPHATIC: No palpable lymphadenopathy. HEAD: Normocephalic, atraumatic, no tenderness. EYES: Pupils equal reactive to light and accommodation, full extraocular movements, sclera clear, non-icteric, no discharge. EARS/NOSE AND THROAT: Ears normal, nose normal, oropharynx normal, oral membranes well hydrated without lesions. NECK: Supple, no masses, thyroid normal, CHEST: Inspection within normal limits. CARDIOVASCULAR: Heart: Regular rate and rhythm, no murmurs, gallops or rubs. P RESPIRATORY: Lungs clear to auscultation and percussion, no wheezing, no rubs GASTROINTESTINAL AND LIVER: Abdomen: Soft, non tenderness, non-distended, no hernias, no masses, no organomegaly, no ascites, no guarding, no rebound tenderness, normoactive bowel sounds. Rectal: Deferred. GENITOURINARY: [Male genitalia within normal limits.].] EXTREMITIES: No cyanosis, clubbing or edema. Problems: Exam/Review of Systems Vital Signs Vitals Vital Signs Date Time Temp Pulse Resp B/P Pulse Ox O2 Delivery O2 Flow Rate FiO2 06/04/17 08:32 98.3 74 17 158/83 100 06/04/17 04:00 Room Air 06/03/17 23:35 21 06/01/17 14:34 2 Intake and Output 06/03/17 06/03/17 06/04/17 15:00 23:00 07:00 Intake Total 50 ml 300 ml Balance 50 ml 300 ml Results Result Diagram: 06/04/1770406/04/17704 Results 24 hrs Laboratory Tests Test 06/04/17 05:53 06/04/17 07:05 Lab Scanned Report BLOOD TRANSFUSION White Blood Count 12.3 H Red Blood Count 3.19 L Hemoglobin 9.6 L Hematocrit 29.4 L Mean Corpuscular Volume 92.2 Mean Corpuscular Hemoglobin 30.1 Mean Corpuscular Hemoglobin Concent 32.7 Red Cell Distribution Width 15.9 H Platelet Count 254 # Mean Platelet Volume 10.8 H Neutrophils % 69.2 Lymphocytes % 9.9 L Monocytes % 12.0 H Eosinophils % 7.0 Basophils % 1.1 Nucleated Red Blood Cells % 0.0 Neutrophils # 8.5 H Lymphocytes # 1.2 Monocytes # 1.5 H Eosinophils # 0.9 H Basophils # 0.1 Nucleated Red Blood Cells # 0.0 Sodium Level 136 Potassium Level 3.9 Chloride Level 96 L Carbon Dioxide Level 24 Anion Gap 20 H Blood Urea Nitrogen 50 H Creatinine 10.32 #H Glucose Level 91 Calcium Level 9.5 Phosphorus Level 7.6 H Magnesium Level 2.0 Medications Medications Current Medications Lorazepam (Ativan) 0.5 mg Q8H PRN PO ANXIETY; Start 06/01/17 at 17:30 Ondansetron HCl (Zofran Inj) 4 mg Q6H PRN IV NAUSEA AND/OR VOMITING; Start at 17:30 Acetaminophen (Tylenol Tab) 650 mg Q6H PRN PO PAIN LEVEL 1-3 OR FEVER Last administered on 06/03/17 22:37; Admin Dose 650 MG; Start 06/01/17 at 17:30 Acetaminophen/ Hydrocodone Bitart ([place] (5/325)) 1 tab Q6H PRN PO PAIN LEVEL 4 -6; Start 06/01/17 at 17:30 Morphine Sulfate (morphine) 2 mg Q4H PRN IV PAIN LEVEL 7-10; Start 06/01/17 at 17:30 Bisacodyl (Dulcolax) 5 mg DAILY PRN PO CONSTIPATION; Start 06/01/17 at 17:30 Metoprolol Tartrate (Lopressor) 50 mg BID PO Last administered on 06/03/17 21 :03; Admin Dose 50 MG; Start 06/01/17 at 21:00 Hydralazine HCl (Apresoline) 50 mg QID PO Last administered on 06/03/17 21:02 ; Admin Dose 50 MG; Start 06/01/17 at 21:00 Amlodipine Besylate (Norvasc) 10 mg DAILY PO Last administered on 06/03/17 09 :45; Admin Dose 10 MG; Start 06/02/17 at 09:00 Hydralazine HCl (Apresoline) 10 mg Q4H PRN IV sbp>160 Last administered on 17:26; Admin Dose 10 MG; Start 06/01/17 at 17:30 Gabapentin (Neurontin) 100 mg BID PO Last administered on 06/03/17 21:03; Admin Dose 100 MG; Start 06/03/17 at 21:00 MARGO HONEYCUTT Jun 04, 2017 11:50
--- NOTE | 2017-06-04 12:43 | PN ---
Date/Time of Note Date/Time of Note DATE: 06/04/17 TIME: 12:42 Assessment/Plan VTE Prophylaxis VTE Prophylaxis Intervention: ambulation, SCD's Lines/Catheters IV [facility]from [facility] Saline Lock Urinary Cath still in place: No Assessment/Plan Chief Complaint/Hosp Course S: 06/02: feels better than yesterday, does not want colonoscopy at this time 11.24: no acute issues . feels well, no swallowing issues o: Physical exam General: Patient is laying in bed and answers questions appropriately Mentation: Patient is alert and oriented 4, Head: Normocephalic atraumatic Eyes: EOMI, pupils reactive to light Neck: Supple, nontender, midline Respiratory: diminished to auscultation bilaterally Cardiovascular: regular rate, no obvious murmurs Gastrointestinal: non-tender to palpation, bowel sounds heard. Neurological: Moves all extremities spontaneously Skin: No new skin lesions Patient is a 56-year-old male with a past medical history of end-stage renal disease who presents with low hemoglobin and history of recent bloody diarrhea. Assessment and plan Sepsis, GI source -Broad-spectrum antibiotics, lactic acid within normal limits, patient on end- stage renal disease with no urine production, judicious fluid management, encourage p.o. intake for now. -Patient's fever already within normal limits, white count improving -ID consulted, adequate course for ?gastroenteritis GI bleed -Questionable infectious etiology given bloody diarrhea, Protonix drip to DC as no signs of upper GI bleed and negative FOBT. likely secondary from possible infectious cause. -CT abdomen noted, ileus, no SBO -refusing colonoscopy, f/u outpatient GI -Stool studies sent out, FOBT neg -Monitor closely -no longer bleeding End-stage renal disease on hemodialysis -HD to be ordered per renal, Dr. Real. -Right permacath Hypertension -Patient on what appears to be 125 mg metoprolol twice daily, curiously high dose, will be conservative and start at 50 mg twice daily for now -Continue hydralazine and amlodipine anemia -GI source, with bowel movement, no blood seen per patient in most recent bowel movement renal cyst -mri pending DISPO -patient to get MRI and likely DC tomorrow Problems: Exam/Review of Systems Vital Signs Vitals Vital Signs Date Time Temp Pulse Resp B/P Pulse Ox O2 Delivery O2 Flow Rate FiO2 06/04/17 12:04 75 06/04/17 11:47 97.7 17 157/74 99 06/04/17 04:00 Room Air 06/03/17 23:35 21 06/01/17 14:34 2 Intake and Output 06/03/17 06/03/17 06/04/17 15:00 23:00 07:00 Intake Total 50 ml 300 ml Balance 50 ml 300 ml Results Result Diagram: 06/04/1770406/04/17704 Results 24 hrs Laboratory Tests Test 06/04/17 05:53 06/04/17 07:05 Lab Scanned Report BLOOD TRANSFUSION White Blood Count 12.3 H Red Blood Count 3.19 L Hemoglobin 9.6 L Hematocrit 29.4 L Mean Corpuscular Volume 92.2 Mean Corpuscular Hemoglobin 30.1 Mean Corpuscular Hemoglobin Concent 32.7 Red Cell Distribution Width 15.9 H Platelet Count 254 # Mean Platelet Volume 10.8 H Neutrophils % 69.2 Lymphocytes % 9.9 L Monocytes % 12.0 H Eosinophils % 7.0 Basophils % 1.1 Nucleated Red Blood Cells % 0.0 Neutrophils # 8.5 H Lymphocytes # 1.2 Monocytes # 1.5 H Eosinophils # 0.9 H Basophils # 0.1 Nucleated Red Blood Cells # 0.0 Sodium Level 136 Potassium Level 3.9 Chloride Level 96 L Carbon Dioxide Level 24 Anion Gap 20 H Blood Urea Nitrogen 50 H Creatinine 10.32 #H Glucose Level 91 Calcium Level 9.5 Phosphorus Level 7.6 H Magnesium Level 2.0 Medications Medications Current Medications Lorazepam (Ativan) 0.5 mg Q8H PRN PO ANXIETY; Start 06/01/17 at 17:30 Ondansetron HCl (Zofran Inj) 4 mg Q6H PRN IV NAUSEA AND/OR VOMITING; Start at 17:30 Acetaminophen (Tylenol Tab) 650 mg Q6H PRN PO PAIN LEVEL 1-3 OR FEVER Last administered on 06/03/17t 22:37; Admin Dose 650 MG; Start 06/01/17 at 17:30 Acetaminophen/ Hydrocodone Bitart ([place] (5/325)) 1 tab Q6H PRN PO PAIN LEVEL 4 -6; Start 06/01/17 at 17:30 Morphine Sulfate (morphine) 2 mg Q4H PRN IV PAIN LEVEL 7-10; Start 06/01/17 at 17:30 Bisacodyl (Dulcolax) 5 mg DAILY PRN PO CONSTIPATION; Start 06/01/17 at 17:30 Metoprolol Tartrate (Lopressor) 50 mg BID PO Last administered on 06/03/17 21 :03; Admin Dose 50 MG; Start 06/01/17 at 21:00 Hydralazine HCl (Apresoline) 50 mg QID PO Last administered on 06/03/17 21:02 ; Admin Dose 50 MG; Start 06/01/17 at 21:00 Amlodipine Besylate (Norvasc) 10 mg DAILY PO Last administered on 06/03/17 09 :45; Admin Dose 10 MG; Start 06/02/17 at 09:00 Hydralazine HCl (Apresoline) 10 mg Q4H PRN IV sbp>160 Last administered on 17:26; Admin Dose 10 MG; Start 06/01/17 at 17:30 Gabapentin (Neurontin) 100 mg BID PO Last administered on 06/03/17 21:03; Admin Dose 100 MG; Start 06/03/17 at 21:00 TITO PENA Jun 04, 2017 12:43
[2017-06-04] MEDS: hydrALAzine 20 MG INJ IV PRN (15:34)
[2017-06-04] MEDS: ACETAMINOPHEN 325 MG TAB PO PRN (19:04)
[2017-06-05] VITALS (7 sets, daily range): BP systolic 148–168; BP diastolic 69–77; PULSE 69–80; RESP 16–20
--- NOTE | 2017-06-05 06:18 | RADRPT ---
PROCEDURE: MR Abdomen with and without contrast CLINICAL INDICATION: Renal cyst. TECHNIQUE: MRI of the abdomen with and without contrast was performed on a 3T GE scanner both befo re and following the uncomplicated intravenous injection of 20 cc of Magnevist. COMPARISON: CT, 06/03/2017. FINDINGS: Liver:Normal. Gallbladder and biliary system: Normal. Pancreas: Normal. Spleen: Normal. Adrenals: Normal. Kidneys: Indeterminate T2 hypointense lesion occupying the anterior right kidney measuring up to 2.6 cm. There are multiple additional cystic lesions that are incompletely characterized without intrav enous contrast Marked asymmetric cortical thinning/scarring involving the left kidney with ipsilater al pelviectasis. Bowel: Normal. Mesentery/Peritoneum: Normal. Other: None. IMPRESSION: Examination is significantly limited by respiratory motion artifact and absence of intravenous contr ast. Indeterminate 2.6 cm right renal mass that is incompletely characterized without intravenous contras t. Recommend characterization with contrast enhanced multiphasic CT of the kidneys using a renal mas s protocol. Multiple additional cystic lesions in the kidneys that are incompletely characterized without intrav enous contrast. Asymmetric atrophy of the left kidney with marked cortical thinning. RPTAT: [facility] .Jignesh White MD, Date Time Electronically viewed and signed by .Jignesh White MD, on 06/05/2017 06:18 .C/
[2017-06-05] MEDS: ALBUTEROL/IPRATROPIUM (NEB) 3 ML AMP HHN SCH (08:12)
[2017-06-05] MEDS: GABAPENTIN 100 MG CAP PO SCH (08:18)
[2017-06-05] MEDS: METOPROLOL 50 MG TAB PO SCH (08:19)
[2017-06-05] MEDS: AMLODIPINE 10 MG TAB PO SCH (08:19)
[2017-06-05 08:31] LABS: BASOPHIL # 0.1 10^3/ul (0.0-0.1); BASOPHILS % 1.2 % (0.0-2.0); EOSINOPHILS # 0.9 10^3/ul (0.0-0.5); HEMATOCRIT 30.2 % (42.0-52.0); HEMOGLOBIN 9.9 g/dl (14.0-18.0); LYMPHOCYTES # 1.3 10^3/ul (0.8-2.9); LYMPHOCYTES % 13.6 % (15.0-51.0); MEAN CORPUSCULAR HEMOGLOBIN 30.5 pg (29.0-33.0); MEAN CORPUSCULAR HGB CONC 32.8 g/dl (32.0-37.0); MEAN CORPUSCULAR VOLUME 92.9 fl (82.0-101.0); MEAN PLATELET VOLUME 10.5 fl (7.4-10.4); MONOCYTE # 1.2 10^3/ul (0.3-0.9); MONOCYTES % 12.6 % (0.0-11.0); NEUTROPHILS % 62.9 % (39.0-77.0); PLATELET COUNT 254 10^3/UL (140-415); RED BLOOD COUNT 3.25 10^6/ul (4.70-6.10); RED CELL DISTRIBUTION WIDTH 15.4 % (11.5-14.5); WHITE BLOOD COUNT 9.6 10^3/ul (4.8-10.8)
[2017-06-05 09:00] LABS: CALCIUM 9.8 mg/dl (8.4-10.2); MAGNESIUM 1.9 mg/dl (1.7-2.5); PHOSPHORUS 6.1 mg/dl (2.5-4.9); POTASSIUM 3.6 mmol/L (3.5-5.1)
[2017-06-05 09:13] LABS: CREATININE 8.56 mg/dl (0.61-1.24)
--- NOTE | 2017-06-05 09:57 | PDOCDIS ---
Discharge Instructions CONDITION Patient Condition: Stable HOME CARE INSTRUCTIONS: Special Diet: RENAL FOLLOW UP/APPOINTMENTS Follow-up Plan 1. Follow up with Dr. Patel, nephrology to discuss further arrangements and results of MRI done in the hospital for renal mass 2. Continue to take all medication as directed TITO PENA Jun 05, 2017 09:57
--- NOTE | 2017-06-05 12:22 | DS ---
Date/Time of Note Date/Time of Note DATE: 06/05/17 TIME: 12:20 Discharge Summary Admission/Discharge Info Admit Date/Time Jun 01, 2017 at 15:45 Discharge Date/Time Jun 05, 2017 at 10:36 Patient Condition: Stable Hx of Present Illness Patient is a 56-year-old male with a past medical history significant for hypertension, end-stage renal disease who presents to [facility] after being sent by his dialysis center for low hemoglobin. Patient's hemoglobin upon arrival was 7.2 and patient also complained about a week of feeling unwell, fevers, bloody stool as well as generalized weakness. Patient states that although he appears comfortable, he states that he feels weak. Patient is wondering if he is going to get blood. Patient denies any chest pain but does endorse some shortness of breath as well as nausea. Patient states that he also continues to get bloody diarrhea at this time although much improved than before. Patient has also been on oral vancomycin by his primary care provider for diarrhea and fever. PMH: End-stage renal disease on hemodialysis, hypertension, GERD PSH: Permacath Meds: It should be noted patient's current medications was reviewed at bedside, different from discharge medications during last admission, includes metformin 100 twice daily, omeprazole, hydralazine, amlodipine Hospital Course Patient is a 56-year-old [facility] male with a past medical history of end- stage renal disease on hemodialysis who originally presented with low hemoglobin. Patient stated that he had episodes of bloody diarrhea however upon admission the diarrhea had subsided. There were no signs of infection and fecal occult blood was negative during this admission. Gastroenterology and infectious disease saw the patient, patient refused colonoscopy and since his hemoglobin had stabilized patient wanted to follow-up outpatient with his primary care provider instead. Infectious disease also saw the patient and subsequently stopped antibiotics as there were no clear signs of any active infection and nephrology also saw the patient and performed hemodialysis as well as blood pressure management. There was a questionable mass seen on imaging and MRI was performed per patient's bulk pallet builder's request and patient will follow up with his bulk pallet builder as soon as possible in order to discuss possible discussion regarding mass on the right kidney. It was explained to the patient that he will need to follow-up with his bulk pallet builder as soon as possible for further workup of the mass and his bulk pallet builder is aware. Patient' s blood pressure was mildly elevated during this encounter, adjustments to his medications were offered, however patient wanted to adjust them in the outpatient setting with his primary care provider and bulk pallet builder instead. Patient will be discharged to follow-up with his bulk pallet builder and primary care provider as soon as possible Sepsis, questionable GI source GI bleed, resolved End-stage renal disease on hemodialysis Hypertension Anemia, likely transient GI infection Renal cyst\mass, to follow-up with bulk pallet builder Home Meds Active Scripts Metoprolol Tartrate* (Lopressor*) 50 Mg Tab, 50 MG PO BID for 30 Days, #60 TAB 0 Refills Prov:REENA CLAUDIO MD 02/27/17 Reported Medications Simvastatin* (Zocor*) 20 Mg Tablet, 20 MG PO QHS, #30 TAB 05/06/17 Tamsulosin Hcl* (Tamsulosin Hcl*) 0.4 Mg Cap.er.24h, 0.4 MG PO HS, CAP 02/26/17 Sevelamer Carbonate* (Renvela*) 800 Mg Tablet, 2.4 GM PO WITH MEALS, TAB 01/03/17 Gabapentin* (Gabapentin*) 300 Mg Capsule, 300 MG PO DAILY, #30 CAP 01/03/17 Amlodipine Besylate* (Amlodipine Besylate*) 10 Mg Tablet, 10 MG PO DAILY, #30 TAB 01/03/17 Follow-up Plan 1. Follow up with Dr. Patel, nephrology to discuss further arrangements and results of MRI done in the hospital for renal mass 2. Continue to take all medication as directed Primary Care Provider Fitz Davis MD Time spent on discharge: > 30 minutes Pending Labs Laboratory Tests Test 06/05/17 07:42 White Blood Count 9.610^3/ul (4.8-10.8) Red Blood Count 3.2510^6/ul (4.70-6.10) Hemoglobin 9.9g/dl (14.0-18.0) Hematocrit 30.2% (42.0-52.0) Mean Corpuscular Volume 92.9fl (82.0-101.0) Mean Corpuscular Hemoglobin 30.5pg (29.0-33.0) Mean Corpuscular Hemoglobin Concent 32.8g/dl (32.0-37.0) Red Cell Distribution Width 15.4% (11.5-14.5) Platelet Count 00317^3/UL (140-415) Mean Platelet Volume 10.5fl (7.4-10.4) Neutrophils % 62.9% (39.0-77.0) Lymphocytes % 13.6% (15.0-51.0) Monocytes % 12.6% (0.0-11.0) Eosinophils % 9.0% (0.0-7.0) Basophils % 1.2% (0.0-2.0) Nucleated Red Blood Cells % 0.0/100WBC (0.0-0.0) Neutrophils # 6.010^3/ul (1.6-7.5) Lymphocytes # 1.310^3/ul (0.8-2.9) Monocytes # 1.210^3/ul (0.3-0.9) Eosinophils # 0.910^3/ul (0.0-0.5) Basophils # 0.110^3/ul (0.0-0.1) Nucleated Red Blood Cells # 0.010^3/ul (0.0-0.0) Sodium Level 139mmol/L (135-144) Potassium Level 3.6mmol/L (3.5-5.1) Chloride Level 99mmol/L (97-110) Carbon Dioxide Level 29mmol/L (21-31) Anion Gap 15 (8-16) Blood Urea Nitrogen 28mg/dl (7-20) Creatinine 8.56mg/dl (0.61-1.24) Glucose Level 88mg/dl (70-220) Calcium Level 9.8mg/dl (8.4-10.2) Phosphorus Level 6.1mg/dl (2.5-4.9) Magnesium Level 1.9mg/dl (1.7-2.5) FITZ PENA Jun 05, 2017 12:22
== END 2017-06-05 10:36 | disposition home or self-care (01) | DRG 871 ==
LOC: E/R 12:22 → PP2 15:45 → ICU 06-02 09:00 → TEL 06-02 16:40
PROVIDERS: ADMIT Hospitalist; ATTEND Hospitalist
PROC: 5A1D70Z Performance of Urinary Filtration, Intermittent, Less than 6 Hours Per Day (ICD-10-PCS; principal; 2017-06-01)
PROC: 30233N1 Transfusion of Nonautologous Red Blood Cells into Peripheral Vein, Percutaneous Approach (ICD-10-PCS; 2017-06-02)
DX: A41.9 Sepsis, unspecified organism (principal); N18.6 End stage renal disease; I12.0 Hypertensive chronic kidney disease with stage 5 chronic kidney disease or end stage renal disease; D62 Acute posthemorrhagic anemia; K56.7 Ileus, unspecified; K92.1 Melena; K52.9 Noninfective gastroenteritis and colitis, unspecified; N28.1 Cyst of kidney, acquired
CPT/HCPCS: 36415; 36430; 71010; 74176; 74181; 80048; 80053; 80202; 82270; 83605; 83735; 84100; 84484; 85025; 85610; 85730; 86674; 86850; 86900; 86901; 86920; 87040; 87045; 87075; 87081; 87205; 87338; 87400; 90935; 93005; 94640; 94664; 96374; 96375; C9113; J0360; J0692; J2543; J3370; J7040; P9016

== ENCOUNTER 2017-07-10 12:25 | Inpatient (IN) | END 2017-07-19 18:11 | disposition home or self-care (01) | DRG 871 ==

== ENCOUNTER 2017-11-10 07:55 | Day surgery (SDC) | END 2017-11-10 15:51 | disposition home or self-care (01) ==

== ENCOUNTER 2017-11-17 17:46 | Inpatient (IN) | END 2017-11-22 18:30 | disposition home or self-care (01) | DRG 391 ==